=== PATIENT | female | born 1940 | race Caucasian/White ===

== ENCOUNTER → 2020-08-02 12:24 | Outpatient (BNVA) | payer MEDICARE, MEDICAID, SELFPAY | PROVIDERS: Visit Provider Nurse Practitioner Family | DX: M25.531 Pain in right wrist (principal) | CPT/HCPCS: 73110 ==

== ENCOUNTER 2022-11-12 18:51 | Inpatient (IN) | payer MEDICARE, MEDICAID, SELFPAY ==
[2022-11-12] VITALS (7 sets, daily range): BP systolic 135–166; BP diastolic 89–118; PULSE 93–112; RESP 20–27; TEMP 36.8–36.9; O2SAT 93–98; BMI 51.0
--- NOTE | 2022-11-12 18:55 | XRR_ITS ---
PROCEDURE INFORMATION: Exam: XR Chest Exam date and time: 11/12/2022 7:02 PM Age: 82 years old Clinical indication: Shortness of breath; Additional info: SOB TECHNIQUE: Imaging protocol: Radiologic exam of the chest. Views: 1 view. COMPARISON: No relevant prior studies available. FINDINGS: Lungs: The right lung is clear. Mild COPD likely. Left basilar atelectasis or scarring possible. Pleural spaces: Unremarkable. No pleural effusion. No pneumothorax. Heart/Mediastinum: The heart is large. Bones/joints: Unremarkable. XR/XR chest 1V portable [id number] IMPRESSION: 1. Large heart with vascular calcifications and mild COPD. 2. Left lung base atelectasis or scarring. Pneumonia less likely. Recommend 1 week follow-up two-view chest x-ray.
--- NOTE | 2022-11-12 18:56 | ED_ITS ---
HPI - SOB/Dyspnea General: Chief Complaint: Shortness of Breath/Dyspnea Stated Complaint: SOB Time Seen by Provider: 11/12/22 18:52 Source: patient Mode of arrival: ambulatory Limitations: no limitations History of Present Illness: HPI Narrative: 82-year-old female who has a history of COPD states over the last 2 days she has had cough congestion flulike symptoms she denies any fevers. Patient seen at clinic was 88% on room air was transferred here from the clinic. She denies any vomiting or diarrhea Associated symptoms: Deny abdominal pain, chest pain, nausea or vomiting Review of Systems Const: Reports: chills and body aches Eyes: Denies: blurry vision or eye discomfort ENMT: Denies: throat pain or dental pain Card: Denies: chest pain Resp: Reports: dyspnea and non-productive cough GI: Denies: abdominal pain, nausea, vomiting or diarrhea : Denies: dysuria Musc: Denies: neck pain or back pain Skin/Breast: Denies: rash Neuro: Denies: headache(s) Psych: Denies: depression [place]/Lymph: Denies: easy bruising All/Imm: Denies: urticaria PFSH ED PFSH: Medical History Major depressive disorder, recurrent, in full remission Psychiatric care Social History Smoking and tobacco status: never smoked Physical Exam Const: COMMON NORMALS: patient oriented x3 HENMT: COMMON NORMALS: normocephalic and atraumatic HEAD & SCALP: normocephalic and atraumatic Eye: COMMON NORMALS: Equal, round and reactive pupils present and EOMs intact bilaterally PUPIL: Yes Equal, round and reactive pupils present Neck/C-Spine: COMMON NORMALS: full ROM and supple Chest: COMMONS NORMALS: normal inspection of the chest and normal palpation of entire chest wall Resp: COMMON NORMALS: normal respiratory effort, No retractions, No use of accessory muscles and clear to auscultation bilaterally AUSCULTATION: clear to auscultation bilaterally Cardio: COMMON NORMALS: regular rate, regular rhythm and No murmurs present (Cardio) RATE: regular rate RHYTHM: regular rhythm GI: COMMON NORMALS: Normal to inspection, nondistended, normoactive bowel sounds present, Soft to palpation, non-tender and no masses PALPATION: Yes Soft to palpation Extremity: COMMON NORMALS: normal to inspection and full ROM Neuro: COMMON NORMALS: patient oriented x3, moves all extremities and no focal motor deficits Psych: COMMON NORMALS: mental status grossly normal, Normal thought process present and cooperative THOUGHT PROCESS: Normal thought process present Skin: COMMON NORMALS: no rashes or lesions noted and no wounds GENERAL SKIN EXAM: no rashes or lesions noted Course Vital Signs: Vital signs: Vital Signs Temperature 98.4 F 11/12/22 18:55 Pulse Rate 110 H 11/12/22 18:55 Respiratory Rate 24 H 11/12/22 18:55 Blood Pressure 156/96 11/12/22 18:55 Pulse Oximetry 98 11/12/22 18:55 MDM - SOB/Dyspnea Medical Decision Making Patient presents here with upper restaurant infection she had cough congestion she has been hypoxic as well did give her breathing treatment steroids she continued be hypoxic here requiring oxygen spoke to hospitalist will admit this time. Lab Data 11/12/22 19:30 11/12/22 19:30 Labs/Radiology: Radiology Impressions Chest X-Ray 11/12/22 18:55 IMPRESSION: 1. Large heart with vascular calcifications and mild COPD. 2. Left lung base atelectasis or scarring. Pneumonia less likely. Recommend 1 week follow-up two-view chest x-ray. Laboratory Results WBC 5.6 10^3/uL (4.0-10.0) 11/12/22 19:30 RBC 4.17 10^6/uL (4.1-5.3) 11/12/22 19:30 Hgb 12.6 g/dL (11.5-15.3) 11/12/22 19:30 Hct 40.2 % (37.0-47.0) 11/12/22 19:30 MCV 96.4 fl (81-99) 11/12/22 19:30 MCH 30.2 pg (28.0-34.0) 11/12/22 19:30 MCHC 31.3 g/dL (30.0-36.0) 11/12/22 19:30 RDW 12.6 % (12.1-15.1) 11/12/22 19:30 Plt Count 207 10^3/cmm (130-400) 11/12/22 19:30 MPV 10.4 fL (7.4-10.4) 11/12/22 19:30 Neut % (Auto) 70.3 % 11/12/22 19: Lymph % (Auto) 20.1 % 11/12/22 19:30 [place] % (Auto) 8.4 % 11/12/22 19:30 Eos % (Auto) 0.5 % 11/12/22 19:30 Baso % (Auto) 0.5 % 11/12/22 19:30 Neut # (Auto) 3.91 10^3/uL (1.8-7.7) 11/12/22 19: Lymph # (Auto) 1.1 10^3/uL (0.8-4.8) 11/12/22 19: [place] # (Auto) 0.5 10^3/uL (0.2-0.9) 11/12/22 19: Eos # (Auto) 0.0 10^3/uL (0.0-0.8) 11/12/22 19: Baso # (Auto) 0.0 10^3/uL (0.0-0.1) 11/12/22 19: Nucleated RBC % (auto) 0 % 11/12/22: Nucleated RBCs # 0.0 /100WBC 11/12/22 19:30 Specimen Type Arterial 11/12/22 19:03 Sample Site Radial, left 11/12/22 19:03 ABG pH 7.43 (7.35-7.45) 11/12/22 19:03 ABG pCO2 44.6 mmHg (35-45) 11/12/22 19:03 ABG pO2 69.1 mmHg (80.0-100.0) L 11/12/22 19:03 ABG HCO3 29.7 mmol/L (22-26) H 11/12/22 19:03 ABG Base Excess 4.6 mmol/L (-2.0-2.0) H 11/12/22 19:03 Ras Test Pos 11/12/22 19:03 Hematocrit 40.1 % (37-47) 11/12/22 19:03 Hgb O2 Saturation 93.4 % (95-100) L 11/12/22 19:03 Carboxyhemoglobin 1.1 %THgb (0.4-20.1) 11/12/22 19:03 Methemoglobin 0.9 % (0.4-1.5) 11/12/22 19:03 Total Hemoglobin 13.1 g/dL (12-16) 11/12/22 19:03 O2 Delivery Device Nc 11/12/22 19:03 O2 Liters/Min 3.0 % 11/12/22 19:03 FiO2 32.0 % 11/12/22 19:03 Accounts Receivable Manager ID [email or web address] 11/12/22 19:03 Sodium 135 mmol/L (136-145) L 11/12/22 19:30 Potassium 4.0 mmol/L (3.5-5.1) 11/12/22 19:30 Chloride 99 mmol/L (98-107) 11/12/22 19:30 Carbon Dioxide 25 mmol/L (22-29) 11/12/22 19:30 Anion Gap 15.0 (5-19) 11/12/22 19:30 BUN 14 mg/dL (8-23) 11/12/22 19:30 Creatinine 0.7 mg/dL (0.5-0.9) 11/12/22 19:30 GFR Calculation Not Reportable 11/12/22 19:30 Glucose 147 mg/dL (65-115) H 11/12/22 19:30 Calculated Osmolality 283 mOsm/kg (285-295) L 11/12/22 19:30 Calcium 9.1 mg/dL (8.5-10.5) 11/12/22 19:30 Total Bilirubin 0.2 mg/dL (0.15-1.2) 11/12/22 19:30 AST 39 U/L (0-32) H 11/12/22 19:30 ALT 33 U/L (0-33) 11/12/22 19:30 Alkaline Phosphatase 102 U/L (35-105) 11/12/22 19:30 NT-Pro-B Natriuret Pep 1215 pg/mL (0-450) H 11/12/22 19:30 Total Protein 6.9 g/dL (6.6-8.7) 11/12/22 19:30 Albumin 3.3 g/dL (3.5-5.2) L 11/12/22 19:30 Globulin 3.6 g/dL (1.3-4.6) 11/12/22 19:30 Influenza Type A Ag negative (Negative) 11/12/22 19:30 Influenza Type B Ag negative (Negative) 11/12/22 19:30 SARS-CoV-2 Ag (Rapid) negative (Negative) 11/12/22 19:30 EKG Data EKG 1: I personally reviewed and interpreted this EKG as follows: EKG Interpretation Date: 11/12/22 EKG interpretation time: 19:07 Interpretation: nsr hr [address] or t wave abnormalities qrs 95 qtc 383 Discharge Plan Discharge Patient Disposition: Admitted As Inpatient Clinical Impression: Acute respiratory failure with hypoxia, Upper respiratory infection Condition: Stable Coding Level of Care Code ED Professor Of Special Education for Estevan Fwd Exam Comprehensive
--- NOTE | 2022-11-12 19:07 | ECG_ITS ---
[facility] Test Date: 2022-11-12 Pat Name: Shellie Odell Department: Room: Gender: Female Network Infrastructure Architect: : 1940 Requested By: Meghann Hayden Order Number: [id number] Nida MD: Paulo Nam M.D. Measurements Intervals [place] Rate: 92 P: 29 NE: 149 QRS: -12 QRSD: 95 T: 26 QT: 334 QTc: 413 Interpretive Statements SINUS RHYTHM WITH SINUS ARRHYTHMIA POSSIBLE ANTERIOR MYOCARDIAL INFARCTION , PROBABLY OLD [30 ms Q WAVE IN V3/V4, OR R < 0.2 mV IN V4] No previous ECG available for comparison Electronically Signed On 11-13-2022 20:16:39 SMUTTER by Paulo Nam M.D. [id number]
[2022-11-12 19:15] LABS: ABG PCO2 44.6 mmHg (35-45); ABG PH Result 7.43 (7.35-7.45); Arterial Blood Gas Hematocrit 40.1 % (37-47); Base Excess ABG 4.6 mmol/L (-2.0-2.0); Blood Gas Allen Test Pos; Blood Gas Sample Site Radial, left; Blood Gas Sample Type Arterial; Carboxyhemoglobin 1.1 %THgb (0.4-20.1); HCO3 ABG 29.7 mmol/L (22-26); HGB O2 Sat 93.4 % (95-100); Methemoglobin 0.9 % (0.4-1.5); Oxygen Device NC; PO2 ABG 69.1 mmHg (80.0-100.0); Total Hemoglobin 13.1 g/dL (12-16)
[2022-11-12 19:35] LABS: Basophils % 0.5 %; Eosinophils % 0.5 %; Hematocrit 40.2 % (37.0-47.0); Hemoglobin 12.6 g/dL (11.5-15.3); Lymphocytes # 1.1 10^3/uL (0.8-4.8); Lymphocytes % 20.1 %; Mean Corpuscular HGB Conc 31.3 g/dL (30.0-36.0); Mean Corpuscular Hemoglobin 30.2 pg (28.0-34.0); Mean Corpuscular Volume 96.4 fl (81-99); Mean Platelet Volume 10.4 fL (7.4-10.4); Monocytes # 0.5 10^3/uL (0.2-0.9); Monocytes % 8.4 %; Neutrophils # 3.91 10^3/uL (1.8-7.7); Neutrophils % 70.3 %; Nucleated Red Blood Cells % 0 %; Platelet Count 207 10^3/cmm (130-400); Red Blood Count 4.17 10^6/uL (4.1-5.3); Red Cell Distribution Width 12.6 % (12.1-15.1); White Blood Count 5.6 10^3/uL (4.0-10.0)
[2022-11-12 19:51] LABS: Influenza A by IFA negative (Negative); Influenza B by IFA negative (Negative); SARS Covid-2 Antigen negative (Negative)
[2022-11-12 20:04] LABS: Alanine Aminotransferase 33 U/L (0-33); Albumin Level 3.3 g/dL (3.5-5.2); Alkaline Phosphatase 102 U/L (35-105); Aspartate Amino Transferase 39 U/L (0-32); Blood Urea Nitrogen 14 mg/dL (8-23); Calcium 9.1 mg/dL (8.5-10.5); Carbon Dioxide 25 mmol/L (22-29); Chloride 99 mmol/L (98-107); Globulin 3.6 g/dL (1.3-4.6); Glucose 147 mg/dL (65-115); NT Pro B Type Natriuretic Pept 1215 pg/mL (0-450); Osmolality Calculated 283 mOsm/kg (285-295); Sodium 135 mmol/L (136-145); Total Bilirubin 0.2 mg/dL (0.15-1.2); Total Protein 6.9 g/dL (6.6-8.7)
[2022-11-12] MEDS: cefTRIAXone 1,000 MG in sodium chloride 0.9% (plus) 50 ML 100 MG IV (21:06)
--- NOTE | 2022-11-12 21:21 | ECG_ITS ---
[facility] Test Date: 2022-11-12 Pat Name: Shellie Odell Department: Room: 279 Gender: Female Supervisor Properties: : 1940 Requested By: Pastor Troy Order Number: [id number] Nida MD: Paulo Nam M.D. Measurements Intervals [place] Rate: 96 P: 34 [place]: 152 QRS: -14 QRSD: 96 T: 62 QT: 349 QTc: 441 Interpretive Statements SINUS RHYTHM WITH SINUS ARRHYTHMIA LOW QRS VOLTAGE IN PRECORDIAL LEADS [QRS DEFLECTION < 1.0 mV IN CHEST LEADS] PATTERN CONSISTENT WITH PULMONARY DISEASE Compared to ECG 11/12/2022 19:07:18 Low QRS voltage now present Myocardial infarct finding no longer present Electronically Signed On 11-13-2022 20:17:03 LANGUAGE THERAPIST by Paulo Nam M.D. [id number]
--- NOTE | 2022-11-12 21:27 | PM.HP ---
Providers/Chief Complaint Admitting Physician: Pastor Troy MD Primary Care Provider: Edmundo Sanders MD Chief Complaint: SOB History of Present Illness Shellie Odell is a 82 year old female with a past medical history of morbid obesity, history of tremor, history of depression, hypothyroidism, hyperlipidemia who presents [facility] due to increased shortness of breath, wheezing, cough. Patient tells that she does not have a history of smoking, but has COPD or asthma but her primary care provider is unsure. For the last few months she has been feeling increasingly short of breath, has had increased lower extremity edema, no chest pain, no palpitations, for the last few days her shortness of breath, and cough has worsened. She denies any fevers, she has been on antibiotics for UTI. Review of Systems Const: Denies: fever(s) Card: Denies: chest pain or palpitations Resp: Reports: dyspnea GI: Denies: abdominal pain Neuro: Denies: headache(s) Medications/Allergies Home Medications Medication Instructions Recorded Confirmed Last Taken Type atenolol 50 mg tablet 50 mg PO DAILY 01/10/20 11/12/22 Unknown History fexofenadine 60 mg tablet (Omaira 60 mg PO DAILY 01/10/20 11/12/22 Unknown History Allergy) levothyroxine 88 mcg capsule 88 mcg PO DAILY 01/10/20 11/12/22 Unknown History primidone 50 mg tablet (Mysoline) 300 mg PO .bedtime 01/10/20 11/12/22 Unknown History simvastatin 20 mg tablet (Zocor) 20 mg PO DAILY 01/10/20 11/12/22 Unknown History tramadol 50 mg tablet 50 mg PO QID PRN 01/10/20 11/12/22 Unknown History naproxen 500 mg tablet 500 mg PO BID PRN pain #30 tabs 08/02/20 11/12/22 Unknown Rx fluvoxamine 100 mg tablet See Rx Instructions .Route 08/24/22 11/12/22 Unknown Rx .COMPLEX #60 tabs fluvoxamine 50 mg tablet See Rx Instructions .Route 08/24/22 11/12/22 Unknown Rx .COMPLEX #30 tabs trazodone 150 mg tablet See Rx Instructions .Route 08/24/22 11/12/22 Unknown Rx .COMPLEX #60 tabs Allergies Allergy/AdvReac Type Severity Reaction Status Date / Time clarithromycin [From Biaxin] Allergy Unknown Unknown Verified 11/12/22 17:05 levofloxacin [From Levaquin] Allergy Unknown unk Verified 11/12/22 17:05 Sulfa (Sulfonamide Allergy Unknown unk Verified 11/12/22 17:05 Antibiotics) PFSH Acute PFSH: Medical History (Updated 11/12/22 @ 21:32 by Pastor Troy MD) Major depressive disorder, recurrent, in full remission Psychiatric care Surgical History (Updated 11/12/22 @ 21:29 by Pastor Troy MD) History of right knee surgery Family History (Updated 11/12/22 @ 21:29 by Pastor Troy MD) Other Hypertension Social History (Updated 11/12/22 @ 21:29 by Pastor Tryo MD) Smoking and tobacco status: never smoked Alcohol intake: never Substance/Drug Use: never Vitals/I&O/Wt Last Vital Signs Temp 98.4 F 11/12/22 18:55 Pulse 112 H 11/12/22 21:06 Resp 27 H 11/12/22 21:06 BP 135/89 11/12/22 21:06 Pulse Ox 96 11/12/22 21:06 O2 Del Method 11/12/22 21:06 O2 Flow Rate 2 11/12/22 21:06 Weight last 48 hrs Weight 114.759 kg Physical Exam Const: COMMON NORMALS: no acute distress and patient oriented x3 HENMT: COMMON NORMALS: normocephalic HEAD & SCALP: normocephalic Eye: COMMON NORMALS: Equal, round and reactive pupils present and EOMs intact bilaterally Neck/C-Spine: COMMON NORMALS: no JVD Resp: COMMON NORMALS: normal respiratory effort, No retractions and No use of accessory muscles AUSCULTATION: crackles Cardio: COMMON NORMALS: regular rate, regular rhythm, S1 normal heart sound present and S2 normal heart sound present RATE: regular rate RHYTHM: regular rhythm HEART SOUNDS: S1 normal heart sound present and S2 normal heart sound present GI: COMMON NORMALS: Normal to inspection, nondistended, normoactive bowel sounds present, Soft to palpation and non-tender PALPATION: Yes Soft to palpation and Yes No hepatosplenomegaly present Extremity: COMMON NORMALS: no calf tenderness NARRATIVE EXTREMITY EXAM: Has 2+ pitting edema Neuro: COMMON NORMALS: patient oriented x3, CN's II-XII intact bilaterally, moves all extremities and no focal motor deficits Psych: COMMON NORMALS: mental status grossly normal Data 11/12/22 19:30 11/12/22 19:30 Micro: Microbiology 11/12/22 20:32 Blood Culture - Preliminary Blood SPECIMEN COLLECTED 11/12/22 20:27 Blood Culture - Preliminary Blood SPECIMEN COLLECTED A&P Assessment and plan (1) Shortness of breath: (2) Hypoxia: Plan Shortness of breath and hypoxia -Likely secondary to CHF exacerbation, has lower extremity pitting edema, crackles on exam elevated BNP -Chest x-ray also shows vascular congestion -No focal infiltrates, however has been given Rocephin and doxycycline for concern for infection although I feel likely CRP, Pro-Mauro, sputum cultures, blood cultures pending -Was also given Solu-Medrol however no history of smoking she has been told that she has COPD or asthma but she is unsure, no wheezing-hold off any further steroids -For now we will start on Lasix 40 IV twice daily, for now monitor urine output, potassium, cardiac echo -Telemetry monitoring, serial EKGs, serial troponins -PT OT -DNR/DNI -Lovenox for DVT prophylaxis Attestations Medical Necessity Statement*: Patient requires hospitalization for shortness of breath, hypoxia, inpatient, greater than 2 midnights Coding Level of Care Code Acute Daycare Manager for Estevan Baker Diagnoses Shortness of breath R06.02 Hypoxia R09.02
[2022-11-12 21:52] LABS: C Reactive Protein 28.7 mg/L (0.0-4.9)
[2022-11-12 21:53] LABS: Troponin(5th) Baseline 15 ng/L (0-10)
[2022-11-12 21:57] LABS: Procalcitonin 0.28 ng/mL (0-0.5)
[2022-11-12] MEDS: doxycycline 100 MG in sodium chloride 0.9% (plus) 100 ML IV (22:12)
[2022-11-12] MEDS: pantoprazole 40 mg SDV IVP (22:34)
[2022-11-12] MEDS: FUROsemide 10 mg/mL SDV 4mL 40 MG IVP (22:34)
[2022-11-12] MEDS: primidone 50 mg Tablet 300 MG PO (22:39)
[2022-11-12] MEDS: trazodone 150 mg Tablet 300 MG PO (22:40)
[2022-11-12] MEDS: enoxaparin 40 mg/0.4 mL Syringe SUBCUT (22:40)
--- NOTE | 2022-11-12 23:19 | ECG_ITS ---
[facility] Test Date: 2022-11-13 Pat Name: Shellie Odell Department: Room: 279 Gender: Female Clinical Nurse Reviewer: : 1940 Requested By: Pastor Troy Order Number: [id number] Nida MD: Paulo Nam M.D. Measurements Intervals [place] Rate: 99 P: 70 [place]: 156 QRS: -12 QRSD: 96 T: 57 QT: 311 QTc: 400 Interpretive Statements SINUS RHYTHM WITH SINUS ARRHYTHMIA NONSPECIFIC T-WAVE ABNORMALITY Compared to ECG 11/13/2022 00:19:15 T-wave abnormality now present Myocardial infarct finding no longer present Electronically Signed On 11-13-2022 20:24:35 FLANGE TURNER by Paulo Nam M.D. [id number]
[2022-11-13] VITALS (10 sets, daily range): BP systolic 151–159; BP diastolic 74–81; PULSE 81–102; RESP 17–20; TEMP 36.8–37; O2SAT 95–98
--- NOTE | 2022-11-13 00:19 | ECG_ITS ---
[facility] Test Date: 2022-11-13 Pat Name: Shellie Odell Department: Room: 279 Gender: Female Casting Technician: : 1940 Requested By: Pastor Troy Order Number: [id number] Nida MD: Paulo Nam M.D. Measurements Intervals [place] Rate: 87 P: 36 [place]: 161 QRS: -14 QRSD: 99 T: 62 QT: 345 QTc: 417 Interpretive Statements SINUS RHYTHM WITH MARKED SINUS ARRHYTHMIA LOW QRS VOLTAGE IN PRECORDIAL LEADS [QRS DEFLECTION < 1.0 mV IN CHEST LEADS] POSSIBLE ANTERIOR MYOCARDIAL INFARCTION , PROBABLY OLD [30 ms Q WAVE IN V3/V4, OR R < 0.2 mV IN V4] Compared to ECG 11/12/2022 22:31:11 Myocardial infarct finding now present Electronically Signed On 11-13-2022 20:24:18 CRYOGENICS ENGINEER by Paulo Nam M.D. [id number]
[2022-11-13 05:57] LABS: Hematocrit 38.2 % (37.0-47.0); Mean Corpuscular Hemoglobin 29.6 pg (28.0-34.0); Mean Corpuscular Volume 94.1 fl (81-99); Red Blood Count 4.06 10^6/uL (4.1-5.3)
[2022-11-13 05:58] LABS: Basophils % 0.2 %; Lymphocytes # 0.8 10^3/uL (0.8-4.8); Lymphocytes % 16.3 %; Mean Corpuscular HGB Conc 31.4 g/dL (30.0-36.0); Mean Platelet Volume 10.7 fL (7.4-10.4); Monocytes # 0.1 10^3/uL (0.2-0.9); Monocytes % 1.8 %; Neutrophils # 4.04 10^3/uL (1.8-7.7); Neutrophils % 81.1 %; Nucleated Red Blood Cells % 0 %; Platelet Count 195 10^3/cmm (130-400); Red Cell Distribution Width 12.6 % (12.1-15.1)
--- NOTE | 2022-11-13 06:00 | USCV_ITS ---
Shellie Odell Age: 82 Gender: F : 1940 Exam Date: 11/13/2022 08:21 Ordering Phys: Pastor Troy MD Technologist: RENY Exam Location: [facility] [place] Indication: SHORTNESS OF BREATH BP: 159 / 81 HR: 87 Rhythm: Sinus Technical Quality: Suboptimal MEASUREMENTS (Male / Female) Normal Values 2D ECHO LVOT Diameter 2.0 cm LV Ejection Fraction MOD 2C 65.1 % LV Ejection Fraction 2C AL 66.0 % LA Diameter 3.7 cm LA Width 3.4 cm LA Height 5.2 cm RA Width 3.5 cm RA Height 4.1 cm Aorta at Sinotubular Diameter 2.6 cm IVC Diameter 1.8 cm M-MODE Aortic Annulus Diameter 3.0 cm LA Ao Ratio MM 1.2 MV E Point Septal Separation 0.6 cm DOPPLER AV Peak Velocity 128.0 cm/s LVOT Peak Velocity 112.0 cm/s AV Area Cont Eq vti 2.7 cm squared AV Area Cont Eq pk 2.6 cm squared MV Peak Velocity 119.0 cm/s MV Area PHT 2.3 cm squared Mitral E to A Ratio 0.5 MV E' Velocity 29.0 cm/s Mitral E to MV E' Ratio 8.1 Mitral E to LV E' Lateral Ratio 9.8 Mitral E to LV E' Septal Ratio 7.0 TR Peak Velocity 180.1 cm/s TR Peak Gradient 13.0 mmHg TR Mean Velocity 115.1 cm/s TR Mean Gradient 6.3 mmHg TR Velocity Time Integral 40.3 cm TV Peak E Velocity 36.0 cm/s Right Atrial Pressure 3.0 mmHg Pulmonary Artery Systolic Pressu 16.0 mmHg PV Peak Velocity 134.0 cm/s RV Acceleration Time 0.1 s RV Ejection Time 0.3 s RV AcT/ET 0.3 FINDINGS Left Ventricle Normal left ventricular size and systolic function, EF 65 %. Mild left ventricular hypertrophy. No regional wall motion abnormalities. Grade I/IV diastolic dysfunction (abnormal relaxation filling pattern), normal to mildly elevated filling pressures. Right Ventricle The right ventricle is normal in size and function. Right Atrium The right atrium is normal in size. Left Atrium Mildly increased left atrial size. Mitral Valve No gross abnormalities noted Aortic Valve Thickened aortic valve. Tricuspid Valve Trace tricuspid valve regurgitation. Estimated pulmonary artery peak systolic pressure 16 mmHg Pulmonic Valve Pulmonic valve not well visualized. Pericardium Normal pericardium without effusion. Aorta Normal ascending aorta dimension. IVC The inferior vena cava appears normal. CONCLUSIONS Normal left ventricular size and systolic function, EF 65 %. Mild left ventricular hypertrophy. No regional wall motion abnormalities. Grade I/IV diastolic dysfunction (abnormal relaxation filling pattern), normal to mildly elevated filling pressures. Mildly increased left atrial size. Trace tricuspid valve regurgitation. Estimated pulmonary artery peak systolic pressure 16 mmHg. There is no pericardial effusion. There are no intracardiac masses. No similar previous studies are available for comparison Dr Paulo Nam MD [facility] (Electronically Signed) Final Date: 13 November 2022 17:07 S
[2022-11-13 06:18] LABS: Troponin 5 6HR 15.89 ng/L (0-10)
[2022-11-13 06:21] LABS: Troponin 5 6HR Delta 0.89 ng/L (0-12)
[2022-11-13 06:31] LABS: Blood Urea Nitrogen 18 mg/dL (8-23); Calcium 8.7 mg/dL (8.5-10.5); Carbon Dioxide 26 mmol/L (22-29); Glucose 231 mg/dL (65-115); NT Pro B Type Natriuretic Pept 1159 pg/mL (0-450); Thyroid Stimulating Hormone 1.46 uIU/mL (0.27-4.20)
[2022-11-13 07:01] LABS: Anion Gap 16.1 (5-19); Chloride 101 mmol/L (98-107); Osmolality Calculated 297 mOsm/kg (285-295); Potassium 4.1 mmol/L (3.5-5.1); Sodium 139 mmol/L (136-145)
[2022-11-13] MEDS: levothyroxine 88 mcg Tablet PO (09:25)
[2022-11-13] MEDS: atorvastatin 40 mg Tablet 20 MG PO (09:25)
[2022-11-13] MEDS: atenolol 50 mg Tablet PO (09:25)
[2022-11-13] MEDS: FUROsemide 10 mg/mL SDV 4mL 40 MG IVP ×2 (09:25→22:14)
[2022-11-13] MEDS: doxycycline 100 MG in sodium chloride 0.9% (plus) 100 ML IV (09:26)
--- NOTE | 2022-11-13 10:26 | PM.PN ---
Subjective Subjective: Patient here with new onset congestive heart failure I did tell her about murmur She is not complaining of any active chest pain, work with PT today Endorsing orthopnea and PND Vitals/I&O/Wt Last Vital Signs Temp 98.4 F 11/13/22 04:56 Pulse 88 11/13/22 08:00 Resp 20 H 11/13/22 08:00 BP 159/81 11/13/22 04:56 Pulse Ox 95 11/13/22 08:00 O2 Del Method 11/13/22 08:00 O2 Flow Rate 2 11/13/22 08:00 11/12/22 11/13/22 11/13/22 22:59 06:59 14:59 Intake Total 830 / 830 100 / 930 150 / 150 Output Total 1100 / 1100 Balance 830 / 830 -1000 / -170 150 / 150 Weight last 48 hrs Weight 114.759 kg Physical Exam Narrative: Mild signs of history of heart failure Awake and alert Currently 2 L nasal cannula Saturating well Abdomen soft Pleasant and cooperative Nonfocal neuro exam No acute distress Edema, PERRLA Urinary Catheter Management: Macario: Cath Placed During This Visit: yes Reason for Continuing Indwelling Catheter: Acute Urinary Retention or Obstruction Urinary Catheter Date of Insertion: 11/12/22 Urinary Catheter Time of Insertion: 23:22 Data 11/13/22 05:35 11/13/22 05:35 Micro: Microbiology 11/12/22 20:32 Blood Culture - Preliminary Blood SPECIMEN COLLECTED 11/12/22 20:27 Blood Culture - Preliminary Blood SPECIMEN COLLECTED A&P Assessment and plan (1) Hypoxia: (2) Shortness of breath: (3) Acute respiratory failure with hypoxia: (4) Upper respiratory infection: (5) New onset of congestive heart failure: Plan Acute hypoxia related to new onset CHF Requested echo No active chest pain or shortness of breath She did well with PT Aortic stenosis murmur appreciated on clinical exam Follow-up with echo Agree with IV Lasix for now Discontinue antibiotics No signs of pneumonia She has been afebrile Hypertensive urgency: Adjust antihypertensive regimen, add VAZQUEZ inhibitor Wean oxygen to room air DNR/DNI Cardiac diet DVT prophylaxis on board Attestations Medical Necessity Statement*: Anticipate discharge within 48 hours Time Spent in Patient Care: 40 Coding Level of Care Code Acute Robotic Technician for g Fwd Diagnoses Hypoxia R09.02 Shortness of breath R06.02 Acute respiratory failure with hypoxia J96.01 Upper respiratory infection J06.9 New onset of congestive heart failure I50.9
[2022-11-13] MEDS: lisinopril 10 mg Tablet PO ×2 (11:28→17:30)
--- NOTE | 2022-11-13 11:35 | PC.OT ---
OT EVALUATION ORDERS RECEIVED. PATIENT DEMONSTRATES NO DEFICITS WITH ADL PERFORMANCE. NO SKILLED OT REQUIRED AT THIS TIME.
[2022-11-13] MEDS: trazodone 150 mg Tablet 300 MG PO (21:39)
[2022-11-13] MEDS: primidone 50 mg Tablet 300 MG PO (21:39)
[2022-11-13] MEDS: enoxaparin 40 mg/0.4 mL Syringe SUBCUT (21:46)
[2022-11-13] MEDS: pantoprazole 40 mg SDV IVP (22:14)
[2022-11-14] VITALS (7 sets, daily range): BP systolic 124–145; BP diastolic 61–74; PULSE 92–109; RESP 18–25; TEMP 36.5–37.2; O2SAT 84–97
[2022-11-14 04:12] LABS: Basophils % 0.2 %; Eosinophils # 0.1 10^3/uL (0.0-0.8); Hematocrit 37.1 % (37.0-47.0); Hemoglobin 11.7 g/dL (11.5-15.3); Lymphocytes # 1.7 10^3/uL (0.8-4.8); Lymphocytes % 17.5 %; Mean Corpuscular HGB Conc 31.5 g/dL (30.0-36.0); Mean Corpuscular Hemoglobin 29.8 pg (28.0-34.0); Mean Corpuscular Volume 94.6 fl (81-99); Mean Platelet Volume 10.5 fL (7.4-10.4); Monocytes # 0.7 10^3/uL (0.2-0.9); Monocytes % 7.2 %; Neutrophils # 7.07 10^3/uL (1.8-7.7); Neutrophils % 73.9 %; Nucleated Red Blood Cells % 0 %; Platelet Count 208 10^3/cmm (130-400); Red Blood Count 3.92 10^6/uL (4.1-5.3); Red Cell Distribution Width 12.8 % (12.1-15.1); White Blood Count 9.6 10^3/uL (4.0-10.0)
[2022-11-14 04:42] LABS: Anion Gap 14.9 (5-19); Blood Urea Nitrogen 29 mg/dL (8-23); Carbon Dioxide 30 mmol/L (22-29); Chloride 101 mmol/L (98-107); Glucose 172 mg/dL (65-115); Osmolality Calculated 304 mOsm/kg (285-295); Potassium 3.9 mmol/L (3.5-5.1); Sodium 142 mmol/L (136-145)
--- NOTE | 2022-11-14 06:59 | PM.DCS ---
Discharge Providers Date of Admission: 11/12/22 20:56 Date of Discharge: November 14, 2022 Attending Provider at Admission: Pastor Troy MD Attending Provider at Discharge: Monica Waters MD Primary Care Provider: Edmundo Rodrigues MD Diagnoses at Discharge Discharge Diagnosis (1) Hypoxia: Status: Acute (2) Shortness of breath: Status: Acute (3) Acute respiratory failure with hypoxia: Status: Acute (4) Upper respiratory infection: Status: Acute (5) New onset of congestive heart failure: Status: Acute Reason for Visit Reason for Visit: SOB Hospital Course Hospital Course 82-year-old female who was admitted for management of orthopnea, PND dyspnea on exertion. She was diagnosed with new onset congestive heart failure, echo was requested as on clinical exam pansystolic murmur was noted. Echo revealed diastolic dysfunction without any significant valvular abnormality other than TR. Patient required 2 L of oxygen, will do home O2 evaluation before discharge, she remained hemodynamically stable. No wall motion abnormality evident on echo report. Patient never experienced any chest pain. She is na?ve to diuretics, will give her 20 mg of p.o. Lasix along potassium supplement. I will have her follow-up with her PCP. I have given her referral for sleep study, qualified for 2 L of oxygen. All questions were answered to her satisfaction, she had question regarding asthma, I highly doubt that she will develop asthma at this age with there is no childhood history of reversible bronchospasm, will give her rescue inhaler Physical Exam Narrative: Mild signs of fluid overload: Improving 2 L nasal cannula No active respiratory distress S1, S2 Abdomen soft Extremity trace edema Pleasant and cooperative Pansystolic murmur Urinary Catheter Management: Macario: Cath Placed During This Visit: yes Reason for Continuing Indwelling Catheter: Other Urinary Catheter Date of Insertion: 11/12/22 Urinary Catheter Time of Insertion: 23:22 Discharge Data Studies Completed and Pending Completed Studies During Hospitalization Category Date Time Status XR chest 1V portable [id number] Stat Exams 11/12/22 18:55 Completed CV. echo complete* [id number] Stat Ultrasound 11/13/22 06:00 Completed Pending at discharge Category Date Time Status Blood Culture Stat Lab 11/12/22 20:32 Results Sputum Culture and Gram Stain Stat Lab 11/12/22 21:21 Uncollected Radiology Impressions Chest X-Ray 11/12/22 18:55 IMPRESSION: 1. Large heart with vascular calcifications and mild COPD. 2. Left lung base atelectasis or scarring. Pneumonia less likely. Recommend 1 week follow-up two-view chest x-ray. Laboratory Results WBC 9.6 10^3/uL (4.0-10.0) 11/14/22 03:14 RBC 3.92 10^6/uL (4.1-5.3) L 11/14/22 03:14 Hgb 11.7 g/dL (11.5-15.3) 11/14/22 03:14 Hct 37.1 % (37.0-47.0) 11/14/22 03:14 MCV 94.6 fl (81-99) 11/14/22 03:14 MCH 29.8 pg (28.0-34.0) 11/14/22 03:14 MCHC 31.5 g/dL (30.0-36.0) 11/14/22 03:14 RDW 12.8 % (12.1-15.1) 11/14/22 03:14 Plt Count 208 10^3/cmm (130-400) 11/14/22 03:14 MPV 10.5 fL (7.4-10.4) H 11/14/22 03:14 Neut % (Auto) 73.9 % 11/14/22 03:14 Lymph % (Auto) 17.5 % 11/14/22 03:14 [place] % (Auto) 7.2 % 11/14/22 03:14 Eos % (Auto) 1.0 % 11/14/22 03:14 Baso % (Auto) 0.2 % 11/14/22 03:14 Neut # (Auto) 7.07 10^3/uL (1.8-7.7) 11/14/22 03:14 Lymph # (Auto) 1.7 10^3/uL (0.8-4.8) 11/14/22 03:14 [place] # (Auto) 0.7 10^3/uL (0.2-0.9) 11/14/22 03:14 Eos # (Auto) 0.1 10^3/uL (0.0-0.8) 11/14/22 03:14 Baso # (Auto) 0.0 10^3/uL (0.0-0.1) 11/14/22 03:14 Nucleated RBC % (auto) 0 % 11/14/22 03:14 Nucleated RBCs # 0.0 /100WBC 11/14/22 03:14 Specimen Type Arterial 11/12/22 19:03 Sample Site Radial, left 11/12/22 19:03 ABG pH 7.43 (7.35-7.45) 11/12/22 19:03 ABG pCO2 44.6 mmHg (35-45) 11/12/22 19:03 ABG pO2 69.1 mmHg (80.0-100.0) L 11/12/22 19:03 ABG HCO3 29.7 mmol/L (22-26) H 11/12/22 19:03 ABG Base Excess 4.6 mmol/L (-2.0-2.0) H 11/12/22 19:03 Ras Test Pos 11/12/22 19:03 Hematocrit 40.1 % (37-47) 11/12/22 19:03 Hgb O2 Saturation 93.4 % (95-100) L 11/12/22 19:03 Carboxyhemoglobin 1.1 %THgb (0.4-20.1) 11/12/22 19:03 Methemoglobin 0.9 % (0.4-1.5) 11/12/22 19:03 Total Hemoglobin 13.1 g/dL (12-16) 11/12/22 19:03 O2 Delivery Device Nc 11/12/22 19:03 O2 Liters/Min 3.0 % 11/12/22 19:03 FiO2 32.0 % 11/12/22 19:03 Parts Delivery Driver ID Kelly 11/12/22 19:03 Sodium 142 mmol/L (136-145) 11/14/22 03:14 Potassium 3.9 mmol/L (3.5-5.1) 11/14/22 03:14 Chloride 101 mmol/L (98-107) 11/14/22 03:14 Carbon Dioxide 30 mmol/L (22-29) H 11/14/22 03:14 Anion Gap 14.9 (5-19) 11/14/22 03:14 BUN 29 mg/dL (8-23) H 11/14/22 03:14 Creatinine 1.0 mg/dL (0.5-0.9) H 11/14/22 03:14 GFR Calculation Not Reportable 11/14/22 03:14 Glucose 172 mg/dL (65-115) H 11/14/22 03:14 Calculated Osmolality 304 mOsm/kg (285-295) H 11/14/22 03:14 Calcium 9.0 mg/dL (8.5-10.5) 11/14/22 03:14 Total Bilirubin 0.2 mg/dL (0.15-1.2) 11/12/22 19:30 AST 39 U/L (0-32) H 11/12/22 19:30 ALT 33 U/L (0-33) 11/12/22 19:30 Alkaline Phosphatase 102 U/L (35-105) 11/12/22 19:30 Troponin T Baseline 15 ng/L (0-10) H 11/12/22 19:30 Troponin T 120 Minute 17.10 ng/L (0-10) H 11/12/22 21:40 Delta Troponin T 2.10 ABS# (0-10) 11/12/22 21:40 Troponin T Hi Sens 6Hr 15.89 ng/L (0-10) H 11/13/22 05:35 Troponin T Hi Sens 6Hr Delta 0.89 ng/L (0-12) 11/13/22 05:35 C-Reactive Protein 28.7 mg/L (0.0-4.9) H 11/12/22 19:30 NT-Pro-B Natriuret Pep 1159 pg/mL (0-450) H 11/13/22 05:35 NT-Pro-B Natriuret Pep Cancelled 11/13/22 05:35 Total Protein 6.9 g/dL (6.6-8.7) 11/12/22 19:30 Albumin 3.3 g/dL (3.5-5.2) L 11/12/22 19:30 Globulin 3.6 g/dL (1.3-4.6) 11/12/22 19:30 Procalcitonin 0.28 ng/mL (0-0.5) 11/12/22 19:30 TSH 1.46 uIU/mL (0.27-4.20) 11/13/22 05:35 Influenza Type A Ag negative (Negative) 12/31/22 19:30 Influenza Type B Ag negative (Negative) 11/12/22 19:30 SARS-CoV-2 Ag (Rapid) negative (Negative) 11/12/22 19:30 Vitals Last Vital Signs Temp 98.8 F 11/14/22 03:35 Pulse 92 11/14/22 06:00 Resp 21 H 11/14/22 03:35 BP 142/74 11/14/22 03:35 Pulse Ox 91 11/14/22 03:35 O2 Del Method 11/14/22 03:35 O2 Flow Rate 2 11/13/22 20:00 Discharge Plan Discharge Patient Disposition: Home Condition: Stable Prescriptions: New potassium chloride 10 mEq tablet extended release 10 meq PO DAILY Qty: 60 0RF Rx Instructions: Potassium to be taken only with Lasix, otherwise do not furosemide [Lasix] 20 mg tablet 20 mg PO DAILY Qty: 60 0RF lisinopril 10 mg Tablet 20 mg PO DAILY Qty: 60 3RF albuterol sulfate 90 mcg/actuation HFA aerosol inhaler 2 inh inhalation Q8H PRN (Reason: shortness of breath or wheezing) Qty: 8.5 2RF Continued fexofenadine [Oamira Allergy] 60 mg tablet 60 mg PO DAILY primidone [Mysoline] 50 mg tablet 300 mg PO BEDTIME tramadol 50 mg tablet 50 mg PO QID PRN (Reason: Pain) atenolol 50 mg tablet 50 mg PO DAILY fluvoxamine 100 mg tablet See Rx Instructions .ROUTE .COMPLEX Qty: 60 3RF Dose Instruction: TAKE 1 TABLET BY MOUTH TWICE A DAY Rx Instructions: TAKE 1 TABLET BY MOUTH TWICE A DAY trazodone 150 mg tablet See Rx Instructions .ROUTE .COMPLEX Qty: 60 3RF Dose Instruction: TAKE 2 TABLETS BY MOUTH AT BEDTIME Rx Instructions: TAKE 2 TABLETS BY MOUTH AT BEDTIME levothyroxine 125 mcg tablet 125 mcg PO DAILY montelukast 10 mg Tablet 10 mg PO DAILY fluvoxamine 50 mg tablet 50 mg PO QAM Rx Instructions: Take with 100 mg to equal 150mg in the morning Discontinued naproxen 500 mg tablet 500 mg PO BID PRN (Reason: pain) Qty: 30 0RF Discharge Orders: Discharge Order (Routine); Ordered 11/14/22 Ordered By: Monica Waters Other Ambulatory Orders: Sleep Study/Titration (Routine) Timeframe: 2 Weeks Facility: [facility] Location: [facility] Ordered By: Monica Waters DME: Oxygen (Order) Location: None Selected Ordered By: Monica Waters Referrals: EDMUNDO RODRIGUES MD [Primary Care Provider] - Discharge Diet: Low Salt Discharge Activity: Increase activity as tolerated Patient Instructions: Opioid Safety Discharge Attestations Time Spent in Discharge Care*: less than 30 min Quality Metrics Clinical Quality Measures [ No reported AMI, CVA or VTE this stay] Coding Level of Care Code Acute Chg FW DC note Diagnoses Hypoxia R09.02 Shortness of breath R06.02 Acute respiratory failure with hypoxia J96.01 Upper respiratory infection J06.9 New onset of congestive heart failure I50.9
[2022-11-14] MEDS: levothyroxine 88 mcg Tablet PO (08:49)
[2022-11-14] MEDS: atenolol 50 mg Tablet PO (08:49)
[2022-11-14] MEDS: atorvastatin 40 mg Tablet 20 MG PO (08:49)
[2022-11-14] MEDS: lisinopril 10 mg Tablet PO (08:50)
[2022-11-14] MEDS: FUROsemide 10 mg/mL SDV 4mL 40 MG IVP (08:51)
== END 2022-11-14 12:50 | disposition home health service (06) | DRG 292 ==
LOC: ER 20:50 → MEDSURG 20:57
PROVIDERS: Admitting Provider Family Medicine; Emergency Provider Emergency Medicine; PCP Internal Medicine; Visit Provider Internal Medicine
DX: I50.31 Acute diastolic (congestive) heart failure (principal); Z68.43 Body mass index [BMI] 50.0-59.9, adult; Z79.891 Long term (current) use of opiate analgesic; E66.01 Morbid (severe) obesity due to excess calories; R25.1 Tremor, unspecified; F33.42 Major depressive disorder, recurrent, in full remission; E03.9 Hypothyroidism, unspecified; Z88.2 Allergy status to sulfonamides; Z66 Do not resuscitate; I35.0 Nonrheumatic aortic (valve) stenosis; J06.9 Acute upper respiratory infection, unspecified
CPT/HCPCS: 36415; 36600; 51702; 71045; 80048; 80053; 82805; 83880; 84145; 84443; 84484; 85025; 86140; 87040; 87426; 87804; 93005; 93306; 94664; 94760; 96365; 96367; 96372; 96375; 97116; 97161; 97530; 99285; C9113; G0378; J0696; J1650; J1940; J2930; J3490

== ENCOUNTER 2022-11-25 17:51 | Inpatient (IN) | payer MEDICARE, MEDICAID, SELFPAY ==
[2022-11-25] VITALS (10 sets, daily range): BP systolic 127–208; BP diastolic 73–115; PULSE 66–109; RESP 16–30; TEMP 36.4; O2SAT 87–95
--- NOTE | 2022-11-25 18:20 | XR_ITS ---
WS: [id number] PORTABLE CHEST HISTORY: dyspnea COMPARISON: 11/12/2022 Lung volumes are significantly decreased by poor inspiration. Small to moderate LEFT pleural effusion has increased in size since 11/12/2022. Mild pulmonary congestion. Cardiac size: Moderate increase in size of the cardiac silhouette. Cardiac silhouette increase in siz e may be exacerbated by lordotic positioning. Mediastinum/Aorta: Mildly widened mediastinum. No osseous abnormality seen. XR/XR chest 1V portable [id number] IMPRESSION: 1. Small to moderate LEFT pleural effusion has increased in size since 022. 2. Very mild pulmonary congestion.
--- NOTE | 2022-11-25 18:24 | W.ED.SOB ---
HPI - SOB/Dyspnea General: Chief Complaint: Shortness of Breath/Dyspnea Stated Complaint: SOB, hot flashes, back spasms Time Seen by Provider: 11/25/22 18:13 Source: patient and family Mode of arrival: ambulatory Limitations: no limitations History of Present Illness: HPI Narrative: See nursing assessment. Patient with increased shortness of breath over the past 3 days. Patient states she is a nonproductive cough and increasing peripheral edema. She also has back spasms due to chronic back pain. She was just discharged from this hospital on November 14, 2022 for new onset CHF and pulmonary edema. Patient had echocardiogram at that time. Patient was sent home on home supplemental oxygen at 2 L/min. Patient arrived to the hospital at 3 L/min by nasal cannula with oxygen saturation 94%. Blood pressure in the ER room on forearm was 200/101. Patient denies any fever. She denies any chest or abdominal pain. She states she has been compliant with her Lasix 20 mg daily and potassium supplement 10 gold equivalents daily. Patient also on albuterol as needed and lisinopril 20 mg daily. Patient reports that she quit smoking about 50 years ago. Associated symptoms: Deny abdominal pain, chest pain, extremity pain, fever(s), nausea, palpitations or vomiting Review of Systems Const: Denies: fever(s) or chills Eyes: Denies: change in vision ENMT: Denies: throat pain Card: Denies: chest pain or palpitations Resp: Reports: dyspnea and non-productive cough; Denies: wheezing or stridor GI: Denies: abdominal pain, nausea or vomiting : Denies: flank pain Musc: Reports: back pain, extremity swelling and other (Back spasms.); Denies: neck pain, extremity pain or joint pain Skin/Breast: Denies: rash or pruritus Neuro: Denies: headache(s) or numbness in extremities Psych: Denies: anxiety [place]/Lymph: Denies: enlarged lymph nodes PFSH ED PFSH: Medical History Acute respiratory failure with hypoxia Hypoxia Major depressive disorder, recurrent, in full remission New onset of congestive heart failure Psychiatric care Shortness of breath Upper respiratory infection Surgical History History of right knee surgery Family History Other Hypertension Social History Smoking and tobacco status: never smoked Alcohol intake: never Physical Exam Const: COMMON NORMALS: no acute distress, patient oriented x3, no limitations and well nourished GENERAL APPEARANCE: cooperative HENMT: COMMON NORMALS: normocephalic and atraumatic HEAD & SCALP: normocephalic and atraumatic FACE & SINUS: normal facial exam Eye: COMMON NORMALS: EOMs intact bilaterally Neck/C-Spine: COMMON NORMALS: full ROM, no lymphadenopathy, supple and no meningeal signs GENERAL: Yes normal visual inspection Lymph: LYMPHATIC: no lymphadenopathy noted Chest: COMMONS NORMALS: normal inspection of the chest and normal palpation of entire chest wall CHEST: No Ecchymosis present and No rash Resp: COMMON NORMALS: normal respiratory effort and No retractions EFFORT & INSPECTION: No respiratory distress OTHER: Mild crackles in the bases bilaterally. No tachypnea. Cardio: COMMON NORMALS: regular rate, regular rhythm and Peripheral pulses 2+ throughout RATE: regular rate RHYTHM: regular rhythm PERIPHERAL PULSES: Peripheral pulses 2+ throughout OTHER: 2+ pitting edema lower extremities bilaterally. GI: COMMON NORMALS: Normal to inspection, nondistended, normoactive bowel sounds present and non-tender OTHER: Morbid obesity : COMMON NORMALS: Yes no CVA tenderness BLADDER/KIDNEY EXAM: Yes no CVA tenderness Back/Pelvis: COMMON NORMALS: no CVA tenderness Extremity: COMMON NORMALS: full ROM and capillary refill normal Neuro: COMMON NORMALS: patient oriented x3, CN's II-XII intact bilaterally, no focal motor deficits and no sensory deficits noted MENINGEAL SIGNS: Yes no meningeal signs Psych: COMMON NORMALS: mental status grossly normal and Normal thought process present THOUGHT PROCESS: Normal thought process present Skin: COMMON NORMALS: no rashes or lesions noted and no wounds GENERAL SKIN EXAM: no rashes or lesions noted Course Vital Signs: Vital signs: Vital Signs Temperature 97.5 F L 11/25/22 18:06 Pulse Rate 82 11/25/22 20:39 Respiratory Rate 20 H 11/25/22 20:39 Blood Pressure 166/76 11/25/22 20:39 Pulse Oximetry 94 11/25/22 20:39 Oxygen Delivery Me thod 11/25/22 20:39 Oxygen Flow Rate 3 11/25/22 20:39 MDM - SOB/Dyspnea Medical Decision Making Likely CHF exacerbation. Essential hypertension with hypertensive urgency. 1952: Patient feeling better. Blood pressure 167/85 heart rate 84 oxygen saturation 94% on 3 L by nasal cannula. I discussed case with hospitalist Dr. Troy. Admit to cardiac stepdown unit. He will see the patient in the emergency room. Lab Data 11/25/22 18:51 11/25/22 18:51 Labs/Radiology: Radiology Impressions Chest X-Ray 11/25/22 18:20 IMPRESSION: 1. Small to moderate LEFT pleural effusion has increased in size since 11/12/2022. 2. Very mild pulmonary congestion. Laboratory Results WBC 8.7 10^3/uL (4.0-10.0) 11/25/22 18:51 RBC 3.97 10^6/uL (4.1-5.3) L 11/25/22 18:51 Hgb 11.9 g/dL (11.5-15.3) 11/25/22 18:51 Hct 38.1 % (37.0-47.0) 11/25/22 18:51 MCV 96.0 fl (81-99) 11/25/22 18:51 MCH 30.0 pg (28.0-34.0) 11/25/22 18:51 MCHC 31.2 g/dL (30.0-36.0) 11/25/22 18:51 RDW 12.4 % (12.1-15.1) 11/25/22 18:51 Plt Count 219 10^3/cmm (130-400) 11/25/22 18:51 MPV 10.9 fL (7.4-10.4) H 11/25/22 18:51 Neut % (Auto) 82.7 % 11/25/22 18:51 Lymph % (Auto) 9.2 % 11/25/22 18:51 [place] % (Auto) 6.9 % 11/25/22 18:51 Eos % (Auto) 0.7 % 11/25/22 18:51 Baso % (Auto) 0.3 % 11/25/22 18:51 Neut # (Auto) 7.18 10^3/uL (1.8-7.7) 11/25/22 18:51 Lymph # (Auto) 0.8 10^3/uL (0.8-4.8) 11/25/22 18:51 [place] # (Auto) 0.6 10^3/uL (0.2-0.9) 11/25/22 18:51 Eos # (Auto) 0.1 10^3/uL (0.0-0.8) 11/25/22 18:51 Baso # (Auto) 0.0 10^3/uL (0.0-0.1) 11/25/22 18:51 Nucleated RBC % (auto) 0 % 11/25/22 18: Nucleated RBCs # 0.0 /100WBC 11/25/22 18:51 Sodium 135 mmol/L (136-145) L 11/25/22 18:51 Potassium 4.0 mmol/L (3.5-5.1) 11/25/22 18:51 Chloride 96 mmol/L (98-107) L 11/25/22 18:51 Carbon Dioxide 28 mmol/L (22-29) 11/25/22 18:51 Anion Gap 15.0 (5-19) 11/25/22 18:51 BUN 22 mg/dL (8-23) 11/25/22 18:51 Creatinine 0.9 mg/dL (0.5-0.9) 11/25/22 18:51 GFR Calculation Not Reportable 11/25/22 18:51 Glucose 164 mg/dL (65-115) H 11/25/22 18:51 Calculated Osmolality 287 mOsm/kg (285-295) 11/25/22 18:51 Lactic Acid 1.3 mmol/L (0.5-2.2) 11/25/22 18:51 Calcium 9.4 mg/dL (8.5-10.5) 11/25/22 18:51 Troponin T Baseline 44 ng/L (0-10) H 11/25/22 18:51 NT-Pro-B Natriuret Pep 1886 pg/mL (0-450) H 11/25/22 18:51 Influenza Type A Ag negative (Negative) 11/25/22 18:26 Influenza Type B Ag negative (Negative) 11/25/22 18:26 SARS-CoV-2 Ag (Rapid) Negative (Negative) 11/25/22 18:26 Imaging Data CXR: My impression: Moderate left pleural effusion and mild right pleural effusion all increased from last chest x-ray 2 weeks ago. Mild pulm edema EKG Data EKG 1: I personally reviewed and interpreted this EKG as follows: EKG Interpretation Date: 11/25/22 EKG interpretation time: 18:43 Prior EKG tracings: available for review (Unchanged from previous EKG) Interpretation: Impression normal sinus rhythm with occasional PACs. Left axis. LVH. Nonspecific ST-T changes. Normal T waves, normal P waves, normal VT interval, normal QT interval. EKG 2: I personally reviewed and interpreted this EKG as follows: EKG Interpretation Date: 11/25/22 EKG interpretation time: 20:41 Prior EKG tracings: available for review Interpretation: Impression normal sinus rhythm with occasional PACs. Left axis. LVH. Normal ST segment. Normal T waves, normal P waves, normal VT interval, normal QT interval. No change from previous EKG. Discharge Plan Discharge Patient Disposition: Admitted As Inpatient Admit Provider: Pastor Troy Clinical Impression: Pleural effusion, bilateral Congestive heart failure Qualifiers: Heart failure type: diastolic Heart failure chronicity: acute on chronic Qualified Code(s): I50.33 - Acute on chronic diastolic (congestive) heart failure Condition: Stable Coding Level of Care Code ED Dragline Operator Helper for Alvarog Fwd History Comprehensive Exam Comprehensive Medical Decision Making High Complexity
--- NOTE | 2022-11-25 18:38 | ECG_ITS ---
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 Measurements Intervals [place] Rate: 97 P: 0 TX: 0 QRS: -5 QRSD: 94 T: 3 QT: 341 QTc: 435 Interpretive Statements SINUS RHYTHM WITH SINUS ARRHYTHMIA MODERATE VOLTAGE CRITERIA FOR LVH, CONSIDER NORMAL VARIANT POSSIBLE ANTERIOR MYOCARDIAL INFARCTION , PROBABLY OLD Compared to ECG 11/13/2022 04:05:32 Myocardial infarct finding now present T-wave abnormality no longer present Electronically Signed On 11-26-2022 7:45:19 COLLATERAL SPECIALIST by Manju Macias M.D. [id number]
[2022-11-25] MEDS: FUROsemide 10 mg/mL SDV 4mL 40 MG IVP (18:50)
[2022-11-25 18:58] LABS: Basophils % 0.3 %; Eosinophils # 0.1 10^3/uL (0.0-0.8); Eosinophils % 0.7 %; Hematocrit 38.1 % (37.0-47.0); Hemoglobin 11.9 g/dL (11.5-15.3); Lymphocytes # 0.8 10^3/uL (0.8-4.8); Lymphocytes % 9.2 %; Mean Corpuscular HGB Conc 31.2 g/dL (30.0-36.0); Mean Platelet Volume 10.9 fL (7.4-10.4); Monocytes # 0.6 10^3/uL (0.2-0.9); Monocytes % 6.9 %; Neutrophils # 7.18 10^3/uL (1.8-7.7); Neutrophils % 82.7 %; Nucleated Red Blood Cells % 0 %; Platelet Count 219 10^3/cmm (130-400); Red Blood Count 3.97 10^6/uL (4.1-5.3); Red Cell Distribution Width 12.4 % (12.1-15.1); White Blood Count 8.7 10^3/uL (4.0-10.0)
[2022-11-25] MEDS: acetaminophen 500 mg Tablet 1000 MG PO (19:07)
[2022-11-25 19:10] LABS: Influenza A by IFA negative (Negative); Influenza B by IFA negative (Negative)
[2022-11-25 19:11] LABS: SARS Covid-2 Antigen Negative (Negative)
[2022-11-25 19:17] LABS: Lactic Sepsis W/Reflex 1.3 mmol/L (0.5-2.2)
[2022-11-25 19:35] LABS: Blood Urea Nitrogen 22 mg/dL (8-23); Calcium 9.4 mg/dL (8.5-10.5); Carbon Dioxide 28 mmol/L (22-29); Chloride 96 mmol/L (98-107); Glucose 164 mg/dL (65-115); NT Pro B Type Natriuretic Pept 1886 pg/mL (0-450); Osmolality Calculated 287 mOsm/kg (285-295); Sodium 135 mmol/L (136-145)
[2022-11-25 19:48] LABS: Troponin(5th) Baseline 44 ng/L (0-10)
--- NOTE | 2022-11-25 20:37 | ECG_ITS ---
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 Measurements Intervals [place] Rate: 89 P: 21 TN: 153 QRS: -4 QRSD: 98 T: 3 QT: 367 QTc: 449 Interpretive Statements SINUS RHYTHM WITH OCCASIONAL SUPRAVENTRICULAR PREMATURE COMPLEXES VOLTAGE CRITERIA FOR LVH [MEETS CRITERIA IN ONE OF: R(aVL), S(V1), R(V5), R(V5/V6)+S(V1)] NONSPECIFIC T-WAVE ABNORMALITY Compared to ECG 11/25/2022 18:38:30 T-wave abnormality now present Atrial fibrillation no longer present Myocardial infarct finding no longer present Electronically Signed On 11-26-2022 7:45:52 SUPERVISOR PAINT by Manju Macias M.D. [id number]
--- NOTE | 2022-11-25 20:50 | P.HP_ITS ---
Providers/Chief Complaint Admitting Physician: Pastor Troy MD Chief Complaint: SOB, hot flashes, back spasms History of Present Illness Shellie Odell is a 82 year old female with a past medical history of morbid obesity, history of tremor, history of depression, hypothyroidism, hyperlipidemia, mild LVH, diastolic CHF, recently discharged from [facility] for diastolic CHF exacerbation, discharged on 2 L oxygen who presents [facility] for increased shortness of breath, increased shortness of breath with exertion, orthopnea, paroxysmal nocturnal dyspnea. She also reports acute on chronic cough, no fevers, chills, no sick contacts, no recent travel, she was here in the hospital, no history of COVID, no history of flu. She tells her that she is developed increased bilateral extremity edema but it is better today, her home health care nurse today listen to her lungs and felt that she had crackles in her lungs, Review of Systems Const: Denies: fever(s) Eyes: Denies: change in vision Card: Reports: edema Resp: Reports: dyspnea and non-productive cough GI: Denies: abdominal pain : Denies: difficulty voiding Musc: Denies: back pain Skin/Breast: Denies: rash Neuro: Denies: headache(s) Endo: Denies: polyuria Medications/Allergies Home Medications Medication Instructions Recorded Confirmed Last Taken Type atenolol 50 mg tablet 50 mg PO DAILY 01/10/20 11/13/22 Unknown History fexofenadine 60 mg tablet (Omaira 60 mg PO DAILY 01/10/20 11/13/22 Unknown History Allergy) primidone 50 mg tablet (Mysoline) 300 mg PO BEDTIME 01/10/20 11/13/22 Unknown History tramadol 50 mg tablet 50 mg PO QID PRN Pain 01/10/20 11/13/22 Unknown History fluvoxamine 100 mg tablet See Rx Instructions .Route 08/24/22 11/13/22 Unknown Rx .COMPLEX #60 tabs trazodone 150 mg tablet See Rx Instructions .Route 08/24/22 11/13/22 Unknown Rx .COMPLEX #60 tabs fluvoxamine 50 mg tablet 50 mg PO BEDTIME 11/13/22 11/25/22 Unknown History levothyroxine 125 mcg tablet 125 mcg PO DAILY 11/13/22 11/13/22 Unknown History montelukast 10 mg tablet 10 mg PO DAILY 11/13/22 11/13/22 Unknown History albuterol sulfate 90 mcg/actuation 2 inh inhalation Q8H PRN shortness 11/14/22 Unknown Rx aerosol inhaler of breath or wheezing #8.5 grams furosemide 20 mg tablet (Lasix) 20 mg PO DAILY #60 tabs 11/14/22 Unknown Rx lisinopril 10 mg tablet 20 mg PO DAILY #60 tabs 11/14/22 Unknown Rx potassium chloride 10 mEq 10 meq PO DAILY #60 tabs 11/14/22 Unknown Rx tablet,extended release Allergies Allergy/AdvReac Type Severity Reaction Status Date / Time clarithromycin [From Biaxin] Allergy Unknown Unknown Verified 11/12/22 17:05 levofloxacin [From Levaquin] Allergy Unknown unk Verified 11/12/22 17:05 Sulfa (Sulfonamide Allergy Unknown unk Verified 11/12/22 17:05 Antibiotics) codeine AdvReac ADR-Nausea Verified 11/12/22 22:50 PFSH Acute PFSH: Medical History Acute respiratory failure with hypoxia Hypoxia Major depressive disorder, recurrent, in full remission New onset of congestive heart failure Psychiatric care Shortness of breath Upper respiratory infection Surgical History History of right knee surgery Family History Other Hypertension Social History Smoking and tobacco status: never smoked Alcohol intake: never Vitals/I&O/Wt Last Vital Signs Temp 97.5 F L 11/25/22 18:06 Pulse 82 11/25/22 20:39 Resp 20 H 11/25/22 20:39 BP 166/76 11/25/22 20:39 Pulse Ox 94 11/25/22 20:39 O2 Del Method 11/25/22 20:39 O2 Flow Rate 3 11/25/22 20:39 Weight last 48 hrs Weight 107.501 kg Physical Exam Const: COMMON NORMALS: no acute distress and patient oriented x3 HENMT: COMMON NORMALS: normocephalic HEAD & SCALP: normocephalic Eye: COMMON NORMALS: Equal, round and reactive pupils present and EOMs intact bilaterally Neck/C-Spine: COMMON NORMALS: no JVD Lymph: LYMPHATIC: no lymphadenopathy noted Resp: COMMON NORMALS: normal respiratory effort, No retractions and No use of accessory muscles AUSCULTATION: crackles Cardio: COMMON NORMALS: no JVD, regular rate, regular rhythm, S1 normal heart sound present and S2 normal heart sound present RATE: regular rate RHYTHM: regular rhythm HEART SOUNDS: S1 normal heart sound present and S2 normal heart sound present GI: COMMON NORMALS: Normal to inspection, nondistended, normoactive bowel sounds present, Soft to palpation and non-tender OTHER: Morbidly obese abdomen Extremity: NARRATIVE EXTREMITY EXAM: 1+ pitting edema Neuro: COMMON NORMALS: patient oriented x3, CN's II-XII intact bilaterally, moves all extremities and no focal motor deficits Psych: COMMON NORMALS: mental status grossly normal Data 11/25/22 18:51 11/25/22 18:51 Micro: Microbiology 11/25/22 20:15 Blood Culture - Preliminary Blood SPECIMEN COLLECTED 11/25/22 18:51 Blood Culture - Preliminary Blood SPECIMEN COLLECTED A&P Assessment and plan (1) Congestive heart failure: Qualifiers: Heart failure chronicity: acute on chronic Heart failure type: diastolic Qualified Code(s): I50.33 - Acute on chronic diastolic (congestive) heart failure (2) Pleural effusion, bilateral: (3) Morbid obesity: (4) Diastolic CHF: (5) Mild concentric left ventricular hypertrophy (LVH): (6) Goals of care, counseling/discussion: Plan Diastolic CHF exacerbation -Place Macario catheter -Fluid restrictions 1000 cc -Lasix 40 IV twice daily -Monitor potassium, monitor creatinine, monitor magnesium -Telemetry monitoring -Serial EKGs consulted once, telemetry monitoring -DNR/DNI, confirmed goals of care -Lovenox for DVT prophylaxis Hypothyroidism, continue levothyroxine Hypertension continue lisinopril, atenolol Depression, we need to confirm her dose of fluvoxamine with the pharmacy tomorrow, there is 2 different dose is once is 100 twice daily the other says 150 mg daily Attestations Medical Necessity Statement*: Patient requires hospitalization, inpatient, greater than 2 midnights, for CHF exacerbation Coding Level of Care Code Acute Code for [facility] Diagnoses Congestive heart failure I50.33 Heart failure chronicity: acute on chronic Heart failure type: diastolic Pleural effusion, bilateral J90 Morbid obesity E66.01 Diastolic CHF I50.30 Mild concentric left ventricular hypertrophy (LVH) I51.7 Goals of care, counseling/discussion Z71.89
[2022-11-25 21:06] LABS: Troponin 5 2HR 65.52 ng/L (0-10)
[2022-11-25 21:29] LABS: Troponin 5 2HR Delta 21.52 ABS# (0-10)
[2022-11-25] MEDS: morphine 4 mg/mL SDV 1 mL 1 MG IVP (21:37)
[2022-11-25] MEDS: primidone 50 mg Tablet 300 MG PO (21:38)
[2022-11-25] MEDS: trazodone 150 mg Tablet 300 MG PO (21:39)
[2022-11-25] MEDS: enoxaparin 40 mg/0.4 mL Syringe SUBCUT (21:44)
--- NOTE | 2022-11-25 21:54 | PC.NURSE ---
Patient received from ED via stretcher. Patient able to transfer x2 assist to bed. Patient c/o severe back pain with increased spasms. Reports back pain is chronic and spasms are new for her. Patient requesting to have Rico catheter placed due to plan for diuresing. Informed Dr Troy of this request and muscle spasms. Received telephone orders to place rico catheter and to give morphine 1mg IVP every 4 hours as needed for severe pain. Instructed patient on uses and side effects of morphine. Patient and daughter verbalized complete understanding. Will continue to monitor.
[2022-11-26] VITALS (11 sets, daily range): BP systolic 157–175; BP diastolic 88–105; PULSE 80–98; RESP 18–27; TEMP 36.2–36.9; O2SAT 93–95
[2022-11-26 01:22] LABS: Basophils % 0.4 %; Eosinophils # 0.1 10^3/uL (0.0-0.8); Eosinophils % 1.4 %; Hemoglobin 10.4 g/dL (11.5-15.3); Lymphocytes # 1.1 10^3/uL (0.8-4.8); Lymphocytes % 12.9 %; Mean Corpuscular HGB Conc 31.5 g/dL (30.0-36.0); Mean Corpuscular Hemoglobin 29.9 pg (28.0-34.0); Mean Corpuscular Volume 94.8 fl (81-99); Mean Platelet Volume 10.9 fL (7.4-10.4); Monocytes # 0.7 10^3/uL (0.2-0.9); Monocytes % 7.7 %; Neutrophils # 6.58 10^3/uL (1.8-7.7); Neutrophils % 77.5 %; Nucleated Red Blood Cells % 0 %; Platelet Count 217 10^3/cmm (130-400); Red Blood Count 3.48 10^6/uL (4.1-5.3); Red Cell Distribution Width 12.4 % (12.1-15.1); White Blood Count 8.5 10^3/uL (4.0-10.0)
[2022-11-26] MEDS: ipratropium-albuterol 3 mL Neb INHALATION (01:40)
[2022-11-26 01:56] LABS: NT Pro B Type Natriuretic Pept 1958 pg/mL (0-450); Procalcitonin 0.72 ng/mL (0-0.5)
[2022-11-26 01:58] LABS: Troponin 5 6HR 57.19 ng/L (0-10)
[2022-11-26 02:01] LABS: Troponin 5 6HR Delta 13.19 ng/L (0-12)
[2022-11-26 02:07] LABS: Blood Urea Nitrogen 22 mg/dL (8-23); C Reactive Protein 86.7 mg/L (0.0-4.9); Calcium 8.8 mg/dL (8.5-10.5); Carbon Dioxide 30 mmol/L (22-29); Chloride 94 mmol/L (98-107); Glucose 215 mg/dL (65-115); Magnesium 1.6 mg/dL (1.7-2.3); Osmolality Calculated 290 mOsm/kg (285-295); Sodium 135 mmol/L (136-145)
--- NOTE | 2022-11-26 05:05 | USCV_ITS ---
Shellie Odell Age: 82 Gender: F : 1940 Exam Date: 11/26/2022 12:35 Ordering Phys: Pastor Troy MD Technologist: [email or web address] [place] [facility] [place]: BP: / HR: Rhythm: Sinus Technical Quality: Very poor MEASUREMENTS (Male / Female) Normal Values FINDINGS Left Ventricle Examination is technically very poor for interpretation. The apical view is the only view available. The ventricle appears to be normal in size. There is probably normal left ventricular function at least in the apical view. Wall motion disturbances cannot be determined. Doppler examination was not performed. Right Ventricle Right ventricle not well visualized. Right Atrium Right atrium not well visualized. Left Atrium Left atrium not well visualized. Mitral Valve Mitral valve not well visualized. Aortic Valve Aortic valve not well visualized. Tricuspid Valve Tricuspid valve not well visualized. Pulmonic Valve Pulmonic valve not well visualized. Pericardium Normal pericardium without effusion. Aorta Aorta not well visualized. IVC Inferior vena cava not visualized. CONCLUSIONS Examination is technically very poor for interpretation. The apical view is the only view available. The ventricle appears to be normal in size. There is probably normal left ventricular function at least in the apical view. Wall motion disturbances cannot be determined. Doppler examination was not performed. The previous study was done only 13 days ago. There has not been any change. Dr. Yovanny Randall MD (Electronically Signed) Final Date: 26 November 2022 14:24 S
[2022-11-26] MEDS: FUROsemide 10 mg/mL SDV 4mL 40 MG IVP ×2 (05:35→17:56)
[2022-11-26] MEDS: potassium chloride ER 10 mEq Tablet PO (09:33)
[2022-11-26] MEDS: lisinopril 20 mg Tablet PO (09:33)
[2022-11-26] MEDS: atorvastatin 40 mg Tablet PO (09:33)
[2022-11-26] MEDS: aspirin 81 mg EC Tablet PO (09:33)
[2022-11-26] MEDS: montelukast sodium 10 mg Tablet PO (09:34)
[2022-11-26] MEDS: levothyroxine 125 mcg Tablet PO (09:34)
[2022-11-26] MEDS: carvedilol 3.125 mg Tablet PO ×2 (09:34→17:56)
--- NOTE | 2022-11-26 10:13 | P.PN_ITS ---
Subjective Subjective: This morning patient is sitting in a recliner currently on 3 L Clinical signs of fluid overload Calm and cooperative No chest pain Patient stating that she was getting short of breath after taking a few steps in her small apartment She lives in 1 bedroom apartment Vitals/I&O/Wt Last Vital Signs Temp 97.1 F L 11/26/22 08:37 Pulse 92 11/26/22 08:37 Resp 18 11/26/22 08:37 BP 157/105 11/26/22 08:37 Pulse Ox 93 11/26/22 08:37 O2 Del Method 11/26/22 08:26 O2 Flow Rate 3 11/26/22 08:26 11/25/22 11/26/22 11/26/22 22:59 06:59 14:59 Intake Total 240 / 240 360 / 360 Output Total 450 / 450 Balance 240 / 240 -450 / -210 360 / 360 Weight last 48 hrs Weight 107.32 kg Weight 107.501 kg Physical Exam Narrative: Positive signs of fluid overload 2+ edema of legs No audible stridor or wheezing however on 3 L oxygen Looks comfortable No active chest pain S1, S2 Hypertensive Abdomen soft Urinary Catheter Management: Macario: Cath Placed During This Visit: yes Reason for Continuing Indwelling Catheter: Accurate Measurement of Urinary Output in Critically Ill Patients Urinary Catheter Date of Insertion: 11/25/22 Urinary Catheter Time of Insertion: 21:20 Data 11/26/22 01:05 11/26/22 01:05 Micro: Microbiology 11/25/22 20:15 Blood Culture - Preliminary Blood SPECIMEN COLLECTED 11/25/22 18:51 Blood Culture - Preliminary Blood SPECIMEN COLLECTED A&P Assessment and plan (1) Mild concentric left ventricular hypertrophy (LVH): (2) Diastolic CHF: (3) Morbid obesity: (4) Congestive heart failure: Qualifiers: Heart failure chronicity: acute on chronic Heart failure type: diastolic Qualified Code(s): I50.33 - Acute on chronic diastolic (congestive) heart failure (5) Goals of care, counseling/discussion: Plan Diastolic CHF exacerbation Acute on chronic hypoxia at home uses 2 L currently on 3 L without respiratory distress Patient watch her sodium and fluid intake Sleep apnea? Agree with IV aggressive diuresis Patient is DNI/DNI Currently on cardiac diet Looks comfortable today at the time of my evaluation Optimize antihypertensive regimen she is hypertensive DVT prophylaxis on board Increase the dose of lisinopril to 40 mg daily My concern is also related to using appropriate size of cuff for her blood pressure measurement Attestations 2 Medical Necessity Statement*: Continues csu monitoring Time Spent in Patient Care: 30 Coding Level of Care Code Acute Code for Chg Fwd Diagnoses Mild concentric left ventricular hypertrophy (LVH) I51.7 Diastolic CHF I50.30 Morbid obesity E66.01 Congestive heart failure I50.33 Heart failure chronicity: acute on chronic Heart failure type: diastolic Goals of care, counseling/discussion Z71.89
[2022-11-26] MEDS: TRAMadol 50 mg Tablet PO ×2 (10:45→18:30)
[2022-11-26] MEDS: primidone 50 mg Tablet 300 MG PO (21:19)
[2022-11-26] MEDS: trazodone 150 mg Tablet PO (21:20)
[2022-11-26] MEDS: enoxaparin 40 mg/0.4 mL Syringe SUBCUT (21:20)
[2022-11-26] MEDS: morphine 4 mg/mL SDV 1 mL 1 MG IVP (21:27)
[2022-11-27] VITALS (12 sets, daily range): BP systolic 110–173; BP diastolic 76–98; PULSE 83–99; RESP 16–27; TEMP 36.7–36.8; O2SAT 93–98
[2022-11-27] MEDS: acetaminophen 325 mg Tablet 650 MG PO (01:53)
[2022-11-27] MEDS: TRAMadol 50 mg Tablet PO (01:54)
[2022-11-27 04:11] LABS: Anion Gap 13.9 (5-19); Blood Urea Nitrogen 24 mg/dL (8-23); Calcium 8.6 mg/dL (8.5-10.5); Carbon Dioxide 30 mmol/L (22-29); Chloride 91 mmol/L (98-107); Glucose 142 mg/dL (65-115); Osmolality Calculated 278 mOsm/kg (285-295); Potassium 3.9 mmol/L (3.5-5.1); Sodium 131 mmol/L (136-145)
[2022-11-27] MEDS: FUROsemide 10 mg/mL SDV 4mL 40 MG IVP ×2 (05:48→18:27)
[2022-11-27] MEDS: ipratropium-albuterol 3 mL Neb INHALATION (09:34)
--- NOTE | 2022-11-27 10:58 | P.PN_ITS ---
Subjective Subjective: Patient is still endorsing fatigue lethargy requiring 3 L of oxygen Blood pressure is better today No active chest pain Working with PT Vitals/I&O/Wt Last Vital Signs Temp 98.2 F 11/27/22 07:32 Pulse 92 11/27/22 09:36 Resp 18 11/27/22 09:36 BP 134/87 11/27/22 07:32 Pulse Ox 98 11/27/22 09:36 O2 Del Method 11/27/22 09:36 O2 Flow Rate 3 11/27/22 09:36 11/26/22 11/27/22 11/27/22 22:59 06:59 14:59 Intake Total 600 / 1160 120 / 1280 360 / 360 Output Total 920 / 920 Balance 600 / 1160 -800 / 360 360 / 360 Weight last 48 hrs Weight 107.32 kg Weight 107.501 kg Physical Exam Narrative: Patient is still fluid overloaded Bilateral breath sounds mild crackles at base of the lungs Clinical signs of fluid overload Work with PT Macario catheter in place for accurate urine output Pleasant and cooperative Hemodynamic stable Currently on 3 L Urinary Catheter Management: Macario: Cath Placed During This Visit: yes Reason for Continuing Indwelling Catheter: Accurate Measurement of Urinary Output in Critically Ill Patients Urinary Catheter Date of Insertion: 11/25/22 Urinary Catheter Time of Insertion: 21:20 Data 11/26/22 01:05 11/27/22 03:16 Micro: Microbiology 11/25/22 20:15 Blood Culture - Preliminary Blood NEGATIVE TO DATE 11/25/22 18:51 Blood Culture - Preliminary Blood NEGATIVE TO DATE A&P Assessment and plan (1) Goals of care, counseling/discussion: (2) Diastolic CHF: (3) Morbid obesity: (4) Congestive heart failure: Qualifiers: Heart failure chronicity: acute on chronic Heart failure type: diastolic Qualified Code(s): I50.33 - Acute on chronic diastolic (congestive) heart failure (5) Pleural effusion, bilateral: (6) Loud snoring: Plan 82-year-old female who was readmitted to the hospital for management of diastolic CHF exacerbation, that she lives in an apartment, requires 2 L at baseline, this time with diastolic CHF exacerbation she requiring 3 L of oxygen, very lethargic and fatigued, she might need rehab if recommended by the PT, she gets short of breath after walking only 10-15 steps in her 1 bedroom apartment, echo revealed diastolic dysfunction, she also has tricuspid regurgitation. Patient is stating she eats healthy diet, she has remained hypertensive throu ghout hospitalization which could be the cause of exacerbation Diastolic CHF exacerbation Likely related to uncontrolled hypertension Optimize antihypertensive regimen Echo did not show significant reduction in EF but limited view Clinical signs of fluid overload present Continue diuresis Monitor for electrolyte imbalance Work with PT Currently on 3 L of oxygen Acute on chronic hypoxia Macario catheter has been requested for accurate urine output Patient is complaining of muscle cramps, will add low-dose muscle relaxant DNR/DNI Cardiac diet Replenish hypomagnesemia with preoperative magnesium Continue with thyroxine For uncontrolled hypertension: Increase lisinopril to 40 mg daily, increase C oreg dose, add hydralazine 25 mg twice daily Attestations Medical Necessity Statement*: Discharge likely on Monday or Monday depending on PT evaluation Time Spent in Patient Care: 30 Coding Level of Care Code Acute Code for Chg Fwd Diagnoses Goals of care, counseling/discussion Z71.89 Diastolic CHF I50.30 Morbid obesity E66.01 Congestive heart failure I50.33 Heart failure chronicity: acute on chronic Heart failure type: diastolic Pleural effusion, bilateral J90 Loud snoring R06.83
[2022-11-27] MEDS: aspirin 81 mg EC Tablet PO (11:10)
[2022-11-27] MEDS: atorvastatin 40 mg Tablet PO (11:10)
[2022-11-27] MEDS: levothyroxine 125 mcg Tablet PO (11:11)
[2022-11-27] MEDS: potassium chloride ER 10 mEq Tablet PO (11:11)
[2022-11-27] MEDS: montelukast sodium 10 mg Tablet PO (11:11)
[2022-11-27] MEDS: hyDRALAzine 25 mg Tablet PO (18:27)
[2022-11-27] MEDS: carvedilol 6.25 mg Tablet PO (18:27)
[2022-11-27] MEDS: magnesium oxide 400 mg tablet PO (18:27)
[2022-11-27] MEDS: enoxaparin 40 mg/0.4 mL Syringe SUBCUT (21:47)
[2022-11-27] MEDS: primidone 50 mg Tablet 300 MG PO (21:47)
[2022-11-27] MEDS: trazodone 150 mg Tablet PO (21:47)
[2022-11-27] MEDS: morphine 4 mg/mL SDV 1 mL 1 MG IVP (22:11)
[2022-11-27] MEDS: loratadine 10 mg Tablet PO (22:12)
[2022-11-28] VITALS (16 sets, daily range): BP systolic 109–154; BP diastolic 68–126; PULSE 87–118; RESP 16–32; TEMP 36.4–36.8; O2SAT 90–97
--- NOTE | 2022-11-28 | XR_ITS ---
WS: [id number] CHEST XRAY TECHNIQUE: Portable chest. CLINICAL INFORMATION: POST THORA COMPARISON: November 28, 2022 11:50 AM FINDINGS: Heart: Cardiomegaly. Lungs: Post LEFT thoracentesis. Fluid has significantly improved with only a small residual pleural e ffusion. LEFT basilar atelectasis. RIGHT lung is well aerated.. No pneumothorax. Bones: Thoracolumbar curve. XR/XR chest 1V portable [id number] IMPRESSION: 1. Improved LEFT pleural effusion post thoracentesis. No pneumothorax. 2. Prominent LEFT hilum. This can be followed up with chest CT.
[2022-11-28 01:50] LABS: Blood Urea Nitrogen 25 mg/dL (8-23); Calcium 8.6 mg/dL (8.5-10.5); Carbon Dioxide 32 mmol/L (22-29); Chloride 87 mmol/L (98-107); Glucose 211 mg/dL (65-115); Magnesium 1.7 mg/dL (1.7-2.3); Osmolality Calculated 279 mOsm/kg (285-295); Sodium 129 mmol/L (136-145)
[2022-11-28] MEDS: morphine 4 mg/mL SDV 1 mL 1 MG IVP (02:26)
[2022-11-28] MEDS: FUROsemide 10 mg/mL SDV 4mL 40 MG IVP ×3 (05:31→18:21)
--- NOTE | 2022-11-28 09:09 | PC.SOCIAL ---
IMM update IMM updated at bedside with patient. Copy of page 2 provided. Patient verbalized understanding. Copy in chart initialed, dated and timed.
[2022-11-28] MEDS: levothyroxine 125 mcg Tablet PO (09:25)
[2022-11-28] MEDS: potassium chloride ER 10 mEq Tablet PO (09:25)
[2022-11-28] MEDS: sennosides-docusate Tablet 1 TAB PO (09:25)
[2022-11-28] MEDS: atorvastatin 40 mg Tablet PO (09:25)
[2022-11-28] MEDS: carvedilol 6.25 mg Tablet PO ×2 (09:25→18:20)
[2022-11-28] MEDS: magnesium oxide 400 mg tablet PO ×2 (09:25→18:20)
[2022-11-28] MEDS: hyDRALAzine 25 mg Tablet PO ×2 (09:25→18:20)
[2022-11-28] MEDS: aspirin 81 mg EC Tablet PO (09:26)
[2022-11-28] MEDS: lisinopril 20 mg Tablet 40 MG PO (09:26)
[2022-11-28] MEDS: montelukast sodium 10 mg Tablet PO (09:26)
--- NOTE | 2022-11-28 10:33 | PC.CHAP ---
Pastoral Care Encounter/Spiritual Assessment Type of Contact [] Declined computer programmer chief visit [] Patient/Family/Request visit [] Outpatient visit [] Follow-up visit [] Physician referral [] Code/Alert [x] Routine visit [] Staff referral [] Actively dying [] Patient sleeping [] Family support [] [] Out of room [] Palliative care [] [] Receiving care in room [] Pre-surgical visit [] Trauma [] Long length of stay [] ICU visit [] Other: Relational/Emotional Strength [x] Patient feels connected with others/family/visitors/staff [] Distress [] Loneliness/isolation [] Abandonment Spirituality of Patient [x] Person of Aniya [] Attends Restorationist of their Aniya [x] Believes in Prayer [] Reads Bible or Quaker materials [] There are Spiritual issues to be addressed Eviction Specialist Interventions [x] Prayer [x] Active listening x[x] Non-anxious presence [x] Spiritual/emotional support [] Crisis/trauma care [] Spiritual counseling [] Bereavement support [] Provided bereavement packet [] Provided Bible/devotional materials [] Provided toy/stuffed animal, coloring book to patient or family member [] Provided Communion [] Anointing/[place] [] Salvation [x] Completed spiritual assessment [] Other: Impact on Illness or Injury [] Angry [] Fearful [] Anxious [] Often cries [] Exhaustion [] Unable to work [] Unable to attend samaritan [] Unable to walk/stand [] Unable to read [] Unable to drive [] Unable to eat/drink [] Unable to sleep [] Unable to be with family [] Patient intubated [] Other: Summary Time spent with patient 10 min
[2022-11-28] MEDS: TRAMadol 50 mg Tablet PO ×2 (11:04→21:09)
--- NOTE | 2022-11-28 11:26 | PM.PN ---
Subjective Subjective: Seen this morning. No acute events overnight. Patient's granddaughter is at bedside. She did work a little bit with physical therapy yesterday. She still endorses shortness of breath on exertion. Repeat echo has been completed which did not show any significant reduction in ejection fraction. No significant change since prior. Hypertensive this morning. Slightly tachycardic as well. On 3 L nasal cannula. 2 L at home. Granddaughter states patient was supposed to have a sleep study done as an outpatient however has not done so yet. Vitals/I&O/Wt Last Vital Signs Temp 98.2 F 11/28/22 07:21 Pulse 103 H 11/28/22 07:21 Resp 22 H 11/28/22 07:21 BP 148/126 11/28/22 07:21 Pulse Ox 94 11/28/22 07:21 O2 Del Method 11/28/22 07:21 O2 Flow Rate 3 11/28/22 04:00 11/27/22 11/28/22 11/28/22 22:59 06:59 14:59 Intake Total 360 / 960 360 / 360 Output Total 800 / 800 900 / 1700 Balance -440 / 160 -900 / -740 360 / 360 Physical Exam Narrative: General: Alert oriented x3, patient seen sitting up in bed. No conversational dyspnea present. No acute respiratory distress. Does state that she feels short of breath when she tries to exert herself, appears clinically fluid overloaded. HEENT: Normocephalic, atraumatic, EOMI, Cardio: Slightly tachycardic, normal S1-S2, unable to assess JVD due to body habitus. Respiratory: Crackles bilaterally at bases. GI: Abdomen soft, nontender, obese rounded abdomen bowel sounds + Extremities: Trace bilateral pitting edema lower extremities. Urinary Catheter Management: Macario: Cath Placed During This Visit: yes Reason for Continuing Indwelling Catheter: Acute Urinary Retention or Obstruction Urinary Catheter Date of Insertion: 11/25/22 Urinary Catheter Time of Insertion: 21:20 Data 11/26/22 01:05 11/28/22 01:05 A&P Assessment and plan (1) Mild concentric left ventricular hypertrophy (LVH): (2) Diastolic CHF: (3) Morbid obesity: (4) Congestive heart failure: Qualifiers: Heart failure chronicity: acute on chronic Heart failure type: diastolic Qualified Code(s): I50.33 - Acute on chronic diastolic (congestive) heart failure (5) Major depressive disorder, recurrent, in full remission: (6) Acute respiratory failure with hypoxia: Plan 82-year-old female who was readmitted to the hospital for management of diastolic CHF exacerbation, that she lives in an apartment, requires 2 L at baseline, this time with diastolic CHF exacerbation she requiring 3 L of oxygen, very lethargic and fatigued, she might need rehab if recommended by the PT, she gets short of breath after walking only 10-15 steps in her 1 bedroom apartment, echo revealed diastolic dysfunction, she also has tricuspid regurgitation.? Patient is stating she eats healthy diet, she has remained hypertensive throughout hospitalization which could be the cause of exacerbation #Diastolic CHF exacerbation #Acute on chronic hypo #Left ventricular hypertrophy #Morbid obesity #Depression #Obstructive sleep apnea must be ruled out as an outpatient. She has a sleep study. Likely related to uncontrolled hypertension Optimize antihypertensive regimen Echo did not show significant reduction in EF but limited view Clinical signs of fluid overload present Continue diuresis Monitor for electrolyte imbalance Work with PT Currently on 3 L of oxygen We will administer Lasix 40 IV additional dose today. Possibly use Lasix 40 3 times daily tomorrow as well. Will titrate dose based on urine output. Patient is negative 230 balance since admission. 1700 cc urine output overnight. Use BiPAP if needed. Check chest x-ray today. #Mild hyponatremia ? Sodium 129 ? Check urine sodium, serum osmolality ? Continue fluid restriction Cardiac diet Replenish hypomagnesemia with preoperative magnesium Continue with thyroxine For uncontrolled hypertension: Continue lisinopril to 40 mg daily, continue Coreg dose, increase hydralazine 25 mg TID DNR/DNI Attestations Medical Necessity Statement*: Patient will needevaluation with physical therapy and continued IV diuresis. and will need to be fully optimized on her medications before she is discharged. Coding Level of Care Code Acute Code for Chg Fwd Diagnoses Mild concentric left ventricular hypertrophy (LVH) I51.7 Diastolic CHF I50.30 Morbid obesity E66.01 Congestive heart failure I50.33 Heart failure chronicity: acute on chronic Heart failure type: diastolic Major depressive disorder, recurrent, in full remission F33.42 Acute respiratory failure with hypoxia J96.01
[2022-11-28] MEDS: ipratropium-albuterol 3 mL Neb INHALATION ×2 (11:28→16:45)
--- NOTE | 2022-11-28 11:45 | XR_ITS ---
WS: [id number] CHEST XRAY TECHNIQUE: Portable chest. CLINICAL INFORMATION: chf COMPARISON: November 25, 2022 FINDINGS: Heart: Cardiomegaly. Lungs: Unchanged LEFT pleural effusion. RIGHT lung is well aerated. Bones: Osteopenia. Thoracic curve convex RIGHT. Hypertrophic changes thoracic spine. XR/XR chest 1V portable [id number] IMPRESSION: 1. Stable cardiomegaly. 2. Unchanged LEFT pleural effusion 3. RIGHT lung is well aerated.
--- NOTE | 2022-11-28 12:12 | US_ITS ---
WS: [id number] ULTRASOUND-GUIDED THORACENTESIS CLINICAL INFORMATION: left pleural effusion COMPARISON: None. PROCEDURE: Informed consent: The risks, benefits, and alternatives of the procedure were discussed with the aracelis ent. Verbal and written consent was obtained. Timeout: A timeout was performed to confirm the correct patient, procedure, and site. Site: LEFT chest Preparation: A suitable skin site was identified. The patient was prepped and draped in usual sterile fashion. Lidocaine 1% was used for local anesthesia. Catheter: 4 Amharic One-Step catheter. Fluid Volume: 1000 ml Color: Bloody Discarded safely. Sent to the laboratory for analysis. Complications: Portable chest is pending. / thoracentesis [id number] IMPRESSION: Uncomplicated ultrasound-guided LEFT thoracentesis with removal of 1000 cc.
[2022-11-28 14:16] LABS: INR 1.15 (0.8-1.2)
[2022-11-28 17:07] LABS: Cyto Order Verification No Order
[2022-11-28 17:17] LABS: Mononuclear %, Pleural Fluid 82 %; Mononuclear, Pleural Fluid # 0.947 10^3/uL; Polynuclear Cells, Pleural # 0.211 10^3/uL; Polynuclear Cells, Pleural % 18 %
[2022-11-28 17:27] LABS: Appearance, Pleural Fluid BLOODY (CLEAR); Color, Pleural Fluid Red (Pale Yellow); Left Pleural Fluid Analysis Left Lung
[2022-11-28 17:50] LABS: LDH Pleural Fluid 280 U/L; PATH Referal YES; Pleural Fluid Albumin 2.4 g/dL; Pleural Fluid Triglycerides 48 mg/dL; Total Protein Pleural Fluid 3.8 g/dL
[2022-11-28] MEDS: nystatin powder 15 gm Btl 1 APPLIC TOPICAL (18:22)
[2022-11-28 20:11] LABS: Lactate Dehydrogenase 401 U/L (135-214); Total Protein 6.3 g/dL (6.6-8.7)
[2022-11-28] MEDS: enoxaparin 40 mg/0.4 mL Syringe SUBCUT (20:58)
[2022-11-28] MEDS: trazodone 150 mg Tablet PO (20:59)
[2022-11-28] MEDS: primidone 50 mg Tablet 300 MG PO (20:59)
[2022-11-29] VITALS (14 sets, daily range): BP systolic 106–157; BP diastolic 70–102; PULSE 84–102; RESP 17–26; TEMP 36.4–37.2; O2SAT 93–98
[2022-11-29] MEDS: FUROsemide 10 mg/mL SDV 4mL 40 MG IVP (05:27)
[2022-11-29 05:58] LABS: Basophils % 0.6 %; Eosinophils # 0.2 10^3/uL (0.0-0.8); Eosinophils % 2.2 %; Hematocrit 34.3 % (37.0-47.0); Hemoglobin 10.6 g/dL (11.5-15.3); Lymphocytes % 14.5 %; Mean Corpuscular HGB Conc 30.9 g/dL (30.0-36.0); Mean Corpuscular Hemoglobin 29.4 pg (28.0-34.0); Mean Corpuscular Volume 95.3 fl (81-99); Mean Platelet Volume 11.5 fL (7.4-10.4); Monocytes # 0.6 10^3/uL (0.2-0.9); Monocytes % 8.8 %; Neutrophils # 4.92 10^3/uL (1.8-7.7); Neutrophils % 73.6 %; Nucleated Red Blood Cells % 0 %; Platelet Count 212 10^3/cmm (130-400); Red Cell Distribution Width 12.5 % (12.1-15.1); White Blood Count 6.7 10^3/uL (4.0-10.0)
[2022-11-29 06:22] LABS: Anion Gap 12.3 (5-19); Blood Urea Nitrogen 29 mg/dL (8-23); Calcium 9.3 mg/dL (8.5-10.5); Carbon Dioxide 33 mmol/L (22-29); Chloride 93 mmol/L (98-107); Glucose 143 mg/dL (65-115); Magnesium 1.8 mg/dL (1.7-2.3); Osmolality Calculated 286 mOsm/kg (285-295); Potassium 4.3 mmol/L (3.5-5.1); Sodium 134 mmol/L (136-145)
[2022-11-29] MEDS: aspirin 81 mg EC Tablet PO (09:41)
[2022-11-29] MEDS: magnesium oxide 400 mg tablet PO ×2 (09:41→18:32)
[2022-11-29] MEDS: TRAMadol 50 mg Tablet PO ×2 (09:42→20:35)
[2022-11-29] MEDS: hyDRALAzine 25 mg Tablet PO ×2 (09:42→18:32)
[2022-11-29] MEDS: carvedilol 6.25 mg Tablet PO ×2 (09:43→18:32)
[2022-11-29] MEDS: atorvastatin 40 mg Tablet PO (09:43)
[2022-11-29] MEDS: levothyroxine 125 mcg Tablet PO (09:43)
[2022-11-29] MEDS: lisinopril 20 mg Tablet 40 MG PO (09:46)
[2022-11-29] MEDS: montelukast sodium 10 mg Tablet PO (09:46)
[2022-11-29] MEDS: nystatin powder 15 gm Btl 1 APPLIC TOPICAL ×2 (09:47→18:38)
[2022-11-29] MEDS: ipratropium-albuterol 3 mL Neb INHALATION (10:01)
[2022-11-29] MEDS: polyethylene glycol 3350 Pkt 17 gm PO ×2 (10:18→10:25)
[2022-11-29] MEDS: sennosides-docusate Tablet 1 TAB PO (10:22)
[2022-11-29] MEDS: potassium chloride ER 10 mEq Tablet PO (10:22)
--- NOTE | 2022-11-29 14:51 | PM.PN ---
Subjective Subjective: Sitting up in bed appearing comfortable today. He says she was taken to [facility] today to do a cardiac stress test she was mistaken for another patient. Right before medicine was injected into her they found that it was the wrong patient and they sent her back to the floor. She says because of this whole trip her back is hurting more than usual. At baseline she has back spasms and has chronic back pain. Otherwise from breathing aspect she seems to doing better. Pleural effusion was exudative. Possibly parapneumonic effusion. Vitals/I&O/Wt Last Vital Signs Temp 97.8 F 11/29/22 12:00 Pulse 93 11/29/22 12:00 Resp 18 11/29/22 12:00 BP 134/80 11/29/22 12:00 Pulse Ox 93 11/29/22 12:00 O2 Del Method 11/29/22 12:00 O2 Flow Rate 4 11/29/22 10:02 11/28/22 11/29/22 11/29/22 22:59 06:59 14:59 Intake Total 380 / 980 340 / 340 Output Total 500 / 500 300 / 800 475 / 475 Balance -120 / 480 -300 / 180 -135 / -135 Physical Exam Narrative: General: Alert oriented x3, patient laying in bed with granddaughter at bedside. HEENT: Normocephalic, atraumatic, EOMI, Cardio: Slightly tachycardic, normal S1-S2, unable to assess JVD due to body habitus. Respiratory: Very mild crackles at left base, right side clear to auscultation. GI: Abdomen soft, nontender, obese rounded abdomen bowel sounds + Extremities: Trace bilateral pitting edema lower extremities. Urinary Catheter Management: Macario: Cath Placed During This Visit: yes Reason for Continuing Indwelling Catheter: Acute Urinary Retention or Obstruction Urinary Catheter Date of Insertion: 11/25/22 Urinary Catheter Time of Insertion: 21:20 Data 11/29/22 04:56 11/29/22 04:56 A&P Assessment and plan (1) Mild concentric left ventricular hypertrophy (LVH): (2) Diastolic CHF: (3) Morbid obesity: (4) Congestive heart failure: Qualifiers: Heart failure chronicity: acute on chronic Heart failure type: diastolic Qualified Code(s): I50.33 - Acute on chronic diastolic (congestive) heart failure (5) Major depressive disorder, recurrent, in full remission: (6) Acute respiratory failure with hypoxia: Plan 82-year-old female who was readmitted to the hospital for management of diastolic CHF exacerbation, that she lives in an apartment, requires 2 L at baseline, this time with diastolic CHF exacerbation she requiring 3 L of oxygen, very lethargic and fatigued, she might need rehab if recommended by the PT, she gets short of breath after walking only 10-15 steps in her 1 bedroom apartment, echo revealed diastolic dysfunction, she also has tricuspid regurgitation.? Patient is stating she eats healthy diet, she has remained hypertensive throughout hospitalization which could be the cause of exacerbation #Diastolic CHF exacerbation #Acute on chronic hypo #Left ventricular hypertrophy #Morbid obesity #Depression #Obstructive sleep apnea must be ruled out as an outpatient. She has a sleep study. #Left parapneumonic pleural effusion Likely related to uncontrolled hypertension Optimize antihypertensive regimen Echo did not show significant reduction in EF but limited view Work with PT Currently on 3 L of oxygen Continue Lasix 40 oral daily Pleural effusion drained yesterday. 1 L removed. Exudative by lights criteria. Most likely prior to 1 effusion. Discussed with pulmonology. We will treat with antibiotics at this time. Pulm with follow-up outpatient. Cytology is pending. Discontinue Macario catheter today. Begin voiding trial. #Mild hyponatremia?improved ? Sodium 129 ? Check urine sodium, serum osmolality ? Sodium improved to 134 today. Cardiac diet Replenish hypomagnesemia with preoperative magnesium Continue with thyroxine For uncontrolled hypertension: Continue lisinopril to 40 mg daily, continue Coreg dose, increase hydralazine 25 mg TID DNR/DNI Granddaughter at bedside updated. All questions answered. Pending fpc placement. Attestations Medical Necessity Statement*: Voiding trial today. Most likely will be ready for discharge in next 24 hours. Coding Level of Care Code Acute Code for Chg Fwd Diagnoses Mild concentric left ventricular hypertrophy (LVH) I51.7 Diastolic CHF I50.30 Morbid obesity E66.01 Congestive heart failure I50.33 Heart failure chronicity: acute on chronic Heart failure type: diastolic Major depressive disorder, recurrent, in full remission F33.42 Acute respiratory failure with hypoxia J96.01
--- NOTE | 2022-11-29 14:54 | PC.NURSE ---
Pts rico removed per MDs order at 1450. Pt tolerated well. Will cont to monitor.
--- NOTE | 2022-11-29 14:57 | CT_ITS ---
WS: [id number] CT CHEST WITHOUT INTRAVENOUS CONTRAST HISTORY: parapneumonic effusion TECHNIQUE: Contiguous 5 mm axial imaging performed on the thorax. Coronal and sagittal reformats are submitted. All CT scans at [facility] use at least one of these dose optimization techniques: automated exposure control; mA and/or kV adjustment per patient size (includes targeted exams where dose is matched to clinical indication); or iterative reconstruction. CONTRAST: None DLP: 519.78 mGy.cm COMPARISON: Chest radiograph 11/28/2022 Lungs and central airway: Masslike consolidation at the LEFT hilum. Without IV contrast cannot charac terize further but there is also mild mass effect and narrowing of the LEFT bronchi. Postobstructive atelectasis LEFT lower lobe and a small LEFT pleural effusion. Central opacification in the LEFT upp er lobe. Mild groundglass attenuation throughout the RIGHT lung. Pleura: There is pleural nodularity on the LEFT involving both the visceral and parietal pleura. Heart and pericardium: Moderate cardiomegaly. No pericardial effusion. Coronary artery calcifications . Mediastinum and toya: Dense area of consolidation extending into the LEFT hilum obscuring the broncho vascular structures. This is contiguous into the LEFT lower lung field. Additional enlarged lymph nod e at the AP window measuring 1.7 cm. Additional bilateral paratracheal lymph nodes. Vessels: Moderate atherosclerosis aorta. Pulmonary arteries enlarged. Chest wall and lower neck: No soft tissue masses. Upper abdomen: Heterogeneous appearance of the liver. Diffuse metastatic disease is not excluded. The re are a few areas of decreased attenuation in the RIGHT lobe measuring up to 13 mm. No bile duct dil atation. Osseous structures: Increase in thoracic kyphosis. CT/CT chest wo con [id number] IMPRESSION: 1. Lack of IV contrast causes significant limitation of this examination to ev aluate for adenopathy and neoplasm. 2. Dense area of consolidation and masslike configuration centered at the LEFT hilum extending into the LEFT lower lobe. Highly suspicious for LEFT hilar mas s. 3. Small LEFT pleural effusion. 4. LEFT visceral and parietal nodules suspicious for metastatic pleural-based disease. 5. Enlarged mediastinal and hilar lymph nodes. Suspect metastatic disease. 6. Abnormal liver. Metastatic disease diffusely throughout the liver or focall y in the RIGHT lower lobe suspected. 7. Recommendation: CT chest, abdomen and pelvis with IV and oral contrast is r ecommended. If this CT cannot be performed recommend bronchoscopy and RIGHT upp er quadrant ultrasound.
[2022-11-29] MEDS: cyclobenzaprine 10 mg Tablet 5 MG PO ×2 (15:03→23:36)
[2022-11-29] MEDS: morphine 4 mg/mL SDV 1 mL 1 MG IVP ×2 (15:04→23:35)
[2022-11-29] MEDS: amoxicillin-clav 875-125 mg Tablet 1 TAB PO (18:32)
[2022-11-29] MEDS: enoxaparin 40 mg/0.4 mL Syringe SUBCUT (20:34)
[2022-11-29] MEDS: primidone 50 mg Tablet 300 MG PO (20:34)
[2022-11-29] MEDS: trazodone 150 mg Tablet PO (20:35)
[2022-11-30] VITALS (13 sets, daily range): BP systolic 125–151; BP diastolic 74–93; PULSE 92–114; RESP 16–36; TEMP 36.4–36.8; O2SAT 92–95
[2022-11-30 05:38] LABS: Basophils % 0.5 %; Eosinophils # 0.2 10^3/uL (0.0-0.8); Hematocrit 36.8 % (37.0-47.0); Hemoglobin 11.6 g/dL (11.5-15.3); Lymphocytes # 1.1 10^3/uL (0.8-4.8); Lymphocytes % 14.4 %; Mean Corpuscular HGB Conc 31.5 g/dL (30.0-36.0); Mean Corpuscular Hemoglobin 29.7 pg (28.0-34.0); Mean Corpuscular Volume 94.4 fl (81-99); Mean Platelet Volume 11.4 fL (7.4-10.4); Monocytes # 0.9 10^3/uL (0.2-0.9); Monocytes % 11.3 %; Neutrophils # 5.52 10^3/uL (1.8-7.7); Neutrophils % 70.2 %; Nucleated Red Blood Cells % 0 %; Platelet Count 254 10^3/cmm (130-400); Red Cell Distribution Width 12.6 % (12.1-15.1); White Blood Count 7.9 10^3/uL (4.0-10.0)
[2022-11-30 06:04] LABS: Blood Urea Nitrogen 32 mg/dL (8-23); Calcium 9.6 mg/dL (8.5-10.5); Carbon Dioxide 32 mmol/L (22-29); Chloride 90 mmol/L (98-107); Glucose 151 mg/dL (65-115); Osmolality Calculated 282 mOsm/kg (285-295); Sodium 131 mmol/L (136-145)
[2022-11-30 06:12] LABS: Anion Gap 13.8 (5-19)
[2022-11-30 06:13] LABS: Potassium 4.8 mmol/L (3.5-5.1)
--- NOTE | 2022-11-30 09:07 | PC.SOCIAL ---
IMM Update pg 2 of IMM updated and reviewed w/ patient. Copy provided and copy in chart dated, and initialed.
[2022-11-30] MEDS: potassium chloride ER 10 mEq Tablet PO (09:16)
[2022-11-30] MEDS: amoxicillin-clav 875-125 mg Tablet 1 TAB PO ×2 (09:16→17:24)
[2022-11-30] MEDS: montelukast sodium 10 mg Tablet PO (09:16)
[2022-11-30] MEDS: atorvastatin 40 mg Tablet PO (09:16)
[2022-11-30] MEDS: FUROsemide 40 mg Tablet PO (09:16)
[2022-11-30] MEDS: aspirin 81 mg EC Tablet PO (09:16)
[2022-11-30] MEDS: sennosides-docusate Tablet 1 TAB PO (09:16)
[2022-11-30] MEDS: magnesium oxide 400 mg tablet PO ×2 (09:16→17:23)
[2022-11-30] MEDS: levothyroxine 125 mcg Tablet PO (09:17)
[2022-11-30] MEDS: polyethylene glycol 3350 Pkt 17 gm PO (09:17)
--- NOTE | 2022-11-30 10:02 | XRR_ITS ---
PROCEDURE INFORMATION: Exam: XR Chest Exam date and time: 11/30/2022 10:09 AM Age: 82 years old Clinical indication: Device placement; Other: Post thora; Shortness of breath; Prior surgery; Surgery date: Post-operative (0-2 days); Additional info: SOB TECHNIQUE: Imaging protocol: Radiologic exam of the chest. Views: 1 view. COMPARISON: CT chest con [id number] 11/29/2022 3:20 PM FINDINGS: Lungs: Left perihilar interstitial congestion. No consolidation. Low lung volumes seen. The left upper lobe and right lung are clear. Pleural spaces: Left lower lobe pleural effusion. No pneumothorax. Heart/Mediastinum: Unremarkable. No cardiomegaly. Bones/joints: Dorsal spine osteoarthritis XR/XR chest 1V [id number] IMPRESSION: 1. Low lung volumes 2. Left perihilar interstitial congestion . 3. Left lower lobe pleural effusion
[2022-11-30] MEDS: ipratropium-albuterol 3 mL Neb INHALATION ×2 (10:37→23:16)
[2022-11-30] MEDS: cyclobenzaprine 10 mg Tablet 5 MG PO ×2 (11:02→19:48)
--- NOTE | 2022-11-30 11:34 | P.PN_ITS ---
Subjective Subjective: Seen this morning. Patient resting comfortably in bed. Vital stable. I shared with her the results of her CT scan and that she will need needing a biopsy along with bronchoscopy. Patient states she would like to have it done while she is in the hospital. She would like her diagnosis to be as quick as possible but would not be interested in any chemotherapy or radiation. She states her had cancer and she knows how cancer gets people sick. Macario catheter was removed yesterday and patient is able to void on her own. Vitals/I&O/Wt Last Vital Signs Temp 98.2 F 11/30/22 07:09 Pulse 99 11/30/22 10:46 Resp 16 11/30/22 10:38 BP 125/74 11/30/22 07:09 Pulse Ox 94 11/30/22 10:38 O2 Del Method 11/30/22 10:38 O2 Flow Rate 3 11/30/22 10:38 11/29/22 11/30/22 11/30/22 22:59 06:59 14:59 Intake Total 600 / 940 480 / 480 Balance 600 / 465 480 / 480 Physical Exam Narrative: General: Alert oriented x3, sitting up in chair. No family at bed side today. HEENT: Normocephalic, atraumatic, EOMI, Cardio: Normal S1-S2, rate regular Respiratory: Clear to auscultation bilaterally with mild crackles at right base today. GI: Abdomen soft, nontender, obese rounded abdomen bowel sounds + Extremities: Trace bilateral pitting edema lower extremities. Urinary Catheter Management: Macario: Cath Placed During This Visit: yes Reason for Continuing Indwelling Catheter: Acute Urinary Retention or Obstruction Urinary Catheter Date of Insertion: 11/25/22 Urinary Catheter Time of Insertion: 21:20 Data 11/30/22 04:56 11/30/22 04:56 A&P Assessment and plan (1) Mild concentric left ventricular hypertrophy (LVH): (2) Diastolic CHF: (3) Morbid obesity: (4) Congestive heart failure: Qualifiers: Heart failure chronicity: acute on chronic Heart failure type: d iastolic Qualified Code(s): I50.33 - Acute on chronic diastolic (congestive) heart failure (5) Major depressive disorder, recurrent, in full remission: (6) Acute respiratory failure with hypoxia: Plan 82-year-old female who was readmitted to the hospital for management of diastolic CHF exacerbation, that she lives in an apartment, requires 2 L at baseline, this time with diastolic CHF exacerbation she requiring 3 L of oxygen, very lethargic and fatigued, she might need rehab if recommended by the PT, she gets short of breath after walking only 10-15 steps in her 1 bedroom apartment, echo revealed diastolic dysfunction, she also has tricuspid regurgitation.? Patient is stating she eats healthy diet, she has remained hypertensive throughout hospitalization which could be the cause of exacerbation #Diastolic CHF exacerbation #Acute on chronic hypo #Left ventricular hypertrophy #Morbid obesity #Depression #Obstructive sleep apnea must be ruled out as an outpatient. She has a sleep study. 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 1 L removed. Exudative by lights criteria. Most likely prior to 1 effusion. Discussed with pulmonology. We will treat with antibiotics at this time. Pulm with follow-up outpatient. -CT chest was done yesterday which showed dense area of consolidation masslike configuration centered at the left hilum extending into the left lower lobe highly suspicious for left hilar mass. Left visceral and parietal nodules suspicious for metastatic pleural-based disease. Enlarged mediastinal and hilar lymph nodes. Suspect metastatic disease. Abnormal liver metastatic disease diffusely throughout the liver or focally in right lower lobe suspected. CT chest abdomen pelvis with IV and oral contrast recommended. If this cannot be performed recommend bronchoscopy and right upper quadrant ultrasound. Patient's creatinine is 1.2 and we will avoid IV contrast at this time. Have discussed with pulmonology. Patient will need a bronchoscopy along with biopsy. We may do this this upcoming Monday however if patient ends up getting discharged to detention we may do it as an outpatient this upcoming Monday. I have discussed both options with the patient's and she is okay either way for now. She states that she just wants a tissue diagnosis but probably will not pursue any kind of chemotherapy or radiation as her has had cancer and she has taken care of him during his last days. #Mild hyponatremia?improved ? Sodium 131 Cardiac diet Replenish hypomagnesemia with preoperative magnesium Continue with thyroxine For uncontrolled hypertension: Continue lisinopril to 40 mg daily, continue Coreg dose, increase hydralazine 25 mg TID DNR/DNI Granddaughter at bedside updated. All questions answered. Pending detention placement. Attestations Medical Necessity Statement*: Pending placement at this time. Coding Level of Care Code Acute Code for Chg Fwd Diagnoses Mild concentric left ventricular hypertrophy (LVH) I51.7 Diastolic CHF I50.30 Morbid obesity E66.01 Congestive heart failure I50.33 Heart failure chronicity: acute on chronic Heart failure type: diastolic Major depressive disorder, recurrent, in full remission F33.42 Acute respiratory failure with hypoxia J96.01
[2022-11-30] MEDS: carvedilol 6.25 mg Tablet PO (17:24)
[2022-11-30] MEDS: TRAMadol 50 mg Tablet PO (17:29)
[2022-11-30] MEDS: trazodone 150 mg Tablet PO (19:47)
[2022-11-30] MEDS: primidone 50 mg Tablet 300 MG PO (19:48)
[2022-11-30] MEDS: enoxaparin 40 mg/0.4 mL Syringe SUBCUT (19:48)
[2022-11-30] MEDS: morphine 4 mg/mL SDV 1 mL 1 MG IVP (19:50)
[2022-12-01] VITALS (13 sets, daily range): BP systolic 108–161; BP diastolic 73–95; PULSE 95–106; RESP 18–27; TEMP 36.7–37.1; O2SAT 91–99
[2022-12-01] MEDS: morphine 4 mg/mL SDV 1 mL 1 MG IVP (02:26)
--- NOTE | 2022-12-01 07:44 | PM.PN ---
Subjective Subjective: seen today doing well requesting to see pulmonology regarding ct findings and interested in having bronchoscopy done Vitals/I&O/Wt Last Vital Signs Temp 98.1 F 12/01/22 07:17 Pulse 100 12/01/22 07:17 Resp 22 H 12/01/22 07:17 BP 109/73 12/01/22 07:17 Pulse Ox 94 12/01/22 07:17 O2 Del Method 12/01/22 03:57 O2 Flow Rate 4 12/01/22 03:57 11/30/22 12/01/22 12/01/22 22:59 06:59 14:59 Intake Total 360 / 1320 240 / 1560 Balance 360 / 1320 240 / 1560 Physical Exam Narrative: General: Alert oriented x3, sitting up in chair. No family at bedside today. HEENT: Normocephalic, atraumatic, EOMI, Cardio: Normal S1-S2, rate regular Respiratory: Clear to auscultation bilaterally with mild ronchi at bases GI: Abdomen soft, nontender, obese rounded abdomen bowel sounds + Extremities: Trace bilateral pitting edema lower extremities. Urinary Catheter Management: Macario: Cath Placed During This Visit: yes Reason for Continuing Indwelling Catheter: Acute Urinary Retention or Obstruction Urinary Catheter Date of Insertion: 11/25/22 Urinary Catheter Time of Insertion: 21:20 Data 11/30/22 04:56 11/30/22 04:56 Micro: Microbiology 11/25/22 20:15 Blood Culture - Final Blood NO GROWTH AFTER 5 DAYS 11/25/22 18:51 Blood Culture - Final Blood NO GROWTH AFTER 5 DAYS A&P Assessment and plan (1) Mild concentric left ventricular hypertrophy (LVH): (2) Diastolic CHF: (3) Morbid obesity: (4) Congestive heart failure: Qualifiers: Heart failure chronicity: acute on chronic Heart failure type: diastolic Qualified Code(s): I50.33 - Acute on chronic diastolic (congestive) heart failure (5) Major depressive disorder, recurrent, in full remission: (6) Acute respiratory failure with hypoxia: Plan 82-year-old female who was readmitted to the hospital for management of diastolic CHF exacerbation, that she lives in an apartment, requires 2 L at baseline, this time with diastolic CHF exacerbation she requiring 3 L of oxygen, very lethargic and fatigued, she might need rehab if recommended by the PT, she gets short of breath after walking only 10-15 steps in her 1 bedroom apartment, echo revealed diastolic dysfunction, she also has tricuspid regurgitation.? Patient is stating she eats healthy diet, she has remained hypertensive throughout hospitalization which could be the cause of exacerbation #Diastolic CHF exacerbation #Acute on chronic hypo #Left ventricular hypertrophy #Morbid obesity #Depression #Obstructive sleep apnea must be ruled out as an outpatient. She has a sleep study. 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 1 L removed. Exudative by lights criteria. Most likely prior to 1 effusion. Discussed with pulmonology. We will treat with antibiotics at this time. Pulm with follow-up outpatient. -CT chest was done yesterday which showed dense area of consolidation masslike configuration centered at the left hilum extending into the left lower lobe highly suspicious for left hilar mass. Left visceral and parietal nodules suspicious for metastatic pleural-based disease. Enlarged mediastinal and hilar lymph nodes. Suspect metastatic disease. Abnormal liver metastatic disease diffusely throughout the liver or focally in right lower lobe suspected. CT chest abdomen pelvis with IV and oral contrast recommended. If this cannot be performed recommend bronchoscopy and right upper quadrant ultrasound. Patient's creatinine is 1.2 and we will avoid IV contrast at this time. Will consult pulmonology. Bronch in AM at 11. Hold night lovenox. NPO at midnight. She states that she just wants a tissue diagnosis but probably will not pursue any kind of chemotherapy or radiation as her has had cancer and she has taken care of him during his last days. #Mild hyponatremia?improved ? Sodium 131 Cardiac diet Continue with thyroxine For uncontrolled hypertension: Continue lisinopril to 40 mg daily, continue Coreg dose,stop hydralazine 25 mg TID DNR/DNI Granddaughter at bedside updated. All questions answered. Bronchoscopy in AM, then discharge to [place] Attestations Medical Necessity Statement*: Bronch in AM. Then dc to [facility] Coding Level of Care Code Acute Code for Chg Fwd Diagnoses Mild concentric left ventricular hypertrophy (LVH) I51.7 Diastolic CHF I50.30 Morbid obesity E66.01 Congestive heart failure I50.33 Heart failure chronicity: acute on chronic Heart failure type: diastolic Major depressive disorder, recurrent, in full remission F33.42 Acute respiratory failure with hypoxia J96.01
[2022-12-01] MEDS: magnesium oxide 400 mg tablet PO ×2 (07:52→17:45)
[2022-12-01] MEDS: amoxicillin-clav 875-125 mg Tablet 1 TAB PO ×2 (07:52→17:44)
[2022-12-01] MEDS: aspirin 81 mg EC Tablet PO (07:52)
[2022-12-01] MEDS: levothyroxine 125 mcg Tablet PO (07:52)
[2022-12-01] MEDS: lisinopril 20 mg Tablet 40 MG PO (07:53)
[2022-12-01] MEDS: montelukast sodium 10 mg Tablet PO (07:53)
[2022-12-01] MEDS: carvedilol 6.25 mg Tablet PO ×2 (07:53→17:45)
[2022-12-01] MEDS: atorvastatin 40 mg Tablet PO (07:53)
[2022-12-01] MEDS: sennosides-docusate Tablet 1 TAB PO (07:54)
[2022-12-01] MEDS: potassium chloride ER 10 mEq Tablet PO (07:54)
[2022-12-01] MEDS: polyethylene glycol 3350 Pkt 17 gm PO (07:54)
[2022-12-01] MEDS: FUROsemide 40 mg Tablet PO (07:54)
[2022-12-01] MEDS: nystatin powder 15 gm Btl 1 APPLIC TOPICAL ×2 (07:55→17:45)
[2022-12-01] MEDS: ipratropium-albuterol 3 mL Neb INHALATION ×2 (10:51→16:04)
[2022-12-01 10:53] LABS: Adenovirus Not Detected (NOT DETECT); Chlamydia Pneumoniae Not Detected (NOT DETECT); Coronavirus 229E,HKU1,NL63,OC4 Not Detected (NOT DETECT); Human Metapneumovirus Not Detected (NOT DETECT); Human Rhinovirus/Enterovirus Not Detected (NOT DETECT); Influenza A Not Detected (NOT DETECT); Influenza A H1 Not Detected (NOT DETECT); Influenza A H1-2009 Not Detected (NOT DETECT); Influenza A H3 Not Detected (NOT DETECT); Influenza B Not Detected (NOT DETECT); Mycoplasma Pneumoniae Not Detected (NOT DETECT); Parainfluenza Virus Type 1 Not Detected (NOT DETECT); Parainfluenza Virus Type 2 Not Detected (NOT DETECT); Parainfluenza Virus Type 3 Not Detected (NOT DETECT); Parainfluenza Virus Type 4 Not Detected (NOT DETECT); Respiratory Syncytial Virus A Not Detected (NOT DETECT); Respiratory Syncytial Virus B Not Detected (NOT DETECT); SARS-COV-2 Not Detected (NOT DETECT)
--- NOTE | 2022-12-01 11:00 | US_ITS ---
WS: [id number] Complete ABDOMINAL ULTRASOUND HISTORY: liver lesions? COMPARISON: None available. Liver: 17.3 cm in length. Top normal size liver. Liver is very heterogeneous but no discrete masses a re identified. No bile duct dilatation. Portal Vein: Normal hepatopetal flow with monophasic waveform. Gallbladder: Normally distended with several stones. No pericholecystic fluid. Pancreas: Poorly visualized due to body habitus. No abnormality seen. CBD: 0.7 cm. Right kidney: 10.3 cm x 5.7 cm x 4.9 cm. Normal size kidney. No hydronephrosis. Small cortical cysts with the largest measuring 1.7 cm. No solid mass seen. Left kidney: 9.6,9.9 cm x 5.2 cm x 4.1 cm. Echogenic kidney. Kidney is very poorly identified. This is probably due to chronic medical renal disease. No hydronephrosis. Suspicious for small cyst measur ing 2.1 cm. Spleen: Normal size and echogenicity. Normal size. By history prior repair. No ascites. US/US abdomen complete* [id number] IMPRESSION: 1. Mildly enlarged but very heterogeneous liver. No mass is identified. Study is limited by body habitus. 2. Cholelithiasis without acute cholecystitis. 3. Poorly visualized LEFT kidney. No hydronephrosis. 4. Bilateral renal cysts.
[2022-12-01 14:05] LABS: Pleural Fld Adenosine Deami 26.2 U/L (<9.2)
[2022-12-01] MEDS: TRAMadol 50 mg Tablet PO (15:12)
[2022-12-01] MEDS: cyclobenzaprine 10 mg Tablet 5 MG PO (15:24)
[2022-12-01] MEDS: primidone 50 mg Tablet 300 MG PO (21:27)
[2022-12-01] MEDS: trazodone 150 mg Tablet PO (21:27)
--- NOTE | 2022-12-01 23:27 | P.CONIM_ITS ---
Providers/Reason For Consult Consulting Physician/Specialty*: Horacio Esteban MD/Pulmonary Critical Care Reason for Consult*: CT evidence of left hilar mass, mediastinal lymphadenopathy-is highly suspicious for malignancy Requesting Physician: Vanessa Will MD Attending Physician: Vanessa Will MD History of Present Illness History of Present Illness Shellie Odell is a 82 year old female with a past medical history of morbid obesity, history of tremor, history of depression, hypothyroidism, hyperlipidemia, mild LVH, diastolic CHF, recently discharged from [facility] for diastolic CHF exacerbation, discharged on 2 L oxygen who presents [facility] for increased shortness of breath with exertion, orthopnea, paroxysmal nocturnal dyspnea. ? She also reports acute on chronic cough, no fevers, chills, no sick contacts, no recent travel, she was here in the hospital, no history of COVID, no history of flu.? She is admitted again for diastolic CHF exacerbation. Currently she is being managed with Lasix 40 Mg daily, carvedilol 6.25 Mg p.o. twice daily, aspirin 81 Mg daily, Lovenox 40 Mg daily 24 hours. She underwent thoracentesis on 11/28/2021-about 1 L of bloody fluid was drained by IR, pleural fluid is lymphocyte predominant exudative, pleural WBC 1158, tot al protein 3.8, pleural LDH 280, pleural ADA 26. Patient had a CT chest which showed left hilar mass and lymph nodes in the mediastinum Pulmonary consulted for bronchoscopic evaluation of left hilar mass and mediastinal masses She is on 4 L nasal cannula Patient denied any smoking history. Patient is currently optimized and will be discharged with 1 to 2 days. She would want to know if it is a malignancy and agreed to go for bronchoscopic evaluation. Medications/Allergies Home Medications Medication Instructions Recorded Confirmed Last Taken Type atenolol 50 mg tablet 50 mg PO DAILY 01/10/20 11/26/22 Unknown History fexofenadine 60 mg tablet (Omaira 60 mg PO DAILY PRN Allergy Symptoms 01/10/20 11/26/22 Unknown History Allergy) primidone 50 mg tablet (Mysoline) 50 mg PO QID 01/10/20 11/26/22 Unknown History tramadol 50 mg tablet 50 mg PO QID PRN Pain 01/10/20 11/26/22 Unknown History fluvoxamine 100 mg tablet See Rx Instructions .Route 08/24/22 11/26/22 Unknown Rx .COMPLEX #60 tabs trazodone 150 mg tablet See Rx Instructions .Route 08/24/22 11/26/22 Unknown Rx .COMPLEX #60 tabs fluvoxamine 50 mg tablet 50 mg PO BEDTIME 11/13/22 11/25/22 Unknown History levothyroxine 125 mcg tablet 125 mcg PO DAILY 11/13/22 11/26/22 Unknown History montelukast 10 mg tablet 10 mg PO DAILY 11/13/22 11/26/22 Unknown History albuterol sulfate 90 mcg/actuation 2 inh inhalation Q8H PRN shortness 11/14/22 11/26/22 Unknown Rx aerosol inhaler of breath or wheezing #8.5 grams furosemide 20 mg tablet (Lasix) 20 mg PO DAILY #60 tabs 11/14/22 11/26/22 Unknown Rx lisinopril 10 mg tablet 20 mg PO DAILY #60 tabs 11/14/22 11/26/22 Unknown Rx potassium chloride 10 mEq 10 meq PO DAILY #60 tabs 11/14/22 11/26/22 Unknown Rx tablet,extended release Allergies Allergy/AdvReac Type Severity Reaction Status Date / Time clarithromycin [From Biaxin] Allergy Unknown Unknown Verified 11/12/22 17:05 levofloxacin [From Levaquin] Allergy Unknown unk Verified 11/12/22 17:05 Sulfa (Sulfonamide Allergy Unknown unk Verified 11/12/22 17:05 Antibiotics) cheese Allergy ALGY-Nasal Verified 12/02/22 08:33 Discharge codeine AdvReac ADR-Nausea Verified 11/12/22 22:50 Current Medications Generic Name Dose Route Start Last Admin Trade Name Freq PRN Reason Stop Dose Admin Acetaminophen 650 mg 11/25/22 19:56 11/27/22 01:53 Acetaminophen 325 Mg Tablet PO 650 mg Q6H PRN Administration Mild/Mod Pain Or Temp >/= 101 Albuterol/Ipratropium 3 ml 11/25/22 20:54 12/01/22 16:04 Ipratropium-Albuterol 3 Ml Neb INHALATION 3 ml Q4H PRN Administration SHORTNESS OF BREATH Amoxicillin/Clavulanate Potassium 1 tab 11/29/22 18:00 12/01/22 17:44 Amoxicillin-Clav 875-125 Mg Tablet PO 1 tab BID REBECCA Administration Protocol Aspirin 81 mg 11/26/22 09:00 12/01/22 07:52 Aspirin 81 Mg Ec Tablet PO 81 mg DAILY REBECCA Administration Atorvastatin Calcium 40 mg 11/26/22 09:00 12/01/22 07:53 Atorvastatin 40 Mg Tablet PO 40 mg DAILY REBECCA Administration Carvedilol 6.25 mg 11/27/22 18:00 12/01/22 17:45 Carvedilol 6.25 Mg Tablet PO 6.25 mg BID REBECCA Administration Cyclobenzaprine HCl 5 mg 11/27/22 11:03 12/01/22 15:24 Cyclobenzaprine 10 Mg Tablet PO 5 mg BID PRN Administration MUSCLE SPASMS Enoxaparin Sodium 40 mg 11/25/22 21:00 12/01/22 12:11 Enoxaparin 40 Mg/0.4 Ml Syringe SUBCUT Not Given Q24H [facility] Furosemide 40 mg 11/30/22 08:00 12/01/22 07:54 Furosemide 40 Mg Tablet PO 40 mg DAILY@0800 [facility] Administration Levothyroxine Sodium 125 mcg 11/26/22 09:00 12/01/22 07:52 Levothyroxine 125 Mcg Tablet PO 125 mcg DAILY [facility] Administration Lisinopril 40 mg 11/28/22 09:00 12/01/22 07:53 Lisinopril 20 Mg Tablet PO 40 mg DAILY [facility] Administration Magnesium Oxide 400 mg 11/27/22 18:00 12/01/22 17:45 Magnesium Oxide 400 Mg Tablet PO 400 mg BID [facility] Administration Montelukast Sodium 10 mg 11/26/22 09:00 12/01/22 07:53 Montelukast Sodium 10 Mg Tablet PO 10 mg DAILY [facility] Administration Morphine Sulfate 1 mg 11/25/22 21:22 12/01/22 02:26 Morphine 4 Mg/Ml Sdv 1 Ml IVP 1 mg Q4H PRN Administration SEVERE PAIN Nystatin 1 applic 11/28/22 18:00 12/01/22 17:45 Nystatin Powder 15 Gm Btl TOPICAL 1 applic BID [facility] Administration Polyethylene Glycol 17 gm 11/27/22 17:00 12/01/22 07:54 Polyethylene Glycol 3350 Pkt 17 Gm PO 12/02/22 23:59 17 gm DAILY [facility] Administration Potassium Chloride 10 meq 11/26/22 09:00 12/01/22 07:54 Potassium Chloride Er 10 Meq Tablet PO 10 meq DAILY REBECCA Administration Primidone 300 mg 11/25/22 21:00 12/01/22 21:27 Primidone 50 Mg Tablet PO 300 mg BEDTIME REBECCA Administration Senna/Docusate Sodium 1 tab 11/28/22 09:00 12/01/22 07:54 Sennosides-Docusate Tablet PO 1 tab DAILY REBECCA Administration Tramadol HCl 50 mg 11/25/22 20:54 12/01/22 15:12 Tramadol 50 Mg Tablet PO 50 mg QID PRN Administration Pain Trazodone HCl 150 mg 11/26/22 21:00 12/01/22 21:27 Trazodone 150 Mg Tablet PO 150 mg BEDTIME REBECCA Administration PFSH Acute PFSH: Medical History Acute respiratory failure with hypoxia Hypoxia Major depressive disorder, recurrent, in full remission New onset of congestive heart failure Psychiatric care Shortness of breath Upper respiratory infection Surgical History History of right knee surgery Family History Other Hypertension Social History Smoking and tobacco status: never smoked Alcohol intake: never Vitals/I&O/Wt Last Vital Signs Temp 98.7 F 12/01/22 19:40 Pulse 102 H 12/01/22 22:00 Resp 24 H 12/01/22 19:40 BP 161/91 12/01/22 19:40 Pulse Ox 91 12/01/22 19:40 O2 Del Method 12/01/22 19:40 O2 Flow Rate 4 12/01/22 19:40 12/01/22 12/01/22 12/02/22 14:59 22:59 06:59 Intake Total 840 / 840 340 / 1180 Balance 840 / 840 340 / 1180 Physical Exam Narrative: General: alert, morbidly obese, not in acute distress-on 4 L nasal cannula HEENT: conj clear, EOMI, PERRL, mmm, Neck: supple, no meningismus Heme: no cervical LAP Respiratory: Inspection: No visible deformity of the chest wall Palpation: Trachea is mildly deviated to the right, bilateral symmetric expansion Percussion: Bilateral tympanic percussion note both anterior and posteriorly Auscultation: Reduced breath sounds on left lung bilateral lower lobe crackles Cardiovascular: rrr, nl s1s2, no mrg Abdomen: soft, nt, nd, no r/g, bs+ Extremities: pulses +, no edema, no c/c : no CVA tenderness Skin: intact, no rash MSK: no back or neck pain Neurologic: grossly intact Urinary Catheter Management: Macario: Cath Placed During This Visit: yes Reason for Continuing Indwelling Catheter: Acute Urinary Retention or Obstruction Urinary Catheter Date of Insertion: 11/25/22 Urinary Catheter Time of Insertion: 21:20 Data 11/30/22 04:56 11/30/22 04:56 Other Labs: Radiology Impressions Thoracentesis Ultrasound 11/28/22 12:12 IMPRESSION: Uncomplicated ultrasound-guided LEFT thoracentesis with removal of [address] 11/29/22 14:57 IMPRESSION: 1. Lack of IV contrast causes significant limitation of this examination to evaluate for adenopathy and neoplasm. 2. Dense area of consolidation and masslike configuration centered at the LEFT hilum extending into the LEFT lower lobe. Highly suspicious for LEFT hilar mass. 3. Small LEFT pleural effusion. 4. LEFT visceral and parietal nodules suspicious for metastatic pleural-based disease. 5. Enlarged mediastinal and hilar lymph nodes. Suspect metastatic disease. 6. Abnormal liver. Metastatic disease diffusely throughout the liver or focally in the RIGHT lower lobe suspected. 7. Recommendation: CT chest, abdomen and pelvis with IV and oral contrast is recommended. If this CT cannot be performed recommend bronchoscopy and RIGHT upper quadrant ultrasound. Chest X-Ray 11/30/22 10:02 IMPRESSION: 1. Low lung volumes 2. Left perihilar interstitial congestion . 3. Left lower lobe pleural effusion Abdomen Ultrasound 12/01/22 11:00 IMPRESSION: 1. Mildly enlarged but very heterogeneous liver. No mass is identified. Study is limited by body habitus. 2. Cholelithiasis without acute cholecystitis. 3. Poorly visualized LEFT kidney. No hydronephrosis. 4. Bilateral renal cysts. Laboratory Results WBC 7.9 10^3/uL (4.0-10.0) 11/30/22 04:56 RBC 3.90 10^6/uL (4.1-5.3) L 11/30/22 04:56 Hgb 11.6 g/dL (11.5-15.3) 11/30/22 04:56 Hct 36.8 % (37.0-47.0) L 11/30/22 04:56 MCV 94.4 fl (81-99) 11/30/22 04:56 MCH 29.7 pg (28.0-34.0) 11/30/22 04:56 MCHC 31.5 g/dL (30.0-36.0) 11/30/22 04:56 RDW 12.6 % (12.1-15.1) 11/30/22 04:56 Plt Count 254 10^3/cmm (130-400) 11/30/22 04:56 MPV 11.4 fL (7.4-10.4) H 11/30/22 04:56 Neut % (Auto) 70.2 % 11/30/22 04:56 Lymph % (Auto) 14.4 % 11/30/22 04:56 [place] % (Auto) 11.3 % 11/30/22 04:56 Eos % (Auto) 3.0 % 11/30/22 04:56 Baso % (Auto) 0.5 % 11/30/22 04:56 Neut # (Auto) 5.52 10^3/uL (1.8-7.7) 11/30/22 04:56 Lymph # (Auto) 1.1 10^3/uL (0.8-4.8) 11/30/22 04:56 [place] # (Auto) 0.9 10^3/uL (0.2-0.9) 11/30/22 04:56 Eos # (Auto) 0.2 10^3/uL (0.0-0.8) 11/30/22 04:56 Baso # (Auto) 0.0 10^3/uL (0.0-0.1) 11/30/22 04:56 Nucleated RBC % (auto) 0 % 11/30/22 04:56 Total Counted Not Reportable 11/28/22 14:45 Nucleated RBCs # 0.0 /100WBC 11/30/22 04:56 PT 15.00 SECONDS (12.1-14.9) H 11/28/22 13:55 INR 1.15 (0.8-1.2) 11/28/22 13:55 Sodium 131 mmol/L (136-145) L 11/30/22 04:56 Potassium 4.8 mmol/L (3.5-5.1) 11/30/22 04:56 Chloride 90 mmol/L (98-107) L 11/30/22 04:56 Carbon Dioxide 32 mmol/L (22-29) H 11/30/22 04:56 Anion Gap 13.8 (5-19) 11/30/22 04:56 BUN 32 mg/dL (8-23) H 11/30/22 04:56 Creatinine 1.2 mg/dL (0.5-0.9) H 11/30/22 04:56 GFR Calculation Not Reportable 11/30/22 04:56 Glucose 151 mg/dL (65-115) H 11/30/22 04:56 Calculated Osmolality 282 mOsm/kg (285-295) L 11/30/22 04:56 Lactic Acid 1.3 mmol/L (0.5-2.2) 11/25/22 18:51 Calcium 9.6 mg/dL (8.5-10.5) 11/30/22 04:56 Magnesium 1.8 mg/dL (1.7-2.3) 11/29/22 04:56 Lactate Dehydrogenase 401 U/L (135-214) H 11/28/22 19:40 Troponin T Baseline 44 ng/L (0-10) H 11/25/22 18:51 Troponin T 120 Minute 65.52 ng/L (0-10) H 11/25/22 20:15 Delta Troponin T 21.52 ABS# (0-10) H* 11/25/22 20:15 Troponin T Hi Sens 6Hr 57.19 ng/L (0-10) H 11/26/22 01:05 Troponin T Hi Sens 6Hr Delta 13.19 ng/L (0-12) H* 11/26/22 01:05 C-Reactive Protein 86.7 mg/L (0.0-4.9) H 11/26/22 01:05 NT-Pro-B Natriuret Pep 1958 pg/mL (0-450) H 11/26/22 01:05 Total Protein 6.3 g/dL (6.6-8.7) L 11/28/22 19:40 Procalcitonin 0.72 ng/mL (0-0.5) H 11/26/22 01:05 Pleural Color Red (Pale Yellow) H 11/28/22 14:45 Pleural Appearance Bloody (CLEAR) 11/28/22 14:45 Pleural pH 8.00 (6.5-7.5) H 11/28/22 14:45 Pleural Spec [place] 1.010 11/28/22 14:45 Pleural WBC 1158.000 /uL (0-1000) H 11/28/22 14:45 Pleural RBC 558.000 10^3/uL 11/28/22 14:45 Pleural Mononuc # Auto 0.947 10^3/uL 11/28/22 14:45 Pleural Other Cells Not Reportable 11/28/22 14:45 Pleural Polynuclear % 18 % 11/28/22 14:45 Pleural Polynuclear # 0.211 10^3/uL 11/28/22 14:45 Pleural Mononuclear % 82 % 11/28/22 14:45 Pleural Other Cells Lt Left lung 11/28/22 14:45 Pleural Total Protein 3.8 g/dL 11/28/22 14:45 Pleural Albumin 2.4 g/dL 11/28/22 14:45 Pleural LDH 280 U/L 11/28/22 14:45 Pleural Glucose 222.0 mg/dL 11/28/22 14:45 Pleural Triglycerides 48 mg/dL 11/28/22 14:45 Pleur Adenosine Deamin 26.2 U/L (<9.2) H 11/28/22 14:45 Coronavirus 229E (PCR) Not detected (NOT DETECT) 12/01/22 08:40 Influenza Type A Ag negative (Negative) 11/25/22 18:26 Influenza Type B Ag negative (Negative) 11/25/22 18:26 SARS-CoV-2 (PCR) Not detected (NOT DETECT) 12/01/22 08:40 SARS-CoV-2 Ag (Rapid) Negative (Negative) 11/25/22 18:26 Path Cons w/Slide Yes 11/28/22 14:45 Micro: Microbiology 11/25/22 20:15 Blood Culture - Final Blood NO GROWTH AFTER 5 DAYS 11/25/22 18:51 Blood Culture - Final Blood NO GROWTH AFTER 5 DAYS A&P Assessment and plan (1) Diastolic CHF: (2) Acute respiratory failure with hypoxia: (3) Goals of care, counseling/discussion: (4) Hilar adenopathy: Plan #Left hilar mass and hilar adenopathy seen on CT chest -Suspicious for malignancy -We will proceed with bronchoscopic evaluation with endobronchial ultrasound and obtain biopsies tomorrow -Patient agreed with the procedure as she would want to know her diagnosis before going to jail as it is difficult to come back again for the procedure as outpatient. #Diastolic heart failure -Currently she is on Lasix Coding Level of Care Code Acute Code for Chg Fwd Diagnoses Diastolic CHF I50.30 Acute respiratory failure with hypoxia J96.01 Goals of care, counseling/discussion Z71.89 Hilar adenopathy R59.0
[2022-12-02] VITALS (32 sets, daily range): BP systolic 94–166; BP diastolic 60–139; PULSE 9–118; RESP 16–25; TEMP 36.4–36.9; O2SAT 91–100
[2022-12-02] MEDS: ipratropium-albuterol 3 mL Neb INHALATION ×5 (01:19→22:55)
[2022-12-02] MEDS: acetaminophen 325 mg Tablet 650 MG PO (03:35)
[2022-12-02] MEDS: cyclobenzaprine 10 mg Tablet 5 MG PO ×2 (03:36→17:42)
[2022-12-02] MEDS: TRAMadol 50 mg Tablet PO ×3 (03:36→22:26)
[2022-12-02] MEDS: potassium chloride ER 10 mEq Tablet PO (08:25)
[2022-12-02] MEDS: carvedilol 6.25 mg Tablet PO (08:25)
[2022-12-02] MEDS: montelukast sodium 10 mg Tablet PO (08:25)
[2022-12-02] MEDS: FUROsemide 40 mg Tablet PO (08:26)
[2022-12-02] MEDS: levothyroxine 125 mcg Tablet PO (08:26)
[2022-12-02] MEDS: atorvastatin 40 mg Tablet PO (08:26)
[2022-12-02] MEDS: sennosides-docusate Tablet 1 TAB PO (08:26)
[2022-12-02] MEDS: aspirin 81 mg EC Tablet PO (08:27)
[2022-12-02] MEDS: lisinopril 20 mg Tablet 40 MG PO (08:27)
[2022-12-02] MEDS: magnesium oxide 400 mg tablet PO ×2 (08:27→17:35)
--- NOTE | 2022-12-02 10:41 | ANES.PREANE2 ---
Pre-Anesthetic Assessment Height/Weight: Height 1.5 m Weight 107.32 kg Temp Pulse Resp BP Pulse Ox O2 Del Method O2 Flow Rate 97.5 F L 95 20 H 98/65 100 4 12/02/22 10:29 12/02/22 10:29 12/02/22 10:29 12/02/22 10:29 12/02/22 10:29 12/02/22 10:29 12/02/22 10:29 FiO2 30 12/02/22 01:19 Preop Diagnosis: lung mass Operation Date: 12/02/22 11:00 Proposed Procedures p Bronchoscopy(Not Applicable) - Horacio Esteban MD s Ebus(Not Applicable) - Horacio Ortega DatarMD Was Beta Bekah taken within 24 hours: Yes Was Clonidine taken within 24 hours: N/A Social No alcohol and No tobacco Exam alert, oriented x 3, clear to auscultation bilaterally and regular rate & rhythm Airway Submandibular: within normal limits Cervical ROM: within normal limits Mallampati: Class I Dentition: full Pulmonary respiratory failure with hypoxia. currently on 4 L NC. lungs coarse with inspiratory and expiratory wheezes. CV/HEM Congestive Heart Failure and Murmur LVH. diastolic HF. cardiology following Metabolic Morbid Obesity [facility] [place] Lower Back Pain Neuropsych Anxiety and Depression Anesthetic Plan ASA status: 4 Anesthesia: Anesthesia Evaluation and General Risk of > 500 ml blood loss (7ml/kg in children): Yes, adequate IV access and fluids planned Other Pertinent Information thorough risk/benefit discussion with patient and daughter. Patient agrees to intraoperative resuscitative measures including medications and ventilatory support but not chest compressions. Medications/Allergies Home Medications Medication Instructions Recorded Confirmed Last Taken Type atenolol 50 mg tablet 50 mg PO DAILY 01/10/20 11/26/22 Unknown History fexofenadine 60 mg tablet (Omaira 60 mg PO DAILY PRN Allergy Symptoms 01/10/20 11/26/22 Unknown History Allergy) primidone 50 mg tablet (Mysoline) 50 mg PO QID 01/10/20 11/26/22 Unknown History tramadol 50 mg tablet 50 mg PO QID PRN Pain 01/10/20 11/26/22 Unknown History fluvoxamine 100 mg tablet See Rx Instructions .Route 08/24/22 11/26/22 Unknown Rx .COMPLEX #60 tabs trazodone 150 mg tablet See Rx Instructions .Route 08/24/22 11/26/22 Unknown Rx .COMPLEX #60 tabs fluvoxamine 50 mg tablet 50 mg PO BEDTIME 11/13/22 11/25/22 Unknown History levothyroxine 125 mcg tablet 125 mcg PO DAILY 11/13/22 11/26/22 Unknown History montelukast 10 mg tablet 10 mg PO DAILY 11/13/22 11/26/22 Unknown History albuterol sulfate 90 mcg/actuation 2 inh inhalation Q8H PRN shortness 11/14/22 11/26/22 Unknown Rx aerosol inhaler of breath or wheezing #8.5 grams furosemide 20 mg tablet (Lasix) 20 mg PO DAILY #60 tabs 11/14/22 11/26/22 Unknown Rx lisinopril 10 mg tablet 20 mg PO DAILY #60 tabs 11/14/22 11/26/22 Unknown Rx potassium chloride 10 mEq 10 meq PO DAILY #60 tabs 11/14/22 11/26/22 Unknown Rx tablet,extended release Allergies Allergy/AdvReac Type Severity Reaction Status Date / Time clarithromycin [From Biaxin] Allergy Unknown Unknown Verified 11/12/22 17:05 levofloxacin [From Levaquin] Allergy Unknown unk Verified 11/12/22 17:05 Sulfa (Sulfonamide Allergy Unknown unk Verified 11/12/22 17:05 Antibiotics) cheese Allergy ALGY-Nasal Verified 12/02/22 08:33 Discharge codeine AdvReac ADR-Nausea Verified 11/12/22 22:50 Current Medications Generic Name Dose Route Start Last Admin Trade Name Freq PRN Reason Stop Dose Admin Acetaminophen 650 mg 11/25/22 19:56 12/02/22 03:35 Acetaminophen 325 Mg Tablet PO 650 mg Q6H PRN Administration Mild/Mod Pain Or Temp >/= 101 Albuterol/Ipratropium 3 ml 11/25/22 20:54 12/02/22 08:00 Ipratropium-Albuterol 3 Ml Neb INHALATION 3 ml Q4H PRN Administration SHORTNESS OF BREATH Amoxicillin/Clavulanate Potassium 1 tab 11/29/22 18:00 12/01/22 17:44 Amoxicillin-Clav 875-125 Mg Tablet PO 1 tab BID REBECCA Administration Protocol Aspirin 81 mg 11/26/22 09:00 12/02/22 08:27 Aspirin 81 Mg Ec Tablet PO 81 mg DAILY REBECCA Administration Atorvastatin Calcium 40 mg 11/26/22 09:00 12/02/22 08:26 Atorvastatin 40 Mg Tablet PO 40 mg DAILY REBECCA Administration Carvedilol 6.25 mg 11/27/22 18:00 12/02/22 08:25 Carvedilol 6.25 Mg Tablet PO 6.25 mg BID REBECCA Administration Cyclobenzaprine HCl 5 mg 11/27/22 11:03 12/02/22 03:36 Cyclobenzaprine 10 Mg Tablet PO 5 mg BID PRN Administration MUSCLE SPASMS Enoxaparin Sodium 40 mg 11/25/22 21:00 12/01/22 12:11 Enoxaparin 40 Mg/0.4 Ml Syringe SUBCUT Not Given Q24H [facility] Furosemide 40 mg 11/30/22 08:00 12/02/22 08:26 Furosemide 40 Mg Tablet PO 40 mg DAILY@0800 REBECCA Administration Levothyroxine Sodium 125 mcg 11/26/22 09:00 12/02/22 08:26 Levothyroxine 125 Mcg Tablet PO 125 mcg DAILY [facility] Administration Lisinopril 40 mg 11/28/22 09:00 12/02/22 08:27 Lisinopril 20 Mg Tablet PO 40 mg DAILY [facility] Administration Magnesium Oxide 400 mg 11/27/22 18:00 12/02/22 08:27 Magnesium Oxide 400 Mg Tablet PO 400 mg BID [facility] Administration Montelukast Sodium 10 mg 11/26/22 09:00 12/02/22 08:25 Montelukast Sodium 10 Mg Tablet PO 10 mg DAILY REBECCA Administration Morphine Sulfate 1 mg 11/25/22 21:22 12/01/22 02:26 Morphine 4 Mg/Ml Sdv 1 Ml IVP 1 mg Q4H PRN Administration SEVERE PAIN Nystatin 1 applic 11/28/22 18:00 12/01/22 17:45 Nystatin Powder 15 Gm Btl TOPICAL 1 applic BID [facility] Administration Polyethylene Glycol 17 gm 11/27/22 17:00 12/02/22 08:28 Polyethylene Glycol 3350 Pkt 17 Gm PO 12/02/22 23:59 Not Given DAILY [facility] Potassium Chloride 10 meq 11/26/22 09:00 12/02/22 08:25 Potassium Chloride Er 10 Meq Tablet PO 10 meq DAILY REBECCA Administration Primidone 300 mg 11/25/22 21:00 12/01/22 21:27 Primidone 50 Mg Tablet PO 300 mg BEDTIME REBECCA Administration Senna/Docusate Sodium 1 tab 11/28/22 09:00 12/02/22 08:26 Sennosides-Docusate Tablet PO 1 tab DAILY REBECCA Administration Tramadol HCl 50 mg 11/25/22 20:54 12/02/22 03:36 Tramadol 50 Mg Tablet PO 50 mg QID PRN Administration Pain Trazodone HCl 150 mg 11/26/22 21:00 12/01/22 21:27 Trazodone 150 Mg Tablet PO 150 mg BEDTIME REBECCA Administration [facility] Anesthesia Medical History Acute respiratory failure with hypoxia Hypoxia Major depressive disorder, recurrent, in full remission New onset of congestive heart failure Psychiatric care Shortness of breath Upper respiratory infection Surgical History History of right knee surgery Family History Other Hypertension Social History Smoking and tobacco status: never smoked Alcohol intake: never Data Anesthesia 11/30/22 04:56 11/30/22 04:56 COVID Results 12/01/22 08:40 Coronavirus 229E (PCR) Not detected SARS-CoV-2 (PCR) Not detected Cardiac Studies: Echocardiogram 11/13/22 Echocardiogram Limited Views 11/26/22
[2022-12-02] MEDS: sodium chloride 0.9% 1,000 ML 30 ML IV (10:42)
[2022-12-02] MEDS: EPINEPHrine 1 mg/mL INJ XX (12:55)
--- NOTE | 2022-12-02 13:34 | PC.SOCIAL ---
IMM Update pg 2 of IMM updated and reviewed w/ patient's daughter. Copy provided and copy in chart dated and initialed.
--- NOTE | 2022-12-02 13:56 | PM.OP ---
Operative Report Date of procedure: December 02, 2022 Pre-op diagnosis: Preop Diagnosis lung mass Post-op diagnosis: Suspicious malignancy Procedure done: 13740 Dx Bronchoscope w/Washings or airway inspection 27998 Dx Bronchoscope w/BAL 62888 Dx Bronchoscopy w/Bronchial or Endobronchial biopsy(s), single or multiple sites 28701 Bronchoscopy w/ therapeutic aspiration of the tracheobronchial tree (clearance of airway secretions, removal of mucus plugs) 63791 EBUS Sampling 1/2 nodes Brief History: Shellie Odell is a 82 year old female with a past medical history of morbid obesity, history of tremor, history of depression, hypothyroidism, hyperlipidemia, mild LVH, diastolic CHF, recently discharged from [facility] for diastolic CHF exacerbation, discharged on 2 L oxygen admitted for diastolic CHF exacerbation. Patient had a CT chest which showed left hilar mass and lymph nodes in the mediastinum Pulmonary consulted for bronchoscopic evaluation of left hilar mass and mediastinal masses She is on 4 L nasal cannula Yesterday patient denied any smoking history, however her family members today reported that she had smoking history but quit to several years ago.? Patient is currently? optimized and will be discharged with 1 to 2 days.? She would want to know if it is a malignancy and agreed to go for bronchoscopic evaluation. Procedure: Procedure: 04766 Dx Bronchoscope w/Washings or airway inspection 76021 Dx Bronchoscope w/BAL 10947 Bronchoscopy w/ therapeutic aspiration of the tracheobronchial tree (clearance of airway secretions, removal of mucus plugs) 52941 EBUS Sampling 1/2 nodes Indication: Left hilar mass and mediastinal lymphadenopathy on CT chest suspicious for malignancy Anesthesia: General anesthesia. Local anesthesia: The kash in the right and left mainstem bronchi were anesthetized with 1% lidocaine, 3 mL. Description of the procedure: The procedure was explained to the patient and the consent was obtained.? The patient was brought to the OR.? The patient underwent laryngeal mask airway for general anesthesia.? Following induction of general anesthesia, the bronchoscope was advanced through the laryngeal mask airway.? 1 mL 1% lidocaine instilled on the vocal cords.? Both vocal cords are well visualized and they are mobile.? The trachea mucosa appeared normal, no endotracheal lesion was seen.? The kash was sharp.? The kash, the right and left mainstem bronchi are anesthetized with 1% lidocaine.? In a systematic manner bilateral bronchial tree was then examine(26607).? The bronchoscope was introduced into the right mainstem bronchus.? The right upper lobe, the right middle lobe and right lower lobe bronchi were examined up to the third subsegmental level and it appeared that endobronchial mucosa is normal. No endobronchial lesions noted. There were some mucus secretions which were suctioned right away.(46950) The bronchoscope was then advanced into the left mainstem bronchus.? The mucosa appeared normal with no endobronchial lesions.however when the scope reached the distal left mainstem bronchus there is an obvious endobronchial lesion protruding at the entrance of left lower lobe, 90% occlusion of the airway. There was grade 1 bleeding when it came in contact with bronchoscope. The left upper lobe, lingula were examined up to the third subsegmental level and no abnormalities were identified.? There were some clear secretions in lower lobe-which were suctioned right away.(12098) The bronchoscope was retracted and endobronchial ultrasound was introduced.? Accessed lymph node station 4L and 1 pass was sent for TEX and preliminary pathology diagnosis was suspicious for malignancy.? After taking 2 more passes from 4L and making sure we have enough tissue in the specimen bottle, station 7 was accessed and 2 passes for FNA C were taken. EBUS was retracted and flexible bronchoscope reintroduced. There was grade 2 bleeding, initially suctioned and there was mild active bleeding. After wedging flexible bronchoscope in the endobronchial mass occluding entrance of left lower lobe-bronchoalveolar lavage was obtained by instilling 30 cc normal saline-fluid return was 15 cc. The fluid was mixed with blood. Instilled 10 cc diluted epinephrine and 5 cc cold saline to control breakthrough. After making sure there is no significant bleeding-bronchoscope was retracted and procedure terminated. Samples: A.? Bronchoalveolar lavage specimen (26003 ) from left lower lobe?was sent for gram stain, culture and cytology B.? Station 4L-EBUS FNA C ? 1.? Total of 3 passes were made using needle aspiration(57436); 1 pass used for touch prep - reported positive for malignant cells; remaining material was placed in formalin for histopathology C.Station 7-EBUS FNA C ? 1.? Total of 2 passes were made using needle aspiration(66505); 1 pass used for touch prep - reported positive for malignant cells; remaining material was placed in formalin for histopathology Complications: None. Updated preliminary diagnosis to the patient's family. Patient will be transferred to [facility]. Hospitalist planning to discharge patient to assisted tomorrow. I have told family that I will call to update biopsy results and will make an appointment as outpatient if they wish to come.
--- NOTE | 2022-12-02 14:10 | SUR.PHASEI ---
Pt was transfered to PACU by Ang Prieto CRNA and Yolanda Rosenberg [employer]TAIN [employer]ER and recovered by myself.
--- NOTE | 2022-12-02 14:16 | ANE.PACU2 ---
Inpatient post-anesthesia follow up: Airway intact: Yes Vital signs: Temperature 97.6 F Pulse Rate 86 Respiratory Rate 16 Blood Pressure 113/72 Pulse Oximetry 92 Oxygen Delivery Me thod BiPAP Oxygen Flow Rate 10 Fraction of Inspir ed Oxygen 30 Hydration adequate: Yes Nausea and vomiting: No Pain level: 1 Mental status: Baseline Additional Comments: On BiPAP in PACU, oxygenation a little below baseline, mild sedation
[2022-12-02 15:27] LABS: Cyto Order Verification Order Verified
[2022-12-02 15:28] LABS: Apprearance, Bronch Wash Bloody (CLEAR); Color, Bronc Wash Red
--- NOTE | 2022-12-02 15:42 | PM.PN ---
Subjective Subjective: Seen and examined this morning. Patient sitting up in chair appearing comfortable. She will be going for bronchoscopy at around 11 AM today. Family at bedside Vitals/I&O/Wt Last Vital Signs Temp 98.0 F 12/02/22 15:34 Pulse 83 12/02/22 15:34 Resp 19 H 12/02/22 15:34 BP 112/76 12/02/22 15:34 Pulse Ox 96 12/02/22 15:34 O2 Del Method 12/02/22 13:45 O2 Flow Rate 10 12/02/22 12:57 FiO2 30 12/02/22 14:54 12/02/22 12/02/22 12/02/22 06:59 14:59 22:59 Intake Total 0 / 0 Output Total 200 / 200 0 / 0 Balance -200 / 980 0 / 0 Physical Exam Narrative: General: Alert oriented x3, sitting up in chair. No family at bedside today. HEENT: Normocephalic, atraumatic, EOMI, Cardio: Normal S1-S2, rate regular Respiratory: Crackles b/l at bases GI: Abdomen soft, nontender, obese rounded abdomen bowel sounds + Extremities: Trace bilateral pitting edema lower extremities. Urinary Catheter Management: Macario: Cath Placed During This Visit: yes Reason for Continuing Indwelling Catheter: Acute Urinary Retention or Obstruction Urinary Catheter Date of Insertion: 11/25/22 Urinary Catheter Time of Insertion: 21:20 Data 11/30/22 04:56 11/30/22 04:56 A&P Assessment and plan (1) Mild concentric left ventricular hypertrophy (LVH): (2) Diastolic CHF: (3) Morbid obesity: (4) Congestive heart failure: Qualifiers: Heart failure chronicity: acute on chronic Heart failure type: diastolic Qualified Code(s): I50.33 - Acute on chronic diastolic (congestive) heart failure (5) Major depressive disorder, recurrent, in full remission: (6) Acute respiratory failure with hypoxia: Plan 82-year-old female who was readmitted to the hospital for management of diastolic CHF exacerbation, that she lives in an apartment, requires 2 L at baseline, this time with diastolic CHF exacerbation she requiring 3 L of oxygen, very lethargic and fatigued, she might need rehab if recommended by the PT, she gets short of breath after walking only 10-15 steps in her 1 bedroom apartment, echo revealed diastolic dysfunction, she also has tricuspid regurgitation.? Patient is stating she eats healthy diet, she has remained hypertensive throughout hospitalization which could be the cause of exacerbation #Diastolic CHF exacerbation #Acute on chronic hypo #Left ventricular hypertrophy #Morbid obesity #Depression #Obstructive sleep apnea must be ruled out as an outpatient. She has a sleep study. 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 1 L removed. Exudative by lights criteria. Most likely prior to 1 effusion. Discussed with pulmonology. We will treat with antibiotics at this time. Pulm with follow-up outpatient. -CT chest suspicious for malignancy. Patient to undergo bronch today. Will await pathology. She will need to f/u at pulm at discharge #Mild hyponatremia?improved ? Sodium 131 Cardiac diet Continue with thyroxine For uncontrolled hypertension: Continue lisinopril to 40 mg daily, continue Coreg dose,stop hydralazine 25 mg TID DNR/DNI Granddaughter at bedside updated. All questions answered. Attestations Medical Necessity Statement*: Observe in hospital post bronch procedure. Possible dc to NH in AM Coding Level of Care Code Acute Code for Chg Fwd Diagnoses Mild concentric left ventricular hypertrophy (LVH) I51.7 Diastolic CHF I50.30 Morbid obesity E66.01 Congestive heart failure I50.33 Heart failure chronicity: acute on chronic Heart failure type: diastolic Major depressive disorder, recurrent, in full remission F33.42 Acute respiratory failure with hypoxia J96.01
[2022-12-02 15:49] LABS: Total Cells Counted Bronch 200
[2022-12-02] MEDS: cetylpyridinium Lozenge 1 EACH MUCOUS MEM (17:53)
[2022-12-02] MEDS: nystatin powder 15 gm Btl 1 APPLIC TOPICAL (17:56)
[2022-12-02] MEDS: amoxicillin-clav 875-125 mg Tablet 1 TAB PO (19:40)
[2022-12-02] MEDS: enoxaparin 40 mg/0.4 mL Syringe SUBCUT (20:09)
[2022-12-02] MEDS: primidone 50 mg Tablet 300 MG PO (20:09)
--- NOTE | 2022-12-02 22:47 | PC.NURSE ---
Patient attempted to wear bipap this evening however is unable to keep in place. Patient refusing to wear bipap at this time. RT to check patient.
[2022-12-03] VITALS (13 sets, daily range): BP systolic 116–154; BP diastolic 77–95; PULSE 102–119; RESP 18–35; TEMP 36.7–37.1; O2SAT 91–97
[2022-12-03 05:46] LABS: Basophils # 0.1 10^3/uL (0.0-0.1); Basophils % 0.6 %; Eosinophils # 0.2 10^3/uL (0.0-0.8); Eosinophils % 3.1 %; Hematocrit 34.6 % (37.0-47.0); Hemoglobin 10.9 g/dL (11.5-15.3); Lymphocytes % 13.3 %; Mean Corpuscular HGB Conc 31.5 g/dL (30.0-36.0); Mean Corpuscular Hemoglobin 29.6 pg (28.0-34.0); Mean Platelet Volume 10.6 fL (7.4-10.4); Monocytes # 0.9 10^3/uL (0.2-0.9); Monocytes % 11.9 %; Neutrophils # 5.47 10^3/uL (1.8-7.7); Neutrophils % 70.6 %; Nucleated Red Blood Cells % 0 %; Platelet Count 271 10^3/cmm (130-400); Red Blood Count 3.68 10^6/uL (4.1-5.3); Red Cell Distribution Width 12.8 % (12.1-15.1); White Blood Count 7.8 10^3/uL (4.0-10.0)
[2022-12-03 06:05] LABS: Anion Gap 14.8 (5-19); Blood Urea Nitrogen 25 mg/dL (8-23); Calcium 8.9 mg/dL (8.5-10.5); Carbon Dioxide 30 mmol/L (22-29); Chloride 90 mmol/L (98-107); Glucose 124 mg/dL (65-115); Magnesium 2.2 mg/dL (1.7-2.3); Osmolality Calculated 274 mOsm/kg (285-295); Potassium 5.8 mmol/L (3.5-5.1); Sodium 129 mmol/L (136-145)
[2022-12-03] MEDS: aspirin 81 mg EC Tablet PO (07:51)
[2022-12-03] MEDS: sennosides-docusate Tablet 1 TAB PO (07:51)
[2022-12-03] MEDS: magnesium oxide 400 mg tablet PO ×2 (07:51→17:04)
[2022-12-03] MEDS: atorvastatin 40 mg Tablet PO (07:51)
[2022-12-03] MEDS: montelukast sodium 10 mg Tablet PO (07:52)
[2022-12-03] MEDS: TRAMadol 50 mg Tablet PO ×3 (07:52→20:37)
[2022-12-03] MEDS: FUROsemide 40 mg Tablet PO (07:52)
[2022-12-03] MEDS: levothyroxine 125 mcg Tablet PO (07:52)
[2022-12-03] MEDS: cyclobenzaprine 10 mg Tablet 5 MG PO ×2 (07:53→20:38)
[2022-12-03] MEDS: amoxicillin-clav 875-125 mg Tablet 1 TAB PO ×2 (08:03→17:04)
--- NOTE | 2022-12-03 08:12 | ECG_ITS ---
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 Measurements Intervals [place] Rate: 107 P: 22 MS: 144 QRS: -11 QRSD: 94 T: 68 QT: 313 QTc: 419 Interpretive Statements SINUS TACHYCARDIA LOW QRS VOLTAGE IN PRECORDIAL LEADS [QRS DEFLECTION < 1.0 mV IN CHEST LEADS] POSSIBLE ANTERIOR MYOCARDIAL INFARCTION , OF INDETERMINATE AGE [30 ms Q WAVE IN V3/V4, OR R < 0.2 mV IN V4] Compared to ECG 11/25/2022 20:37:10 Low QRS voltage now present Myocardial infarct finding now present Sinus rhythm no longer present Left ventricular hypertrophy no longer present T-wave abnormality no longer present Electronically Signed On 12-03-2022 9:14:37 CATERING DIRECTOR by Manju Macias M.D. [email or web address]
[2022-12-03] MEDS: sodium polystyrene sulfonate 15 gm/60 mL Btl PO (08:46)
[2022-12-03] MEDS: insulin regular-human 10 UNIT in SYRINGE 1 EACH IVP (08:46)
[2022-12-03] MEDS: ipratropium-albuterol 3 mL Neb INHALATION ×2 (09:29→21:11)
--- NOTE | 2022-12-03 12:21 | PM.PN ---
Subjective Subjective: No acute events overnight Refused to wear BiPAP yesterday night Currently she is on 4 to 5 L nasal cannula and saturating good Labs reviewed hyperkalemia 5.8-she is being treated for that -Respiratory standpoint she appears comfortable Medications: Reviewed: Yes Vitals/I&O/Wt Last Vital Signs Temp 98.4 F 12/03/22 07:11 Pulse 111 H 12/03/22 09:31 Resp 19 H 12/03/22 09:31 BP 132/82 12/03/22 07:11 Pulse Ox 94 12/03/22 09:31 O2 Del Method 12/03/22 09:31 O2 Flow Rate 3 12/03/22 09:31 FiO2 30 12/02/22 20:51 12/02/22 12/03/22 12/03/22 22:59 06:59 14:59 Intake Total 840 / 840 290.1 / 290.1 Balance 840 / 840 290.1 / 290.1 Physical Exam Narrative: General: alert, morbidly obese, not in acute distress-on 4 L nasal cannula HEENT: conj clear, EOMI, PERRL, mmm, Neck: supple, no meningismus Heme: no cervical LAP Respiratory: Inspection: No visible deformity of the chest wall Palpation: Trachea is mildly deviated to the right, bilateral symmetric expansion Percussion: Bilateral tympanic percussion note both anterior and posteriorly Auscultation: Reduced breath sounds on left lung bilateral lower lobe crackles Cardiovascular: rrr, nl s1s2, no mrg Abdomen: soft, nt, nd, no r/g, bs+ Extremities: pulses +, no edema, no c/c : no CVA tenderness Skin: intact, no rash MSK: no back or neck pain Neurologic: grossly intact Urinary Catheter Management: Macario: Cath Placed During This Visit: yes Reason for Continuing Indwelling Catheter: Acute Urinary Retention or Obstruction Urinary Catheter Date of Insertion: 11/25/22 Urinary Catheter Time of Insertion: 21:20 Data 12/03/22 05:40 12/03/22 05:40 Other Labs: Radiology Impressions Thoracentesis Ultrasound 11/28/22 12:12 IMPRESSION: Uncomplicated ultrasound-guided LEFT thoracentesis with removal of [address] 11/29/22 14:57 IMPRESSION: 1. Lack of IV contrast causes significant limitation of this examination to evaluate for adenopathy and neoplasm. 2. Dense area of consolidation and masslike configuration centered at the LEFT hilum extending into the LEFT lower lobe. Highly suspicious for LEFT hilar mass. 3. Small LEFT pleural effusion. 4. LEFT visceral and parietal nodules suspicious for metastatic pleural-based disease. 5. Enlarged mediastinal and hilar lymph nodes. Suspect metastatic disease. 6. Abnormal liver. Metastatic disease diffusely throughout the liver or focally in the RIGHT lower lobe suspected. 7. Recommendation: CT chest, abdomen and pelvis with IV and oral contrast is recommended. If this CT cannot be performed recommend bronchoscopy and RIGHT upper quadrant ultrasound. Chest X-Ray 11/30/22 10:02 IMPRESSION: 1. Low lung volumes 2. Left perihilar interstitial congestion . 3. Left lower lobe pleural effusion Abdomen Ultrasound 12/01/22 11:00 IMPRESSION: 1. Mildly enlarged but very heterogeneous liver. No mass is identified. Study is limited by body habitus. 2. Cholelithiasis without acute cholecystitis. 3. Poorly visualized LEFT kidney. No hydronephrosis. 4. Bilateral renal cysts. Laboratory Results WBC 7.8 10^3/uL (4.0-10.0) 12/03/22 05:40 RBC 3.68 10^6/uL (4.1-5.3) L 12/03/22 05:40 Hgb 10.9 g/dL (11.5-15.3) L 12/03/22 05:40 Hct 34.6 % (37.0-47.0) L 12/03/22 05:40 MCV 94.0 fl (81-99) 12/03/22 05:40 MCH 29.6 pg (28.0-34.0) 12/03/22 05:40 MCHC 31.5 g/dL (30.0-36.0) 12/03/22 05:40 RDW 12.8 % (12.1-15.1) 12/03/22 05:40 Plt Count 271 10^3/cmm (130-400) 12/03/22 05:40 MPV 10.6 fL (7.4-10.4) H 12/03/22 05:40 Neut % (Auto) 70.6 % 12/03/22 05:40 Lymph % (Auto) 13.3 % 12/03/22 05:40 Bent % (Auto) 11.9 % 12/03/22 05:40 Eos % (Auto) 3.1 % 12/03/22 05:40 Baso % (Auto) 0.6 % 12/03/22 05:40 Neut # (Auto) 5.47 10^3/uL (1.8-7.7) 12/03/22 05:40 Lymph # (Auto) 1.0 10^3/uL (0.8-4.8) 12/03/22 05:40 Bent # (Auto) 0.9 10^3/uL (0.2-0.9) 12/03/22 05:40 Eos # (Auto) 0.2 10^3/uL (0.0-0.8) 12/03/22 05:40 Baso # (Auto) 0.1 10^3/uL (0.0-0.1) 12/03/22 05:40 Nucleated RBC % (auto) 0 % 12/03/22 05:40 Total Counted Not Reportable 11/28/22 14:45 Nucleated RBCs # 0.0 /100WBC 12/03/22 05:40 PT 15.00 SECONDS (12.1-14.9) H 11/28/22 13:55 INR 1.15 (0.8-1.2) 11/28/22 13:55 Sodium 129 mmol/L (136-145) L 12/03/22 05:40 Potassium 5.8 mmol/L (3.5-5.1) H 12/03/22 05:40 Chloride 90 mmol/L (98-107) L 12/03/22 05:40 Carbon Dioxide 30 mmol/L (22-29) H 12/03/22 05:40 Anion Gap 14.8 (5-19) 12/03/22 05:40 BUN 25 mg/dL (8-23) H 12/03/22 05:40 Creatinine 1.0 mg/dL (0.5-0.9) H 12/03/22 05:40 GFR Calculation Not Reportable 12/03/22 05:40 Glucose 124 mg/dL (65-115) H 12/03/22 05:40 Calculated Osmolality 274 mOsm/kg (285-295) L 12/03/22 05:40 Lactic Acid 1.3 mmol/L (0.5-2.2) 11/25/22 18:51 Calcium 8.9 mg/dL (8.5-10.5) 12/03/22 05:40 Magnesium 2.2 mg/dL (1.7-2.3) 12/03/22 05:40 Lactate Dehydrogenase 401 U/L (135-214) H 11/28/22 19:40 Troponin T Baseline 44 ng/L (0-10) H 11/25/22 18:51 Troponin T 120 Minute 65.52 ng/L (0-10) H 11/25/22 20:15 Delta Troponin T 21.52 ABS# (0-10) H* 11/25/22 20:15 Troponin T Hi Sens 6Hr 57.19 ng/L (0-10) H 11/26/22 01:05 Troponin T Hi Sens 6Hr Delta 13.19 ng/L (0-12) H* 11/26/22 01:05 C-Reactive Protein 86.7 mg/L (0.0-4.9) H 11/26/22 01:05 NT-Pro-B Natriuret Pep 1958 pg/mL (0-450) H 11/26/22 01:05 Total Protein 6.3 g/dL (6.6-8.7) L 11/28/22 19:40 Procalcitonin 0.72 ng/mL (0-0.5) H 11/26/22 01:05 Pleural Color Red (Pale Yellow) H 11/28/22 14:45 Pleural Appearance Bloody (CLEAR) 11/28/22 14:45 Pleural pH 8.00 (6.5-7.5) H 11/28/22 14:45 Pleural Spec [place] 1.010 11/28/22 14:45 Pleural WBC 1158.000 /uL (0-1000) H 11/28/22 14:45 Pleural RBC 558.000 10^3/uL 11/28/22 14:45 Pleural Mononuc # Auto 0.947 10^3/uL 11/28/22 14:45 Pleural Other Cells Not Reportable 11/28/22 14:45 Pleural Polynuclear % 18 % 11/28/22 14:45 Pleural Polynuclear # 0.211 10^3/uL 11/28/22 14:45 Pleural Mononuclear % 82 % 11/28/22 14:45 Pleural Other Cells Lt Left lung 11/28/22 14:45 Pleural Total Protein 3.8 g/dL 11/28/22 14:45 Pleural Albumin 2.4 g/dL 11/28/22 14:45 Pleural LDH 280 U/L 11/28/22 14:45 Pleural Glucose 222.0 mg/dL 11/28/22 14:45 Pleural Triglycerides 48 mg/dL 11/28/22 14:45 Pleur Adenosine Deamin 26.2 U/L (<9.2) H 11/28/22 14:45 Bronch Specimen Source Left lower lobe 12/02/22 12:28 Bronchial Fluid Color Red 12/02/22 12:28 Bronchial Fluid Appearance Bloody (CLEAR) 12/02/22 12:28 Bronchial Fluid WBC 4 /uL 12/02/22 12:28 Bronchial Fluid RBC 38 10^3/uL 12/02/22 12:28 Bronch Cells Counted 200 12/02/22 12:28 Bronchial Neutrophils 74.00 % (0.9-2.3) H 12/02/22 12:28 Bronchial Lymphocytes 16.00 % (10.71-12.91) H 12/02/22 12:28 Bronchial Eosinophils 4.00 % (0.13-0.25) H 12/02/22 12:28 Bronchial Macrophages 5.00 % (83.6-86.8) L 12/02/22 12:28 Coronavirus 229E (PCR) Not detected (NOT DETECT) 12/01/22 08:40 Influenza Type A Ag negative (Negative) 11/25/22 18:26 Influenza Type B Ag negative (Negative) 11/25/22 18:26 SARS-CoV-2 (PCR) Not detected (NOT DETECT) 12/01/22 08:40 SARS-CoV-2 Ag (Rapid) Negative (Negative) 11/25/22 18:26 Path Cons w/Slide Yes 11/28/22 14:45 A&P Assessment and plan (1) Diastolic CHF: (2) Acute respiratory failure with hypoxia: (3) Goals of care, counseling/discussion: (4) Hilar adenopathy: Plan #Left hilar mass and hilar adenopathy seen on CT chest -Yesterday she had a endobronchial ultrasound-guided biopsies of 4L and station 7-prelim report suspicious for malignancy-final pathology reports will be available next week-family is aware that I am going to call them with biopsy results -There is an endobronchial lesion occluding 90% of left lower lobe airway most likely contributing to atelectasis and left pleural effusion -On November 28, 2022-1000 cc bloody fluid was removed-it is lymphocytic predominant exudative-cytology negative for malignancy -Patient agreed with the procedure as she would want to know her diagnosis before going to [place] [facility] as it is difficult to come back again for the procedure as outpatient. #Acute on chronic hypoxic respiratory failure secondary to CHF exacerbation -Currently requiring 4 to 5 L nasal cannula -She is on Lasix #Hyperkalemia 5.8 -Currently patient is on Lasix -She was given IV insulin plus glucose for hyperkalemia; she is also getting better agonist nebulizations -Monitor potassium #Rest of the comorbidities managed as per hospitalist Attestations Medical Necessity Statement*: I am going to sign off; discharge plan deferred to hospitalist Time Spent in Patient Care: Greater than 35 minutes (>than 50% of time spent in counselling and/or direct pt care on unit). Coding Level of Care Code Established Pt Acute Code for Chg Fwd Patient Type Established History Comprehensive Exam Comprehensive Medical Decision Making Moderate Complexity Diagnoses Diastolic CHF I50.30 Acute respiratory failure with hypoxia J96.01 Goals of care, counseling/discussion Z71.89 Hilar adenopathy R59.0 Time Spent (min) 15
--- NOTE | 2022-12-03 14:05 | P.PN_ITS ---
Subjective Subjective: Seen this AM. Hyperkalemic this morning. Potassium 5.8. Refused to wear BiPAP overnight. On 4 L nasal cannula at this time. Vitals/I&O/Wt Last Vital Signs Temp 98.4 F 12/03/22 07:11 Pulse 104 H 12/03/22 12:57 Resp 24 H 12/03/22 12:57 BP 130/80 12/03/22 12:57 Pulse Ox 95 12/03/22 12:57 O2 Del Method 12/03/22 09:31 O2 Flow Rate 3 12/03/22 09:31 FiO2 30 12/02/22 20:51 12/02/22 12/03/22 12/03/22 22:59 06:59 14:59 Intake Total 840 / 840 1010.1 / 1010.1 Balance 840 / 840 1010.1 / 1010.1 Physical Exam Narrative: General: Alert oriented x3, laying in bed family at bedside today. Slightly difficulty breathing. HEENT: Normocephalic, atraumatic, EOMI, Cardio: Normal S1-S2, rate regular Respiratory: Crackles b/l at bases GI: Abdomen soft, nontender, obese rounded abdomen bowel sounds + Extremities: Trace bilateral pitting edema lower extremities. Urinary Catheter Management: Macario: Cath Placed During This Visit: yes Reason for Continuing Indwelling Catheter: Acute Urinary Retention or Obstruction Urinary Catheter Date of Insertion: 11/25/22 Urinary Catheter Time of Insertion: 21:20 Data 12/03/22 05:40 12/03/22 05:40 A&P Assessment and plan (1) Mild concentric left ventricular hypertrophy (LVH): (2) Diastolic CHF: (3) Morbid obesity: (4) Congestive heart failure: Qualifiers: Heart failure chronicity: acute on chronic Heart failure type: diastolic Qualified Code(s): I50.33 - Acute on chronic diastolic (congestive) heart failure (5) Major depressive disorder, recurrent, in full remission: (6) Acute respiratory failure with hypoxia: Plan 82-year-old female who was readmitted to the hospital for management of diastolic CHF exacerbation, that she lives in an apartment, requires 2 L at baseline, this time with diastolic CHF exacerbation she requiring 3 L of oxygen, very lethargic and fatigued, she might need rehab if recommended by the PT, she gets short of breath after walking only 10-15 steps in her 1 bedroom apartment, echo revealed diastolic dysfunction, she also has tricuspid regurgitation.? Patient is stating she eats healthy diet, she has remained hypertensive throughout hospitalization which could be the cause of exacerbation #Diastolic CHF exacerbation #chronic hypoxia #Left ventricular hypertrophy #Morbid obesity #Depression #Obstructive sleep apnea must be ruled out as an outpatient. She has a sleep study. 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 Likely related to uncontrolled hypertension Optimize antihypertensive regimen Echo did not show significant reduction in EF but limited view Work with PT Currently on 3 L of oxygen Continue Lasix 40 oral daily Thoracentesis completed and 1 L removed which was bloody appearing and exudative. CT chest did show left hilar mass and hilar adenopathy. Patient had endobronchial ultrasound and biopsies done preliminary report shows malignancy. Endobronchial lesion occluding 90% of left lower lobe most likely contributing to left pleural effusion. Patient to follow-up with oncology and pulmonology as an outpatient Continue patient on BiPAP. Lasix 40 IV BID today Hyperkalemia 5.8 Continue Lasix Insulin plus dextrose Kayexalate x1. Will check EKG. #Mild hyponatremia ? Sodium 129 this morning. 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 Cardiac diet Continue with thyroxine For uncontrolled hypertension: Continue lisinopril to 40 mg daily, continue Coreg dose,stop hydralazine 25 mg TID DNR/DNI Granddaughter at bedside updated. All questions answered. Attestations Medical Necessity Statement*: Discharge to senior living on Monday. Coding Level of Care Code Acute Code for Chg Fwd Diagnoses Mild concentric left ventricular hypertrophy (LVH) I51.7 Diastolic CHF I50.30 Morbid obesity E66.01 Congestive heart failure I50.33 Heart failure chronicity: acute on chronic Heart failure type: diastolic Major depressive disorder, recurrent, in full remission F33.42 Acute respiratory failure with hypoxia J96.01
[2022-12-03] MEDS: FUROsemide 10 mg/mL SDV 4mL 40 MG IVP (15:59)
[2022-12-03] MEDS: nystatin powder 15 gm Btl 1 APPLIC TOPICAL ×2 (16:00→21:02)
[2022-12-03 19:18] LABS: Anion Gap 12.3 (5-19); Blood Urea Nitrogen 24 mg/dL (8-23); Calcium 9.2 mg/dL (8.5-10.5); Carbon Dioxide 33 mmol/L (22-29); Chloride 90 mmol/L (98-107); Glucose 176 mg/dL (65-115); Osmolality Calculated 278 mOsm/kg (285-295); Potassium 5.3 mmol/L (3.5-5.1); Sodium 130 mmol/L (136-145)
[2022-12-03 20:28] LABS: Glucose Point of Care 195 mg/dL (70-110)
[2022-12-03] MEDS: primidone 50 mg Tablet 300 MG PO (20:38)
[2022-12-03] MEDS: enoxaparin 40 mg/0.4 mL Syringe SUBCUT (20:40)
[2022-12-04] VITALS (14 sets, daily range): BP systolic 113–152; BP diastolic 75–95; PULSE 105–114; RESP 18–26; TEMP 36.7–37.4; O2SAT 90–98
[2022-12-04 07:23] LABS: Blood Urea Nitrogen 22 mg/dL (8-23); Calcium 9.1 mg/dL (8.5-10.5); Carbon Dioxide 31 mmol/L (22-29); Chloride 90 mmol/L (98-107); Glucose 144 mg/dL (65-115); Osmolality Calculated 276 mOsm/kg (285-295); Sodium 130 mmol/L (136-145)
[2022-12-04 07:27] LABS: Anion Gap 14.1 (5-19); Potassium 5.1 mmol/L (3.5-5.1)
[2022-12-04] MEDS: ipratropium-albuterol 3 mL Neb INHALATION ×3 (07:42→21:12)
--- NOTE | 2022-12-04 07:53 | P.PN_ITS ---
Subjective Subjective: seen this am no acute events overnight appears comfortable laying in bed Vitals/I&O/Wt Last Vital Signs Temp 98.4 F 12/04/22 04:00 Pulse 105 H 12/04/22 07:53 Resp 18 12/04/22 07:44 BP 135/86 12/04/22 04:00 Pulse Ox 93 12/04/22 07:44 O2 Del Method 12/04/22 07:44 O2 Flow Rate 4 12/04/22 07:44 FiO2 30 12/02/22 20:51 12/03/22 12/04/22 12/04/22 22:59 06:59 14:59 Intake Total 999.1 Balance 999.1 Physical Exam Narrative: General: Alert oriented x3, laying in bed family at bedside today. HEENT: Normocephalic, atraumatic, EOMI, Cardio: Normal S1-S2, rate regular Respiratory: Crackles b/l at bases GI: Abdomen soft, nontender, obese rounded abdomen bowel sounds + Extremities: Trace bilateral pitting edema lower extremities. Urinary Catheter Management: Macario: Cath Placed During This Visit: yes Reason for Continuing Indwelling Catheter: Acute Urinary Retention or Obstruction Urinary Catheter Date of Insertion: 11/25/22 Urinary Catheter Time of Insertion: 21:20 Data 12/03/22 05:40 12/04/22 04:24 Micro: Microbiology 12/02/22 12:28 Gram Stain - Final Lung Left Lower Lobe A&P Assessment and plan (1) Mild concentric left ventricular hypertrophy (LVH): (2) Diastolic CHF: (3) Morbid obesity: (4) Congestive heart failure: Qualifiers: Heart failure chronicity: acute on chronic Heart failure type: diastolic Qualified Code(s): I50.33 - Acute on chronic diastolic (congestive) heart failure (5) Major depressive disorder, recurrent, in full remission: (6) Acute respiratory failure with hypoxia: Plan 82-year-old female who was readmitted to the hospital for management of diastolic CHF exacerbation, that she lives in an apartment, requires 2 L at baseline, this time with diastolic CHF exacerbation she requiring 3 L of oxygen, very lethargic and fatigued, she might need rehab if recommended by the PT, she gets short of breath after walking only 10-15 steps in her 1 bedroom apartment, echo revealed diastolic dysfunction, she also has tricuspid regurgitation.? Patient is stating she eats healthy diet, she has remained hypertensive throughout hospitalization which could be the cause of exacerbation #Diastolic CHF exacerbation #chronic hypoxia #Left ventricular hypertrophy #Morbid obesity #Depression #Obstructive sleep apnea must be ruled out as an outpatient. She has a sleep study. 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 Likely related to uncontrolled hypertension Optimize antihypertensive regimen Echo did not show significant reduction in EF but limited view Work with PT Currently on 3 L of oxygen Continue Lasix 40 oral daily Thoracentesis completed and 1 L removed which was bloody appearing and exudative. CT chest did show left hilar mass and hilar adenopathy. Patient had endobronchial ultrasound and biopsies done preliminary report shows malignancy. Endobronchial lesion occluding 90% of left lower lobe most likely contributing to left pleural effusion. Patient to follow-up with oncology and pulmonology as an outpatient Continue patient on BiPAP. Lasix 40 IV BID today Hyperkalemia 5.8 12/03 Continue Lasix Insulin plus dextrose Kayexalate x1. K 5.1 today 12/04 but sample slightly hemolyzed. #Mild hyponatremia ? Sodium 129 this morning. 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 Cardiac diet Continue with thyroxine For uncontrolled hypertension: Continue lisinopril to 40 mg daily, continue Coreg dose,stop hydralazine 25 mg TID DNR/DNI Granddaughter at bedside updated. All questions answered. Attestations Medical Necessity Statement*: [facility]charge to [facility] on Monday. Coding Level of Care Code Acute Code for [facility] Fwd Diagnoses Mild concentric left ventricular hypertrophy (LVH) I51.7 Diastolic CHF I50.30 Morbid obesity E66.01 Congestive heart failure I50.33 Heart failure chronicity: acute on chronic Heart failure type: diastolic Major depressive disorder, recurrent, in full remission F33.42 Acute respiratory failure with hypoxia J96.01
[2022-12-04] MEDS: aspirin 81 mg EC Tablet PO (09:53)
[2022-12-04] MEDS: sennosides-docusate Tablet 1 TAB PO (09:53)
[2022-12-04] MEDS: magnesium oxide 400 mg tablet PO ×2 (09:53→18:11)
[2022-12-04] MEDS: atorvastatin 40 mg Tablet PO (09:53)
[2022-12-04] MEDS: montelukast sodium 10 mg Tablet PO (09:53)
[2022-12-04] MEDS: FUROsemide 40 mg Tablet PO (09:53)
[2022-12-04] MEDS: levothyroxine 125 mcg Tablet PO (09:53)
[2022-12-04] MEDS: amoxicillin-clav 875-125 mg Tablet 1 TAB PO ×2 (10:04→18:11)
[2022-12-04] MEDS: nystatin powder 15 gm Btl 1 APPLIC TOPICAL (10:10)
--- NOTE | 2022-12-04 11:27 | PC.SOCIAL ---
IMM Update pg 2 of IMM updated and reviewed w/ patient. Copy provided and Copy in chart dated, and initialed.
[2022-12-04] MEDS: TRAMadol 50 mg Tablet PO (12:50)
--- NOTE | 2022-12-04 16:50 | ECG_ITS ---
[facility] Test Date: 2022-12-04 Pat Name: Shellie Odell Department: Room: 111 Gender: Female On Site [employer] Technician: : 1940 Requested By: Vanessa Will Order Number: [id number] Nida MD: Geovany Rivas M.D. Measurements Intervals [place] Rate: 108 P: 33 NM: 148 QRS: -3 QRSD: 95 T: 75 QT: 304 QTc: 408 Interpretive Statements SINUS TACHYCARDIA POSSIBLE ANTERIOR MYOCARDIAL INFARCTION , OF INDETERMINATE AGE [30 ms Q WAVE IN V3/V4, OR R < 0.2 mV IN V4] Compared to ECG 12/03/2022 08:12:25 No significant changes Electronically Signed On 12-06-2022 7:44:37 PSYCHOTHERAPIST COUNSELOR by Geovany Rivas M.D. [id number]
[2022-12-04] MEDS: morphine 4 mg/mL SDV 1 mL 1 MG IVP (20:55)
[2022-12-04] MEDS: primidone 50 mg Tablet 300 MG PO (20:59)
[2022-12-04] MEDS: cyclobenzaprine 10 mg Tablet 5 MG PO (21:00)
[2022-12-04] MEDS: enoxaparin 40 mg/0.4 mL Syringe SUBCUT (21:03)
[2022-12-05] VITALS (9 sets, daily range): BP systolic 122–154; BP diastolic 75–94; PULSE 102–115; RESP 18–28; TEMP 36.5–36.8; O2SAT 90–100
--- NOTE | 2022-12-05 07:11 | CT_ITS ---
WS: [id number] CTA OF THE CHEST WITH PULMONARY EMBOLISM PROTOCOL TECHNIQUE: High-resolution contrast enhanced CTA of the chest with coronal and sagittal reformatted i mages with pulmonary embolism protocol. MIP images are also reviewed. CLINICAL INFORMATION: sinus tachy COMPARISON: CT chest November 29, 2022 DLP: 548.[address] scans at [facility] use at least one of these dose optimization techniques: automated e xposure control; mA and/or kV adjustment per patient size (includes targeted exams where dose is matc hed to clinical indication); or iterative reconstruction. FINDINGS: Hepatomegaly with diffuse heterogeneous liver attenuation suspicious for metastatic disease. Ill-defi kristel lesions within both hepatic lobes. Splenic artery calcification. Small esophageal hiatal hernia. A few prominent lymph nodes in the upper abdomen. LEFT renal cyst. LEFT adrenal nodule or lymph node measuring 15 mm. Cardiomegaly. Normal caliber thoracic aorta. Aortic calcification. Progressed consolidation throughou t the LEFT lung. Moderate LEFT pleural effusion with nodular pleural-based soft tissue implants LEFT lower lobe parietal and visceral pleura suspicious for metastatic disease. LEFT hilar masslike consol idation similar to previous. Recommend further evaluation with bronchoscopy. Progressed LEFT upper an d LEFT lower lobe consolidation with air bronchograms. Proximal main pulmonary arteries are normal. Segmental and subsegmental pulmonary arteries not well v isualized due to breathing motion artifact. No definite evidence of pulmonary embolus. Left-sided pul monary arteries difficult to evaluate due to diffuse pleural fluid and consolidation. Thoracic kyphosis hypertrophic changes. CT/CT angio chest PE protcl [id number] IMPRESSION: 1. Proximal main pulmonary arteries are normal. Segmental and subsegmental pul monary arteries not well evaluated due to breathing artifact and LEFT lung cons olidation. 2. Progressed LEFT pleural effusion with airspace consolidation LEFT upper and lower lobes progressed compared to previous. 3. Nodular pleural-based soft tissue implants LEFT lower lobe parietal and vis ceral pleura suspicious for metastatic disease. 4. Additional hazy patchy infiltrate throughout the RIGHT lung. 5. Small pericardial effusion. 6. Masslike consolidation LEFT hilum similar to previous suspicious for neopla sm. Recommend further evaluation with bronchoscopy. 7. Enlarged anterior mediastinal and peribronchial lymph nodes. 8. Suspected diffuse metastasis throughout the liver. 9. No other significant interval changes.
[2022-12-05 07:20] LABS: SARS Covid-2 Antigen negative (Negative)
[2022-12-05 08:53] LABS: Basophils % 0.5 %; Eosinophils # 0.3 10^3/uL (0.0-0.8); Eosinophils % 3.2 %; Hemoglobin 10.7 g/dL (11.5-15.3); Lymphocytes # 1.2 10^3/uL (0.8-4.8); Lymphocytes % 14.3 %; Mean Corpuscular HGB Conc 31.5 g/dL (30.0-36.0); Mean Corpuscular Hemoglobin 30.1 pg (28.0-34.0); Mean Corpuscular Volume 95.8 fl (81-99); Mean Platelet Volume 10.7 fL (7.4-10.4); Monocytes % 11.7 %; Neutrophils # 5.97 10^3/uL (1.8-7.7); Neutrophils % 69.9 %; Nucleated Red Blood Cells % 0 %; Platelet Count 290 10^3/cmm (130-400); Red Blood Count 3.55 10^6/uL (4.1-5.3); Red Cell Distribution Width 12.8 % (12.1-15.1); White Blood Count 8.5 10^3/uL (4.0-10.0)
[2022-12-05 09:11] LABS: Blood Urea Nitrogen 23 mg/dL (8-23); Carbon Dioxide 31 mmol/L (22-29); Chloride 86 mmol/L (98-107); Glucose 195 mg/dL (65-115); Osmolality Calculated 271 mOsm/kg (285-295); Sodium 126 mmol/L (136-145)
[2022-12-05 09:14] LABS: Anion Gap 14.6 (5-19); Potassium 5.6 mmol/L (3.5-5.1)
[2022-12-05] MEDS: montelukast sodium 10 mg Tablet PO (09:38)
[2022-12-05] MEDS: TRAMadol 50 mg Tablet PO (09:38)
[2022-12-05] MEDS: levothyroxine 125 mcg Tablet PO (09:38)
[2022-12-05] MEDS: amoxicillin-clav 875-125 mg Tablet 1 TAB PO (09:38)
[2022-12-05] MEDS: aspirin 81 mg EC Tablet PO (09:39)
[2022-12-05] MEDS: FUROsemide 40 mg Tablet PO (09:39)
[2022-12-05] MEDS: magnesium oxide 400 mg tablet PO (09:39)
[2022-12-05] MEDS: sennosides-docusate Tablet 1 TAB PO (09:39)
[2022-12-05] MEDS: atorvastatin 40 mg Tablet PO (09:39)
[2022-12-05] MEDS: iohexol 350 mg/mL 500 mL Btl (per mL) IV (10:14)
--- NOTE | 2022-12-05 10:49 | PM.DCS ---
Discharge Providers Date of Admission: 11/25/22 20:31 Date of Discharge: December 05, 2022 Attending Provider at Admission: Pastor Troy MD Attending Provider at Discharge: Monica Waters MD Diagnoses at Discharge Discharge Diagnosis (1) Mild concentric left ventricular hypertrophy (LVH): Status: Acute (2) Diastolic CHF: Status: Acute (3) Morbid obesity: Status: Acute (4) Congestive heart failure: Status: Acute Qualifiers: Heart failure chronicity: acute on chronic Heart failure type: diastolic Qualified Code(s): I50.33 - Acute on chronic diastolic (congestive) heart failure (5) Major depressive disorder, recurrent, in full remission: Status: Acute (6) Acute respiratory failure with hypoxia: Status: Acute Reason for Visit Reason for Visit: SOB, hot flashes, back spasms Hospital Course Hospital Course 82-year-old female with history of essential tremors, depression, hypothyroidism, diastolic CHF who was recently discharged on 2 L of oxygen after diastolic CHF exacerbation management presented back with increased shortness of breath. Her symptoms were consistent with CHF with orthopnea PND orthopnea she was diuresed aggressively her antihypertensive regimen was held because of low blood pressure. Thoracentesis done 1 L removed, on 11/28 exudative, CT chest was requested which showed left hilar mass with lymph node involvement in the mediastinum Dr. Esteban was consulted, patient has been requiring 3 to 4 L of oxygen, status post bronchoscopy with bronchoalveolar lavage and EBUS on 12/02. Family was updated, Ms. Szymanski is stating that she would like to discuss her pathology report once it is back with her oncologist. Dr. Esteban is stating that he will follow-up with her pathology report and refer her to oncologist appropriately. I will give her referral for pulmonary at the time of discharge. Her cultures remain negative until the day of discharge. she is going to [facility] on 3 L of oxygen. She still very lethargic and fatigued however awake and alert answer my questions appropriately. CODE STATUS: DNR/DNI CTA CHEST 1.? Proximal main pulmonary arteries are normal. Segmental and subsegmental pulmonary arteries not well evaluated due to breathing artifact and LEFT lung consolidation. 2.? Progressed LEFT pleural effusion with airspace consolidation LEFT upper and lower lobes progressed compared to previous. 3.? Nodular pleural-based soft tissue implants LEFT lower lobe parietal and visceral pleura suspicious for metastatic disease. 4.? Additional hazy patchy infiltrate throughout the RIGHT lung. 5.? Small pericardial effusion. 6.? Masslike consolidation LEFT hilum similar to previous suspicious for neoplasm. Recommend further evaluation with bronchoscopy. 7.? Enlarged anterior mediastinal and peribronchial lymph nodes. 8.? Suspected diffuse metastasis throughout the liver. 9.? No other significant interval changes. Physical Exam Narrative: Signs of basilar CHF improving Awake and alert Nonfocal neuro exam Fatigued and lethargic currently on 3 L Abdomen soft Skin wrinkling noted Signs of CHF improving Urinary Catheter Management: Macario: Cath Placed During This Visit: yes Reason for Continuing Indwelling Catheter: Acute Urinary Retention or Obstruction Urinary Catheter Date of Insertion: 11/25/22 Urinary Catheter Time of Insertion: 21:20 Discharge Data Studies Completed and Pending Completed Studies During Hospitalization Category Date Time Status CT chest wo con [id number] Routine Cat Scan 11/29/22 14:57 Completed CTA PE [CT angio chest PE protcl [id number]] Routine Cat Scan 12/05/22 07:11 Taken XR chest 1V [id number] Routine Exams 11/30/22 10:02 Completed XR chest 1V portable [id number] Routine Exams 11/28/22 11:45 Completed XR chest 1V portable [id number] Stat Exams 11/25/22 18:20 Completed XR chest 1V portable [id number] Stat Exams 11/28/22 Completed Pathology: Surgical [PTH] Routine Pth 12/02/22 12:39 Completed CV. echo limited [id number] Routine Ultrasound 11/26/22 05:05 Completed US abdomen complete* [id number] Routine Ultrasound 12/01/22 11:00 Completed US thoracentesis [id number] Urgent Ultrasound 11/28/22 12:12 Completed Pending at discharge Category Date Time Status Bronch Washing Culture & GS Routine Lab 12/02/22 12:28 Results Mycobacteria, Culture w/Fluor Routine Lab 12/02/22 12:28 Received Cytology [PTH] Routine Pth 12/02/22 12:06 Received Cytology [PTH] Routine Pth 12/02/22 12:32 Received Radiology Impressions Thoracentesis Ultrasound 11/28/22 12:12 IMPRESSION: Uncomplicated ultrasound-guided LEFT thoracentesis with removal of [address] 11/29/22 14:57 IMPRESSION: 1. Lack of IV contrast causes significant limitation of this examination to evaluate for adenopathy and neoplasm. 2. Dense area of consolidation and masslike configuration centered at the LEFT hilum extending into the LEFT lower lobe. Highly suspicious for LEFT hilar mass. 3. Small LEFT pleural effusion. 4. LEFT visceral and parietal nodules suspicious for metastatic pleural-based disease. 5. Enlarged mediastinal and hilar lymph nodes. Suspect metastatic disease. 6. Abnormal liver. Metastatic disease diffusely throughout the liver or focally in the RIGHT lower lobe suspected. 7. Recommendation: CT chest, abdomen and pelvis with IV and oral contrast is recommended. If this CT cannot be performed recommend bronchoscopy and RIGHT upper quadrant ultrasound. Chest X-Ray 11/30/22 10:02 IMPRESSION: 1. Low lung volumes 2. Left perihilar interstitial congestion . 3. Left lower lobe pleural effusion Abdomen Ultrasound 12/01/22 11:00 IMPRESSION: 1. Mildly enlarged but very heterogeneous liver. No mass is identified. Study is limited by body habitus. 2. Cholelithiasis without acute cholecystitis. 3. Poorly visualized LEFT kidney. No hydronephrosis. 4. Bilateral renal cysts. Chest CTA 12/05/22 07:11 IMPRESSION: 1. Proximal main pulmonary arteries are normal. Segmental and subsegmental pulmonary arteries not well evaluated due to breathing artifact and LEFT lung consolidation. 2. Progressed LEFT pleural effusion with airspace consolidation LEFT upper and lower lobes progressed compared to previous. 3. Nodular pleural-based soft tissue implants LEFT lower lobe parietal and visceral pleura suspicious for metastatic disease. 4. Additional hazy patchy infiltrate throughout the RIGHT lung. 5. Small pericardial effusion. 6. Masslike consolidation LEFT hilum similar to previous suspicious for neoplasm. Recommend further evaluation with bronchoscopy. 7. Enlarged anterior mediastinal and peribronchial lymph nodes. 8. Suspected diffuse metastasis throughout the liver. 9. No other significant interval changes. Laboratory Results WBC 8.5 10^3/uL (4.0-10.0) 12/05/22 08:44 RBC 3.55 10^6/uL (4.1-5.3) L 12/05/22 08:44 Hgb 10.7 g/dL (11.5-15.3) L 12/05/22 08:44 Hct 34.0 % (37.0-47.0) L 12/05/22 08:44 MCV 95.8 fl (81-99) 12/05/22 08:44 MCH 30.1 pg (28.0-34.0) 12/05/22 08:44 MCHC 31.5 g/dL (30.0-36.0) 12/05/22 08:44 RDW 12.8 % (12.1-15.1) 12/05/22 08:44 Plt Count 290 10^3/cmm (130-400) 12/05/22 08:44 MPV 10.7 fL (7.4-10.4) H 12/05/22 08:44 Neut % (Auto) 69.9 % 12/05/22 08:44 Lymph % (Auto) 14.3 % 12/05/22 08:44 [place] % (Auto) 11.7 % 12/05/22 08:44 Eos % (Auto) 3.2 % 12/05/22 08:44 Baso % (Auto) 0.5 % 12/05/22 08:44 Neut # (Auto) 5.97 10^3/uL (1.8-7.7) 12/05/22 08:44 Lymph # (Auto) 1.2 10^3/uL (0.8-4.8) 12/05/22 08:44 [place] # (Auto) 1.0 10^3/uL (0.2-0.9) H 12/05/22 08:44 Eos # (Auto) 0.3 10^3/uL (0.0-0.8) 12/05/22 08:44 Baso # (Auto) 0.0 10^3/uL (0.0-0.1) 12/05/22 08:44 Nucleated RBC % (auto) 0 % 12/05/22 08:44 Total Counted Not Reportable 11/28/22 14:45 Nucleated RBCs # 0.0 /100WBC 12/05/22 08:44 PT 15.00 SECONDS (12.1-14.9) H 11/28/22 13:55 INR 1.15 (0.8-1.2) 11/28/22 13:55 Sodium 126 mmol/L (136-145) L 12/05/22 08:44 Potassium 5.6 mmol/L (3.5-5.1) H 12/05/22 08:44 Chloride 86 mmol/L (98-107) L 12/05/22 08:44 Carbon Dioxide 31 mmol/L (22-29) H 12/05/22 08:44 Anion Gap 14.6 (5-19) 12/05/22 08:44 BUN 23 mg/dL (8-23) 12/05/22 08:44 Creatinine 1.0 mg/dL (0.5-0.9) H 12/05/22 08:44 GFR Calculation Not Reportable 12/05/22 08:44 Glucose 195 mg/dL (65-115) H 12/05/22 08:44 POC Glucose 195 mg/dL (70-110) H 12/03/22 20:20 Calculated Osmolality 271 mOsm/kg (285-295) L 12/05/22 08:44 Lactic Acid 1.3 mmol/L (0.5-2.2) 11/25/22 18:51 Calcium 9.0 mg/dL (8.5-10.5) 12/05/22 08:44 Magnesium 2.2 mg/dL (1.7-2.3) 12/03/22 05:40 Lactate Dehydrogenase 401 U/L (135-214) H 11/28/22 19:40 Troponin T Baseline 44 ng/L (0-10) H 11/25/22 18:51 Troponin T 120 Minute 65.52 ng/L (0-10) H 11/25/22 20:15 Delta Troponin T 21.52 ABS# (0-10) H* 11/25/22 20:15 Troponin T Hi Sens 6Hr 57.19 ng/L (0-10) H 11/26/22 01:05 Troponin T Hi Sens 6Hr Delta 13.19 ng/L (0-12) H* 11/26/22 01:05 C-Reactive Protein 86.7 mg/L (0.0-4.9) H 11/26/22 01:05 NT-Pro-B Natriuret Pep 1958 pg/mL (0-450) H 11/26/22 01:05 Total Protein 6.3 g/dL (6.6-8.7) L 11/28/22 19:40 Procalcitonin 0.72 ng/mL (0-0.5) H 11/26/22 01:05 Pleural Color Red (Pale Yellow) H 11/28/22 14:45 Pleural Appearance Bloody (CLEAR) 11/28/22 14:45 Pleural pH 8.00 (6.5-7.5) H 11/28/22 14:45 Pleural Spec [place] 1.010 11/28/22 14:45 Pleural WBC 1158.000 /uL (0-1000) H 11/28/22 14:45 Pleural RBC 558.000 10^3/uL 11/28/22 14:45 Pleural Mononuc # Auto 0.947 10^3/uL 11/28/22 14:45 Pleural Other Cells Not Reportable 11/28/22 14:45 Pleural Polynuclear % 18 % 11/28/22 14:45 Pleural Polynuclear # 0.211 10^3/uL 11/28/22 14:45 Pleural Mononuclear % 82 % 11/28/22 14:45 Pleural Other Cells Lt Left lung 11/28/22 14:45 Pleural Total Protein 3.8 g/dL 11/28/22 14:45 Pleural Albumin 2.4 g/dL 11/28/22 14:45 Pleural LDH 280 U/L 11/28/22 14:45 Pleural Glucose 222.0 mg/dL 11/28/22 14:45 Pleural Triglycerides 48 mg/dL 11/28/22 14:45 Pleur Adenosine Deamin 26.2 U/L (<9.2) H 11/28/22 14:45 Bronch Specimen Source Left lower lobe 12/02/22 12:28 Bronchial Fluid Color Red 12/02/22 12:28 Bronchial Fluid Appearance Bloody (CLEAR) 12/02/22 12:28 Bronchial Fluid WBC 4 /uL 12/02/22 12:28 Bronchial Fluid RBC 38 10^3/uL 12/02/22 12:28 Bronch Cells Counted 200 12/02/22 12:28 Bronchial Neutrophils 74.00 % (0.9-2.3) H 12/02/22 12:28 Bronchial Lymphocytes 16.00 % (10.71-12.91) H 12/02/22 12:28 Bronchial Eosinophils 4.00 % (0.13-0.25) H 12/02/22 12:28 Bronchial Macrophages 5.00 % (83.6-86.8) L 12/02/22 12:28 Coronavirus 229E (PCR) Not detected (NOT DETECT) 12/01/22 08:40 Influenza Type A Ag negative (Negative) 11/25/22 18:26 Influenza Type B Ag negative (Negative) 11/25/22 18:26 SARS-CoV-2 (PCR) Not detected (NOT DETECT) 12/01/22 08:40 SARS-CoV-2 Ag (Rapid) negative (Negative) 12/05/22 05:45 Path Cons w/Slide Yes 11/28/22 14:45 Vitals Last Vital Signs Temp 98.0 F 12/05/22 07:05 Pulse 115 H 12/05/22 07:05 Resp 24 H 12/05/22 07:05 BP 134/92 12/05/22 07:05 Pulse Ox 90 12/05/22 07:05 O2 Del Method 12/05/22 07:05 O2 Flow Rate 4 12/05/22 04:00 FiO2 30 12/05/22 08:00 Discharge Plan Discharge Patient Disposition: Xfer SNF Condition: Stable Prescriptions: New amoxicillin-pot clavulanate 875-125 mg Tablet 1 tab PO BID Qty: 6 0RF Continued fexofenadine [Omaira Allergy] 60 mg tablet 60 mg PO DAILY PRN (Reason: Allergy Symptoms) tramadol 50 mg tablet 50 mg PO QID PRN (Reason: Pain) trazodone 150 mg tablet See Rx Instructions .ROUTE .COMPLEX Qty: 60 3RF Dose Instruction: TAKE 2 TABLETS BY MOUTH AT BEDTIME Rx Instructions: TAKE 2 TABLETS BY MOUTH AT BEDTIME levothyroxine 125 mcg tablet 125 mcg PO DAILY montelukast 10 mg Tablet 10 mg PO DAILY albuterol sulfate 90 mcg/actuation HFA aerosol inhaler 2 inh inhalation Q8H PRN (Reason: shortness of breath or wheezing) Qty: 8.5 2RF potassium chloride 10 mEq tablet extended release 10 meq PO DAILY Qty: 30 2RF Rx Instructions: Potassium to be taken only with Lasix, otherwise do not Changed atenolol 50 mg tablet 25 mg PO DAILY Qty: 30 0RF furosemide [Lasix] 20 mg tablet 40 mg PO DAILY Qty: 60 3RF lisinopril 10 mg Tablet 10 mg PO DAILY Qty: 60 3RF Discontinued primidone [Mysoline] 50 mg tablet 50 mg PO QID fluvoxamine 100 mg tablet See Rx Instructions .ROUTE .COMPLEX Qty: 60 3RF Dose Instruction: TAKE 1 TABLET BY MOUTH TWICE A DAY Rx Instructions: TAKE 1 TABLET BY MOUTH TWICE A DAY fluvoxamine 50 mg tablet 50 mg PO BEDTIME Rx Instructions: Take with 100 mg to equal 150mg in the evening Discharge Orders: Discharge Order (Routine); Ordered 12/05/22 Ordered By: Monica Waters Referrals: [facility] [Outside] Discharge Diet: Cardiac Discharge Activity: As per PT/OT instructions Patient Instructions: Opioid Safety Discharge Attestations Time Spent in Discharge Care*: less than 30 min Quality Metrics Clinical Quality Measures [ No reported AMI, CVA or VTE this stay] Coding Level of Care Code Acute g [facility] note Diagnoses Mild concentric left ventricular hypertrophy (LVH) I51.7 Diastolic CHF I50.30 Morbid obesity E66.01 Congestive heart failure I50.33 Heart failure chronicity: acute on chronic Heart failure type: diastolic Major depressive disorder, recurrent, in full remission F33.42 Acute respiratory failure with hypoxia J96.01
[2022-12-05] MEDS: sodium polystyrene sulfonate 15 gm/60 mL Btl PO (11:23)
--- NOTE | 2022-12-05 13:35 | PM.PN ---
Subjective Subjective: Small cell lung cancer Dr. Esteban spoke with the family, patient is agreeable for inpatient therapy if needed we will get Mediport Cancel discharge orders Vitals/I&O/Wt Last Vital Signs Temp 97.7 F 12/05/22 11:29 Pulse 105 H 12/05/22 12:23 Resp 24 H 12/05/22 12:23 BP 154/94 12/05/22 12:23 Pulse Ox 97 12/05/22 12:23 O2 Del Method 12/05/22 12:02 O2 Flow Rate 5 12/05/22 12:02 FiO2 30 12/05/22 08:00 12/04/22 12/05/22 12/05/22 22:59 06:59 14:59 Intake Total 360 / 840 360 / 360 Balance 360 / 840 360 / 360 Physical Exam Narrative: Patient is looking less fluid overloaded Currently on 3 to 4 L of oxygen Awake and alert Lethargic and fatigued Abdomen soft Able to comprehend and answer questions Hemodynamically stable Tachycardia Urinary Catheter Management: Macario: Cath Placed During This Visit: yes Reason for Continuing Indwelling Catheter: Acute Urinary Retention or Obstruction Urinary Catheter Date of Insertion: 11/25/22 Urinary Catheter Time of Insertion: 21:20 Data 12/05/22 08:44 12/05/22 08:44 Micro: Microbiology 12/02/22 12:28 Gram Stain - Final Lung Left Lower Lobe Bronchial Washings Culture - Final A&P Assessment and plan (1) Hyperkalemia: (2) Hilar adenopathy: (3) Acute respiratory failure with hypoxia: (4) Goals of care, counseling/discussion: (5) Mild concentric left ventricular hypertrophy (LVH): (6) Diastolic CHF: Plan Hyperkalemia: Given Kayexalate Small cell lung cancer We will get Mediport placed patient is agreeable for chemotherapy, Dr. Esteban has spoken with the family and awaiting response from Dr. Dean Cancel discharge orders Continue medical treatment Continue Augmentin, hold DVT prophylaxis Check BMP for tomorrow CT chest was requested because of persistent sinus tachycardia At home she was taking atenolol which I would continue, no signs of PE Attestations Medical Necessity Statement*: Mediport placement Time Spent in Patient Care: 30 Coding Level of Care Code Acute Code for [facility] Fwd Diagnoses Hyperkalemia E87.5 Hilar adenopathy R59.0 Acute respiratory failure with hypoxia J96.01 Goals of care, counseling/discussion Z71.89 Mild concentric left ventricular hypertrophy (LVH) I51.7 Diastolic CHF I50.30
[2022-12-05] MEDS: morphine 4 mg/mL SDV 1 mL 1 MG IVP (14:12)
--- NOTE | 2022-12-05 16:38 | PC.NURSE ---
report phoned to eladia at [email or web address] here to transport pt.discharged at this time
== END 2022-12-05 16:39 | disposition expired | DRG 291 ==
LOC: ER 20:07 → CSU 20:31
PROVIDERS: Internal Medicine; Internal Medicine Pulmonary Disease; Admitting Provider Family Medicine; Emergency Provider Family Medicine; Visit Provider Internal Medicine
PROC: 0BJ08ZZ Inspection of Tracheobronchial Tree, Via Natural or Artificial Opening Endoscopic (ICD-10-PCS; CPT 31622; principal; 2022-12-02 10:50)
PROC: BB4BZZZ Ultrasonography of Pleura (ICD-10-PCS; 2022-12-02 10:50)
DX: I11.0 Hypertensive heart disease with heart failure (principal); I50.33 Acute on chronic diastolic (congestive) heart failure; J96.21 Acute and chronic respiratory failure with hypoxia; C34.32 Malignant neoplasm of lower lobe, left bronchus or lung; Z68.42 Body mass index [BMI] 45.0-49.9, adult; I24.8 Other forms of acute ischemic heart disease; E87.1 Hypo-osmolality and hyponatremia; J90 Pleural effusion, not elsewhere classified; C77.1 Secondary and unspecified malignant neoplasm of intrathoracic lymph nodes; R59.0 Localized enlarged lymph nodes; K76.9 Liver disease, unspecified; E66.01 Morbid (severe) obesity due to excess calories; F32.5 Major depressive disorder, single episode, in full remission; G25.0 Essential tremor; E03.9 Hypothyroidism, unspecified; Z79.891 Long term (current) use of opiate analgesic; Z79.51 Long term (current) use of inhaled steroids; Z66 Do not resuscitate; G47.33 Obstructive sleep apnea (adult) (pediatric); M62.830 Muscle spasm of back; G89.29 Other chronic pain; E83.42 Hypomagnesemia; I07.1 Rheumatic tricuspid insufficiency
CPT/HCPCS: 31624; 31645; 31652; 32555; 36415; 36416; 51702; 71045; 71250; 71275; 76700; 80048; 80503; 82042; 82945; 82962; 83605; 83615; 83735; 83880; 83986; 84145; 84155; 84157; 84311; 84315; 84478; 84484; 85025; 85610; 86140; 87015; 87040; 87070; 87116; 87205; 87206; 87426; 87635; 87801; 87804; 88112; 88305; 88342; 89050; 93005; 93308; 94640; 94664; 96372; 96374; 97110; 97116; 97161; 97167; 97530; 97535; 99285; J0171; J0330; J1650; J1815; J1940; J2270; J2370; J2704; J3010; J7030; Q9967